=== PATIENT | male | born 1980 | race African-American/Black ===

== ENCOUNTER 2019-10-08 14:43 | Emergency (ER) | payer OTHER, SELFPAY ==
--- NOTE | ~2019-10-08 | XR_ITS ---
EXAMINATION: XR abdomen/kub 1V INDICATION: Right flank pain TECHNIQUE: Supine views of the abdomen were obtained on 2 radiographs. COMPARISON: None FINDINGS: No definite urinary tract calculi are identified. The bowel gas pattern is normal. The visu alized osseous structures are normal. IMPRESSION: 1. No radiographic correlate for the patient's symptoms. Reviewed, dictated and finalized at location A.
[2019-10-08 15:05] VITALS: BP 186/111; PULSE 93; RESP 16; TEMP 37.4; O2SAT 97
--- NOTE | 2019-10-08 15:17 | ED.MALEGU ---
HPI - Male Genitourinary General Chief complaint: Urogenital-Male Stated complaint: right side pain Time Seen by Provider: 10/08/19 15:08 Source: patient and RN notes reviewed Mode of arrival: ambulatory Limitations: no limitations History of Present Illness HPI Narrative: 39-year-old male presents with concern for 2-week history of right flank pain that occasionally radiates to the right abdomen. He reports nausea, without vomiting. Denies diarrhea, reports mild constipation. Reports his last bowel movement was this morning. Reports over the last 2 weeks he has had instances of shortness of breath for which he had a negative coronavirus test that was negative. He denies abdominal pain, fever, body aches, chills, sweats. Reports normal appetite. Reports when he drinks fluid his right flank hurts. MD Complaint: other (Flank pain) Related Data Allergies Allergy/AdvReac Type Severity Reaction Status Date / Time No Known Allergies Allergy Verified 11/02/18 15:03 Review of Systems Review of Systems: Narrative: CONSTITUTIONAL: Denies malaise, chills, sweats, or fever. CARDIOVASCULAR: Denies chest pain, palpitations, or edema. RESPIRATORY: Denies cough. Reports occasional dyspnea. GASTROINTESTINAL: Denies abdominal pain, vomiting, diarrhea, bloody, or mucous stools. Reports nausea GENITOURINARY: Denies dysuria or hematuria. Reports flank pain SKIN: Denies rash or itching. MUSCULOSKELETAL: Denies myalgia. NEUROLOGIC: Denies headache. All systems reviewed & are unremarkable except as noted in HPI and below PMFSH Social History Social History Smoking status: Never smoker Second hand tobacco smoke exposure: No Alcohol intake: current Comments At time of signature, agree with nursing past medical, surgical, social and family history. There is no relevant family history pertinent to the presenting complaint Exam Narrative: Exam Narrative: GENERAL: Well-appearing, well-nourished, and in no acute distress. HEAD: Normocephalic, atraumatic. EYES: PERRLA and EOMI. NECK: Supple. No lymphadenopathy. CHEST: Clear to auscultation. Clear to auscultation, equal breath sounds. No respiratory distress. HEART: Regular rate and rhythm. ABDOMEN: Soft, nontender, nondistended, normal active bowel sounds, no palpable or pulsatile masses. No CVA tenderness MUSCULOSKELETAL: Normal range of motion and strength in all extremities. No midline back tenderness to palpation. No paraspinal tenderness. Transfers from lying to sitting to standing. Right CVA tenderness SKIN: Warm, dry, no rash. NEURO: No focal deficits. Alert and oriented x3. Reflexes intact. Normal gait. PSYCH: Normal mood and affect Course Course Emergency Course: Patient with a diagnostic capability at the [facility] and possible transfer to emergency department for further evaluation. Patient reports he will make an appoint with his primary care doctor and understands reasons to go to the emergency room between now and then. He does not wish to be transferred to the emergency room at this time. Patient is aware of diagnosis, understands and agrees to treatment plan. Anticipatory guidance given. Patient agrees to follow-up as directed and is aware of reasons to seek care at the emergency department. Portions of this record may have been created with voice recognition software Vital Signs Vital signs: Vital Signs Temperature 99.4 F 10/08/19 15:05 Pulse Rate 93 10/08/19 15:05 Respiratory Rate 16 10/08/19 15:05 Blood Pressure 186/111 H 10/08/19 15:05 Pulse Oximetry 97 10/08/19 15:05 Temperature 99.4 F 10/08/19 15:05 Pulse Rate 93 10/08/19 15:05 Respiratory Rate 16 10/08/19 15:05 Blood Pressure 186/111 H 10/08/19 15:05 Pulse Oximetry 97 10/08/19 15:05 Reviewed. Patient has history of hypertension MDM - Male Genitourinary MDM Narrative Medical decision making narrative: No risk factors or findings concerning for epidural abscess,
== END 2019-10-08 16:00 | disposition home or self-care (01) ==
PROVIDERS: Emergency Provider Nurse Practitioner; PCP Family Medicine
DX: M54.5 Low back pain (principal); I10 Essential (primary) hypertension
CPT/HCPCS: 74018; 81003; 99213; G0463

== ENCOUNTER 2019-10-09 10:35 | Outpatient (CLI) | payer OTHER, SELFPAY ==
--- NOTE | ~2019-10-09 | XR_ITS ---
EXAMINATION: XR chest 2V EXAM DATE: 10/09/2019 13:31 INDICATION: Shortness of breath. TECHNIQUE: Frontal and lateral projections of the chest obtained and reviewed. Comparison is made to prior examination from 11/02/2018. FINDINGS: The lungs are clear. There are no pleural effusions. The cardiomediastinal silhouette is within normal limits. There is no pneumothorax suspected. The bones and soft tissues are unremarkab le. IMPRESSION: No acute cardiopulmonary findings. Reviewed, dictated and finalized at location A.
== END 2019-10-09 10:36 ==
PROVIDERS: PCP Family Medicine; Visit Provider Physician Assistant
DX: R06.02 Shortness of breath (principal)
CPT/HCPCS: 71046

== ENCOUNTER 2019-10-14 16:09 | Outpatient (CLI) | payer OTHER, SELFPAY ==
[2019-10-14 16:42] LABS: D Dimer 2.03 ug/mL (<0.48)
[2019-10-14 16:43] LABS: Alanine Aminotransferase 26 U/L (4-50); Albumin Level 4.3 g/dL (3.5-5.1); Alkaline Phosphatase 91 U/L (38-126); Anion Gap 10.9 mmol/L (7-16); Aspartate Amino Transferase 24 U/L (17-59); Bilirubin,Total 0.4 mg/dL (0.2-1.3); Blood Urea Nitrogen 15 mg/dL (9-20); Calcium 8.8 mg/dL (8.4-10.2); Carbon Dioxide 26 mmol/L (22-30); Chloride 106 mmol/L (98-107); Estimated Glomerular Filt Rate > 60; Glucose 136 mg/dL (75-110); Potassium 3.9 mmol/L (3.4-5.0); Sodium 139 mmol/L (137-145)
== END 2019-10-14 16:10 | disposition home or self-care (01) ==
PROVIDERS: PCP Family Medicine; Visit Provider Physician Assistant
DX: R06.02 Shortness of breath (principal); I10 Essential (primary) hypertension
CPT/HCPCS: 36415; 80053; 85380

== ENCOUNTER 2019-10-16 10:28 | Outpatient (CLI) | payer OTHER, SELFPAY ==
--- NOTE | ~2019-10-16 | CT_ITS ---
EXAMINATION: CTA chest PE protocol DATE: 10/16/2019 11:04 INDICATION: Pleurodynia. TECHNIQUE: Computed tomography angiography (CTA) of the chest was performed with 100 mL Omnipaque-350 intravenous contrast timed to evaluate the pulmonary arteries. Coronal maximum intensity projection 3D-reconstructions were created by the technologist. Automated exposure control and iterative reconst ruction technique were employed. The dose-length product was 1205.23 mGy-cm. COMPARISON: Chest CT 11/02/2018 FINDINGS: There is mild dependent atelectasis on the right. There is minimal atelectasis in lingula. There is a small right pleural effusion. The heart size is normal. No pericardial effusion. Main pulm onary artery is enlarged, consistent with pulmonary arterial hypertension. There is a pulmonary embol us in basilar right lower lobe. There is mild thoracic spondylosis. There is mild chronic anterior we dging of multiple lower thoracic vertebral bodies. IMPRESSION: 1. Pulmonary embolus in basilar right lower lobe. 2. Small right pleural effusion. Reviewed, dictated and finalized at location A.
== END 2019-10-16 10:29 | disposition home or self-care (01) ==
PROVIDERS: PCP Family Medicine; Visit Provider Family Medicine
DX: R07.81 Pleurodynia (principal); R79.89 Other specified abnormal findings of blood chemistry; J90 Pleural effusion, not elsewhere classified; I26.99 Other pulmonary embolism without acute cor pulmonale
CPT/HCPCS: 71275; Q9967

== ENCOUNTER 2020-01-23 14:16 | Outpatient (CLI) | payer OTHER, SELFPAY ==
--- NOTE | ~2020-01-23 | CT_ITS ---
EXAMINATION: CTA chest PE protocol EXAM DATE: 01/23/2020 15:00 INDICATION: Fatigue. Pulmonary embolus in follow-up. TECHNIQUE: Spiral CTA of the chest (pulmonary arteries) was performed with 200 cc Omnipaque 350 intr avenous contrast injection. (Patient was injected twice due to poor pulmonary arterial opacification on 1st scan) Images were acquired during the pulmonary arterial phase. Coronal maximum intensity pro jection 3D-reconstructions were created by the technologist on dedicated workstation. Axial, coronal and sagittal reformatted images were reviewed. The dose-length product (DLP) for this examination w as 2166.15 mGy-cm. The exposure was tailored according to patient size (auto mA exposure control), and iterative reconstruction (ASIR) was used as additional dose reduction technique. Comparison is ma de to prior examination from 10/16/2019. FINDINGS: There are no pulmonary emboli in the 1st through 3rd order (central and interlobar) pulmon sharif arteries. Some loss of attenuation in the segmental pulmonary arteries due to respiratory motion , but no intraluminal filling defects suspected. No thoracic aortic dissection. Subsegmental right basilar atelectasis. There are no pleural or pericardial effusions. Tracheobronchial tree is lawler nt. There is no mediastinal, hilar or axillary lymphadenopathy. There is no pneumothorax. Heart normal in size. There is mild coronary arterial calcification, arterial sclerosis. There is hepat ic steatosis. There is thoracic spondylosis without osteoblastic or osteolytic lesions identified. Compared to prior study, can't identify the suspected right lower lobe segmental segment. Previously seen small right pleural effusion has resolved, with improvement in the right basilar dependent atele ctasis. IMPRESSION: 1. Probable resolution of previously seen segmental pulmonary embolism. 2. Right basilar subsegmental atelectasis. Reviewed, dictated and finalized at location B. OPERATOR
[2020-01-23 14:48] LABS: Estimated Glomerular Filt Rate > 60
== END 2020-01-23 14:17 | disposition home or self-care (01) ==
PROVIDERS: PCP Family Medicine; Visit Provider Internal Medicine Hematology & Oncology
DX: R06.02 Shortness of breath (principal); J98.11 Atelectasis
CPT/HCPCS: 71275; Q9967

== ENCOUNTER 2020-05-27 16:08 | Emergency (ER) | payer OTHER, SELFPAY ==
--- NOTE | ~2020-05-27 | XR_ITS ---
XR knee RT 2V 05/27/2020 16:51 Indication: Right lateral knee pain Procedure: 2 views right knee Comparison: No prior studies for comparison. Findings: There is mild osteoarthritis of the right knee. There is a moderate joint effusion. No acut e fracture is identified. No foreign bodies. Impression: 1: No acute fracture. 2: Moderate joint effusion. Reviewed, dictated and finalized at location A. OLE BUILDER Impression: 1: No acute fracture. 2: Moderate joint effusion.
[2020-05-27 16:25] VITALS: BP 150/100; PULSE 76; RESP 20; TEMP 36.3; O2SAT 99
--- NOTE | 2020-05-27 16:53 | ED.LOWEXIN ---
HPI - Extremity Injury (Lower) General Chief Complaint: Extremity Injury, Lower Stated Complaint: right knee pain Source: patient Mode of arrival: ambulatory Limitations: no limitations History of Present Illness HPI Narrative: Patient is a 39-year-old male who presents complaining of right knee pain. Patient reports he walks significantly for work at over 20,000 steps daily. He reports history of PE in 10/06. He reports stopped taking Eliquis in December. He denies injury to right knee. Reports tenderness with palpation and mild swelling. Patient has a history of psoriasis and psoriasis noted over right knee. MD complaint: knee injury Related Data Home Medications Medication Instructions Recorded Confirmed aspirin 81 mg PO DAILY 02/05/20 05/27/20 Allergies Allergy/AdvReac Type Severity Reaction Status Date / Time No Known Allergies Allergy Verified 05/27/20 16:36 Review of Systems Review of Systems: Narrative: CONSTITUTIONAL: Denies fever, chills, or sweats. EYES: Denies visual changes, redness, or discharge. ENT: Denies rhinorrhea, congestion, sore throat, or otalgia. CARDIOVASCULAR: Denies chest pain, palpitations, or edema. RESPIRATORY: Denies cough or dyspnea. GASTROINTESTINAL: Denies abdominal pain, nausea, vomiting, or diarrhea. GENITOURINARY: Denies dysuria or hematuria. SKIN: Denies rash or itching. MUSCULOSKELETAL: Right knee pain NEUROLOGIC: Denies headache, numbness, dizziness, or weakness. PSYCHIATRIC: Denies anxiety or depression. [facility] Past Medical History Medical History (Updated 05/27/20 @ 17:07 by DOMINGA Hogan) Hypertension Psoriasis Pulmonary embolus Social History Social History Smoking packs per day: 1 Smoking cigarettes per day: 20.0 Years smoked: 20 Smoking pack-years: 20.00 Smoking status: Current every day smoker (1 pdd currently) Tobacco type: cigarettes Second hand tobacco smoke exposure: No Alcohol intake: current Gender identity (if verbalized by the patient): Male Spiritual care concerns: No Comments At the time of signature, I have reviewed and agree with nursing past medical, surgical, social, and family history unless otherwise noted. Please see nursing chart for further information. There is no relevant family history pertinent to the presenting complaint. Exam Narrative: Exam Narrative: GENERAL: Well-appearing, well-nourished, and in no acute distress. HEAD: Normocephalic, atraumatic. EYES: EOMI. No redness or drainage. Conjunctiva are normal. ENT: Mucous membranes pink and moist. CHEST: No respiratory distress. HEART: Regular rate and rhythm. GI: Soft, nontender without rebound, or guarding. EXTREMITIES: Normal range of motion. Mild edema and tenderness with palpation to right lateral knee SKIN: Warm, dry, no rash. NEURO: No focal deficits. Alert and oriented x3. Gait steady. PSYCH: Normal affect. No signs of depression or anxiety. Course Vital Signs Vital signs: Vital Signs Temperature 36.3 C L 05/27/20 16:25 Pulse Rate 76 05/27/20 16:25 Respiratory Rate 20 05/27/20 16:25 Blood Pressure 150/100 H 05/27/20 16:25 Pulse Oximetry 99 05/27/20 16:25 Temperature 36.3 C L 05/27/20 16:25 Pulse Rate 76 05/27/20 16:25 Respiratory Rate 20 05/27/20 16:25 Blood Pressure 150/100 H 05/27/20 16:25 Pulse Oximetry 99 05/27/20 16:25 Reviewed. Patient has been instructed to follow-up with his PCP regarding his blood pressure. MDM - Extremity Injury (Lower) MDM Narrative Medical decision making narrative: Patient's x-ray shows no fracture or abnormality. X-ray shows mild osteoarthritis and small knee effusion. Norm wrap applied. And patient to follow-up with PCP in 3 to 5 days. Patient is stable for discharge to home with outpatient follow-up as needed. Differential Diagnosis Differential diagnosis: Likely other (Consideration of the following c
== END 2020-05-27 17:14 | disposition home or self-care (01) ==
PROVIDERS: Emergency Provider Nurse Practitioner; PCP Family Medicine
DX: S86.911A Strain of unspecified muscle(s) and tendon(s) at lower leg level, right leg, initial encounter (principal); X58.XXXA Exposure to other specified factors, initial encounter; I10 Essential (primary) hypertension; Z79.82 Long term (current) use of aspirin; Z86.711 Personal history of pulmonary embolism
CPT/HCPCS: 73560; 99213; G0463

== ENCOUNTER 2020-10-30 09:02 | Outpatient (CLI) | payer OTHER, SELFPAY ==
--- NOTE | ~2020-10-30 | CT_ITS ---
EXAMINATION: CTA chest PE protocol DATE: 10/30/2020 09:37 INDICATION: Shortness of breath, history of pulmonary embolism TECHNIQUE: Computed tomography angiography (CTA) of the chest was performed with 200 mL Omnipaque-350 intravenous contrast timed to evaluate the pulmonary arteries. Coronal maximum intensity projection 3D-reconstructions were created by the technologist. The dose-length product (DLP) was 2313.34 mGy-cm . Automated exposure control and iterative reconstruction technique were employed. COMPARISON: 01/23/2020 FINDINGS: The pulmonary arteries are moderately well-opacified. No pulmonary embolism is identified. Respiratory motion artifact slightly limits the examination. The lungs are free of acute opacities. T here is no pleural effusion or pneumothorax. No pathologically enlarged thoracic lymph nodes are iden tified. The heart size is normal. Again is chronic anterior wedging of multiple lower thoracic verteb ral bodies. IMPRESSION: 1. No pulmonary embolism or acute cardiopulmonary abnormality. Reviewed, dictated and finalized at location B.
== END 2020-10-30 09:03 | disposition home or self-care (01) ==
PROVIDERS: PCP Family Medicine; Visit Provider Family Medicine
DX: I26.99 Other pulmonary embolism without acute cor pulmonale (principal)
CPT/HCPCS: 71275; Q9967

== ENCOUNTER 2020-11-13 10:13 | Outpatient (CLI) | payer OTHER, SELFPAY ==
--- NOTE | ~2020-11-13 | US_ITS ---
EXAMINATION: US venous doppler [facility] DATE: 11/13/2020 10:53 INDICATION: Lower limb swelling TECHNIQUE: Grayscale ultrasound images without and with compression and Doppler ultrasound images of the bilateral lower extremity veins were obtained. COMPARISON: None. FINDINGS: The visualized portions of right common femoral vein, profunda (deep) femoral vein, femoral vein, pop liteal vein, posterior tibial veins, peroneal veins, gastrocnemius vein and greater saphenous vein ou tflow are patent. The visualized portions of left common femoral vein, profunda femoral vein, femoral vein, popliteal v ein, posterior tibial veins, peroneal veins, gastrocnemius vein and greater saphenous vein outflow ar e patent. IMPRESSION: 1. No deep venous thrombosis in either lower limb. Reviewed, dictated and finalized at location B.
== END 2020-11-13 10:14 | disposition home or self-care (01) ==
LOC: ANHIMG 10:17
PROVIDERS: PCP Family Medicine; Visit Provider Family Medicine
DX: R60.0 Localized edema (principal); Z86.718 Personal history of other venous thrombosis and embolism
CPT/HCPCS: 93970

== ENCOUNTER 2020-12-12 09:28 | Emergency (ER) | payer OTHER, SELFPAY ==
--- NOTE | ~2020-12-12 | XR_ITS ---
EXAMINATION: XR ankle RT min 3V EXAM DATE: 12/12/2020 11:01 INDICATION: Right lateral ankle pain states he walks a lot. TECHNIQUE: Right ankle frontal, lateral and oblique projections obtained and reviewed. There is no p rior study for comparison. FINDINGS: The right ankle mortise appears intact. No evidence of talar osteochondral defect. Small inferior calcaneal spur. There are no acute fractures or dislocations identified. There is no subcu taneous gas. The soft tissue is unremarkable. There are no radiopaque foreign bodies. IMPRESSION: Small right calcaneal spur. Reviewed, dictated and finalized at location A. IMPRESSION: Small right calcaneal spur.
[2020-12-12 09:50] VITALS: BP 148/91; PULSE 71; RESP 16; TEMP 36.7; O2SAT 98
--- NOTE | 2020-12-12 10:11 | ED.GENADULT ---
HPI - General Adult General Chief complaint: Extremity Injury, Lower Stated complaint: right ankle pain Time Seen by Provider: 12/12/20 10:11 Source: patient Mode of arrival: ambulatory Limitations: no limitations History of Present Illness HPI narrative: 40-year-old male patient presents to the [facility] with complaints of right ankle pain that started 2 days ago. Patient states he walks often at work. Patient states he has been having swelling and most of the pain is to the lateral side of the ankle. Patient denies any specific injury to the ankle that he is aware of. Related Data Home Medications Medication Instructions Recorded Confirmed aspirin 81 mg PO DAILY 02/05/20 12/12/20 Allergies Allergy/AdvReac Type Severity Reaction Status Date / Time No Known Allergies Allergy Verified 12/12/20 10:03 Review of Systems Review of Systems: CONSTITUTIONAL: Denies fever, chills, or sweats. EYES: Denies visual changes, redness, or discharge. ENT: Denies rhinorrhea, congestion, sore throat, or otalgia. CARDIOVASCULAR: Denies chest pain, palpitations, or edema. RESPIRATORY: Denies cough or dyspnea. GASTROINTESTINAL: Denies abdominal pain, nausea, vomiting, or diarrhea. GENITOURINARY: Denies dysuria or hematuria. SKIN: Denies rash or itching. MUSCULOSKELETAL: Denies back pain, joint pain, or myalgia. Positive right ankle pain NEUROLOGIC: Denies headache, numbness, or weakness. PSYCHIATRIC: Denies anxiety or depression. PMFSH Past Medical History Medical History Hypertension Obesity, morbid, BMI 40.0-49.9 Psoriasis Pulmonary embolus Tobacco abuse Urinary symptom or sign Social History Social History Smoking packs per day: 1 Smoking cigarettes per day: 20.0 Years smoked: 20 Smoking pack-years: 20.00 Smoking status: Current every day smoker Tobacco type: cigarettes Second hand tobacco smoke exposure: No Alcohol intake: current Gender identity (if verbalized by the patient): Male Spiritual care concerns: No Comments At the time of my signature I agree with nursing past medical history, surgical, social, and family history. There is no relevant family history pertinent to the presenting complaint. Exam Narrative: GENERAL: Well-appearing, well-nourished, and in no acute distress. HEAD: Normocephalic, atraumatic. EYES: PERRLA and EOMI. ENT: Nares clear, no rhinorrhea or epistaxis. Mucous membranes moist. NECK: Supple. No lymphadenopathy CHEST: Clear to auscultation. No respiratory distress. HEART: Regular rate and rhythm. No murmur heard. Normal peripheral pulses. ABDOMEN: Soft, nontender, nondistended, normal active bowel sounds. EXTREMITIES: Patient is able to bear weight and ambulate without pain. The R ankle is without obvious asymmetry or deformity when compared to the L ankle. Patient can flex/extend but complains of pain with both of these motions, no pain with invert/[place]. No obvious surface trauma, ecchymosis, soft tissue swelling noted to bilateral ankles.. No bony tenderness to palpation over the medial or lateral malleolus. Patient complaining of pain to the lateral side of the ankle. Anterior talofibular ligament, posterior talofibular ligament, calcaneofibular ligament nontender and without swelling. No tenderness or deformity of the midfoot or over the proximal fifth metatarsal. Good DP and posterior tibial pulses and sensation to light touch normal. Talar tilt test is negative for ligament laxity to valgus or vargus stress. Negative anterior draw. Peroneal nerve is intact with strong eversion and plantar flexion. SKIN: Warm, dry, no rash. NEURO: No focal deficits. Alert and oriented x3. Course Reevaluation(s) Reevaluation #1: Reevaluated patient notified him that his x-ray is negative and only shows a little bit of a calcaneal spur which most likely is not causing his lateral p
== END 2020-12-12 11:27 | disposition home or self-care (01) ==
PROVIDERS: Emergency Provider Nurse Practitioner Family; PCP Family Medicine
DX: S93.401A Sprain of unspecified ligament of right ankle, initial encounter (principal); I10 Essential (primary) hypertension; F17.210 Nicotine dependence, cigarettes, uncomplicated; X58.XXXA Exposure to other specified factors, initial encounter
CPT/HCPCS: 73610; 99213; G0463

== ENCOUNTER 2020-12-27 12:59 | Emergency (ER) | payer OTHER, SELFPAY ==
[2020-12-27] VITALS (9 sets, daily range): BP systolic 133–157; BP diastolic 86–98; PULSE 90–104; RESP 20–30; TEMP 37.2; O2SAT 92–95
--- NOTE | ~2020-12-27 | CT_ITS ---
EXAMINATION: CTA chest PE protocol DATE: 12/27/2020 14:39 INDICATION: Shortness of breath. Prior pulmonary embolus and. TECHNIQUE: Computed tomography (CT) pulmonary angiogram of the chest was performed with 200 mL Omnipa que-350 intravenous contrast. Additional 3D reconstructions utilizing coronal maximum intensity proje ction (MIP) were performed. Automated exposure control and iterative reconstruction technique were em ployed. The dose-length product was 1909.70 mGy-cm. COMPARISON: 10/30/2020 FINDINGS: Suboptimal contrast opacification of the pulmonary arteries on both initial and repeat imaging. There is mild streak artifact from dense contrast in the superior vena cava and right atrium. Moderate to severe scattered respiratory motion artifact most prominent in the lower lung zones renders assessmen t in the subsegmental pulmonary arteries is essentially nondiagnostic. Mild decreased sensitivity in the segmental pulmonary arteries, moderately decreased sensitivity in the smaller subsegmental pulmon sharif arteries in the mid and upper lung zones. No pulmonary embolism. Small right pleural effusion. Th ere is consolidation in the right lower lobe with significant corresponding volume loss and favor ate lectasis over pneumonia. Additional smaller regions of consolidation similarly more likely atelectasi s than pneumonia in the left lower lobe, lingula and mild discoid atelectasis in the right middle lob e along the minor fissure. Heart size is normal. No pericardial effusion. Thoracic aorta is normal in caliber with no dissection. No pathologically enlarged thoracic lymphadenopathy. Diffuse hepatic navi atosis. Mild anterior wedging of a few lower thoracic vertebral bodies. Mild thoracic spondylosis. IMPRESSION: 1. No evident pulmonary embolism. Evaluation is however significantly limited by suboptimal contrast opacification of the pulmonary arteries and prominent motion artifact. 2. Regions of consolidation in the bilateral lower lungs most prominent in the right lower lobar ther e is corresponding volume loss and favor atelectasis over pneumonia. 3. Small right pleural effusion. 4. Diffuse hepatic steatosis. Reviewed, dictated and finalized at location A. IMPRESSION: 1. No evident pulmonary embolism. Evaluation is however significantly limited b y suboptimal contrast opacification of the pulmonary arteries and prominent mot ion artifact. 2. Regions of consolidation in the bilateral lower lungs most prominent in the right lower lobar there is corresponding volume loss and favor atelectasis over pneumonia. 3. Small right pleural effusion. 4. Diffuse hepatic steatosis.
[2020-12-27 14:03] LABS: Basophils Percent Auto 0.3 % (0.2-1.2); Eosinophils Absolute Auto 0.2 K/mm3 (0-0.3); Hematocrit 50.7 % (42.0-52.0); Hemoglobin 17.8 g/dL (14.0-18.0); Immature Granulocyte Absolute 0.05 K/mm3 (0.00-0.031); Immature Granulocyte Percent A 0.3 % (0-0.5); Lymphocytes Percent Auto 11.2 % (18.3-44.2); Mean Corpuscular HGB Conc 35.1 g/dl (32-36); Mean Corpuscular Hemoglobin 32.5 pg (26-34); Mean Corpuscular Volume 92.5 fl (80-100); Mean Platelet Volume 8.6 fl (7.4-10.4); Monocytes Absolute Auto 1.5 K/mm3 (0.1-0.6); Monocytes Percent Auto 10.5 % (2.6-8.5); Neutrophils Percent Auto 76.7 % (45.5-73.1); Platelet Count Result 253 k/mm3 (150-375); Red Blood Count 5.48 M/mm3 (4.6-6.20); Red Cell Distribution Width 13.2 % (11.5-14.5); White Blood Count 14.3 K/mm3 (4.5-10.0)
[2020-12-27] MEDS: KETOROLAC 30 MG/ML VIAL (*BKC) IV PUSH (14:09)
[2020-12-27] MEDS: SODIUM CHLORIDE 0.9% IV 1,000 ML 999 ML IV CONT (14:09)
[2020-12-27 14:12] LABS: Alanine Aminotransferase 24 U/L (4-50); Albumin Level 4.8 g/dL (3.5-5.1); Alkaline Phosphatase 90 U/L (38-126); Anion Gap 10 mmol/L (8-16); Aspartate Amino Transferase 24 U/L (17-59); Bilirubin,Total 0.9 mg/dL (0.2-1.3); Blood Urea Nitrogen 13 mg/dL (9-20); Carbon Dioxide 25 mmol/L (22-30); Chloride 103 mmol/L (98-107); Estimated CRCL calculation 191 ml/min; Estimated Glomerular Filt Rate > 60; Glucose 115 mg/dL (65-110); Magnesium 1.8 mg/dL (1.6-2.3); Sodium 138 mmol/L (137-145)
[2020-12-27 14:13] LABS: INR 1.5; Prothrombin Time 17.9 Seconds (11.1-14.7)
[2020-12-27 14:14] LABS: Partial Thromboplastin Time 36.4 SECONDS (22.3-36.8)
[2020-12-27 14:24] LABS: Troponin I < 0.012 ng/mL (0.000-0.034)
--- NOTE | 2020-12-27 14:27 | ECG_ITS ---
Measurements Intervals [place] Rate: 100 P: 50 WI: 176 QRS: 19 QRSD: 105 T: 13 QT: 342 QTc: 441 Interpretive Statements SINUS TACHYCARDIA LEFT ATRIAL ENLARGEMENT DELAYED PRECORDIAL R/S TRANSITION BORDERLINE T WAVE ABNORMALITY- INFERIOR LEADS BASELINE ARTIFACT- II, III, AVL BORDERLINE ECG Electronically Signed On 12-28-2020 8:00:32 CDT by Jassi Young D.O.
--- NOTE | 2020-12-27 17:48 | ED.SOB ---
HPI - SOB/Dyspnea General Chief Complaint: Shortness of Breath/Dyspnea Stated Complaint: i think i have pneumonia Time Seen by Provider: 12/27/20 13:10 Source: patient Mode of arrival: ambulatory Limitations: no limitations History of Present Illness HPI Narrative: 40-year-old male history of obesity, hypertension and PE in the past complaining of cough, subjective fever and right lower chest pain for 2 days. Patient is taken Tylenol without relief. Cough worse at night and worse with exertion. And worse with laying flat. Immunizations up-to-date including Covid. No known sick contacts. No recent hospitalizations. Speaking full sentences with difficulty. Pain worse with inspiration described as sharp, nonradiating also worse with cough. MD elicited complaint: shortness of breath, cough and pain with inspiration Pertinent past history: PE and DVT Onset (ago): day(s) (2) Context: occurred during exertion Timing: progressively worsening Severity: moderate Exacerbating factors: exertion and coughing Relieving factors: nothing and rest Known history of: PE Associated symptoms: pain with inspiration, fever, diaphoresis and chest congestion Treatment prior to arrival: other (Tylenol, OTC cough medicine.) Related Data Home oxygen amount: none Home Medications Medication Instructions Recorded Confirmed aspirin 81 mg PO DAILY 02/05/20 12/12/20 amlodipine 12/27/20 labetalol 12/27/20 lisinopril 12/27/20 triamterene-hydrochlorothiazid tablet 12/27/20 Allergies Allergy/AdvReac Type Severity Reaction Status Date / Time No Known Allergies Allergy Verified 12/12/20 10:03 Review of Systems Review of Systems: CONSTITUTIONAL: fever at home, no weight loss, no confusion EYES: no vision changes, no eye pain ENT: no rhinorrhea, no sore throat, no difficulty swallowing CARDIOVASCULAR: positive for pleuritic chest pain, no leg edema, no palpitations RESPIRATORY: positive for cough, positive for shortness of breath, no hemoptysis GASTROINTESTINAL: no abdominal pain, no nausea, no vomiting, no diarrhea GENITOURINARY: no flank pain, no dysuria, no hematuria SKIN: no rash, no jaundice MUSCULOSKELETAL: no back pain, no trauma. NEUROLOGIC: No headache, no dizziness, no focal weakness PSYCHIATRIC: No hallucinations, no suicidal ideation PMFSH Past Medical History Medical History Hypertension Obesity, morbid, BMI 40.0-49.9 Psoriasis Pulmonary embolus Tobacco abuse Urinary symptom or sign Social History Social History Smoking packs per day: 1 Smoking cigarettes per day: 20.0 Years smoked: 20 Smoking pack-years: 20.00 Smoking status: Current every day smoker Tobacco type: cigarettes Second hand tobacco smoke exposure: No Alcohol intake: current Gender identity (if verbalized by the patient): Male Spiritual care concerns: No Exam Narrative: General: alert, afebrile, answering all questions appropriately Head: normocephalic, atraumatic Eyes: EOMI bilaterally, anicteric, no injection ENT: moist mucous membranes, oropharynx patent, no rhinorrhea Neck: supple, trachea midline, no JVD Chest: equal chest rise bilaterally, no chest wall trauma noted Lungs: decreased BS R base, respirations unlabored CV: regular rate, 1-2+ MITZY B, calf size equal bilaterally Abd: soft, non-distended, non-tender, no rebound, no gaurding, negative Bronson's EXT: no deformity noted, moving all extremities equally Skin: warm, dry, no pallor Neuro: alert, oriented x 3; CN 2-12 grossly intact, no dysarthria Psych: affect appropriate, though content normal Course Course Emergency Course: Pleuritic chest pain improved after Toradol IV. Pulse improved with pulse in the 90s, pulse ox 94 to 96% on room air. IV antibiotics given for community-acquired pneumonia. Patient does not wish to stay in the ambulating without difficulty
== END 2020-12-27 18:15 | disposition home or self-care (01) ==
PROVIDERS: Emergency Provider Emergency Medicine; PCP Family Medicine
DX: J18.9 Pneumonia, unspecified organism (principal); R07.81 Pleurodynia; I10 Essential (primary) hypertension; Z86.711 Personal history of pulmonary embolism; E66.9 Obesity, unspecified; Z68.42 Body mass index [BMI] 45.0-49.9, adult; F17.210 Nicotine dependence, cigarettes, uncomplicated; K76.0 Fatty (change of) liver, not elsewhere classified; R00.0 Tachycardia, unspecified; R94.31 Abnormal electrocardiogram [ECG] [EKG]
CPT/HCPCS: 36415; 71275; 80053; 83735; 84484; 85025; 85610; 85730; 87040; 93005; 96361; 96365; 96367; 96375; 99284; J0456; J0696; J1885; J7030; Q9967

== ENCOUNTER 2021-12-30 12:57 | Emergency (ER) | payer OTHER, SELFPAY ==
--- NOTE | 2021-12-30 13:22 | ED.URI ---
HPI - URI/Sore Throat General Chief Complaint: Upper Respiratory Infection Stated Complaint: uri Time Seen by Provider: 12/30/21 14:46 Source: patient and RN notes reviewed Mode of arrival: ambulatory Limitations: no limitations History of Present Illness HPI Narrative: 41-year-old male presents with concern for 1 week history of sinus congestion, pressure, drainage, sore throat, cough, general malaise. Reports nighttime cough is worse. He reports several members of his family have similar illness. MD elicited complaint: cough, sore throat and nasal congestion Related Data Home Medications Medication Instructions Recorded Confirmed aspirin 81 mg tablet 81 mg PO DAILY 02/05/20 12/30/21 Allergies Allergy/AdvReac Type Severity Reaction Status Date / Time No Known Allergies Allergy Verified 12/30/21 14:13 Review of Systems Review of Systems: CONSTITUTIONAL: Reports malaise EYES: Denies visual changes, redness, or discharge. ENT: Reports rhinorrhea, congestion, and sore throat. Denies sinus pain, otalgia CARDIOVASCULAR: Denies chest pain, palpitations, or edema. RESPIRATORY: Reports cough. Denies dyspnea. GASTROINTESTINAL: Denies abdominal pain, nausea, vomiting, diarrhea SKIN: Denies rash or itching. MUSCULOSKELETAL: Denies myalgia. NEUROLOGIC: Denies headache. All systems reviewed & are unremarkable except as noted in HPI and below PMFSH Past Medical History Medical History Hypertension Obesity, morbid, BMI 40.0-49.9 Psoriasis Pulmonary embolus Tobacco abuse Urinary symptom or sign Social History Social History Smoking packs per day: 1 Smoking cigarettes per day: 20.0 Years smoked: 20 Smoking pack-years: 20.00 Smoking status: Smoker, status unknown Tobacco type: cigarettes Second hand tobacco smoke exposure: No Alcohol intake: current Gender identity (if verbalized by the patient): Male Spiritual care concerns: No Comments At time of signature, agree with nursing past medical, surgical, social and family history. There is no relevant family history pertinent to the presenting complaint Exam Narrative: GENERAL: Nontoxic appearing and in no acute distress. HEAD: Normocephalic EYES: PERRLA, conjunctivae clear ENT: Nares clear, turbinates edematous and erythematous, clear discharge. Mucous membranes moist. TM pearly zambrano with dull light reflex bilaterally; no tragal tenderness. Oropharynx not erythematous without lesions. Tonsils not enlarged and without exudate, no drooling, no hoarseness, no trismus, uvula midline. NECK: Supple. No lymphadenopathy CHEST: Clear to auscultation, breath sounds equal. No wheezing, rhonchi, rales, or stridor. No respiratory distress, speaks in full sentences. HEART: Regular rate and rhythm. No murmur heard. SKIN: Warm, dry, no rash. NEURO: Alert and oriented x3. PSYCH: Normal mood and affect Course Course Emergency Course: Patient is aware of diagnosis, understands and agrees to treatment plan. Anticipatory guidance given. Patient agrees to follow-up as directed and is aware of reasons to seek care at the emergency department. Portions of this record may have been created with voice recognition software Level of Care: Express Care Visit Vital Signs Vital signs: Vital Signs Temperature 98.7 F 12/30/21 14:28 Pulse Rate 87 12/30/21 14:28 Respiratory Rate 16 12/30/21 14:28 Blood Pressure 145/81 H 12/30/21 14:28 Pulse Oximetry 98 12/30/21 14:28 Oxygen Delivery Room Air 12/30/21 14:28 Temperature 98.7 F 12/30/21 14:28 Pulse Rate 87 12/30/21 14:28 Respiratory Rate 16 12/30/21 14:28 Blood Pressure 145/81 H 12/30/21 14:28 Pulse Oximetry 98 12/30/21 14:28 Oxygen Delivery Room Air 12/30/21 14:28 Reviewed. MDM - URI/Sore Throat MDM Narrative Medical decision making narrative: Differential diagnosi
[2021-12-30 14:28] VITALS: BP 145/81; PULSE 87; RESP 16; TEMP 37.1; O2SAT 98
== END 2021-12-30 15:02 | disposition home or self-care (01) ==
PROVIDERS: Emergency Provider Nurse Practitioner; PCP Family Medicine
DX: J32.9 Chronic sinusitis, unspecified (principal); J40 Bronchitis, not specified as acute or chronic; F17.210 Nicotine dependence, cigarettes, uncomplicated; I10 Essential (primary) hypertension; Z86.711 Personal history of pulmonary embolism; E66.01 Morbid (severe) obesity due to excess calories; Z68.42 Body mass index [BMI] 45.0-49.9, adult
CPT/HCPCS: 87081; 87880; 99213; G0463

== ENCOUNTER 2024-12-03 15:52 | Emergency (ER) | payer OTHER, SELFPAY ==
[2024-12-03] VITALS (8 sets, daily range): BP systolic 135–144; BP diastolic 80–106; PULSE 69–100; RESP 17–25; TEMP 36.5–37.3; O2SAT 91–96
--- NOTE | ~2024-12-03 | XR_ITS ---
EXAMINATION: XR chest 2V, 12/03/2024 16:39 CDT HISTORY: SOB COMPARISON: No comparisons available. Technique: 2 views obtained. Findings: The lungs are clear, no effusion. No pneumothorax. Heart is normal size. Mediastinal and hilar contours are within normal limits. Bony thorax no acute abnormality. Impression: No acute cardiopulmonary abnormality. Reviewed, dictated and finalized at location A. Impression: No acute cardiopulmonary abnormality.
--- NOTE | ~2024-12-03 | CT_ITS ---
CTA CHEST CLINICAL HISTORY: chest pain h/o PE . COMPARISON: Chest x-ray today TECHNIQUE: Helical CTA performed from thoracic inlet to upper abdomen IV contrast information not listed in PACS Coronal, sagittal reformats. Multiplanar MIPS CT images acquired with automatic exposure control for dose reduction DLP: 2385 mGy-cm FINDINGS: Respiratory motion artifact. Pulmonary arteries: Insufficient opacification. Thoracic Aorta: No dissection or aneurysm. Heart/pericardium: Enlarged. RV/LV ratio: Normal. Lungs/Pleura: A few peripheral areas of groundglass opacity right lung. Small right pleural effusion. Tracheobronchial tree: Patent. Nodes: No enlarged nodes. Bones: No acute bony abnormality. Soft tissues: Unremarkable. Visualized upper abdomen: Cirrhosis, hepatomegaly, steatosis. IMPRESSION: 1. Markedly suboptimal opacification of pulmonary arteries exacerbated by motion artifact makes examination for PE essentially nondiagnostic. 2. Nonetheless, worrisome for PE as some pulmonary arteries appear to contain PE in addition to several pulmonary foci that may represent pulmonary infarcts. 3. Strongly consider repeat scan for verification. Reviewed, dictated and finalized at location R. IMPRESSION: 1. Markedly suboptimal opacification of pulmonary arteries exacerbated by sania on artifact makes examination for PE essentially nondiagnostic. 2. Nonetheless, worrisome for PE as some pulmonary arteries appear to contain PE in addition to several pulmonary foci that may represent pulmonary infarcts. 3. Strongly consider repeat scan for verification.
--- NOTE | 2024-12-03 16:20 | ECG_ITS ---
Test Date: 2024-12-03 16:35:25 Measurements Intervals [place] Rate: 84 P: 68 VT: 168 QRS: 71 QRSD: 104 T: 15 QT: 382 QTc: 452 Interpretive Statements SINUS RHYTHM POSSIBLE LEFT ATRIAL ENLARGEMENT [-0.1mV P-WAVE IN V1/V2] PROBABLE LATERAL MYOCARDIAL INFARCTION , OF INDETERMINATE AGE [35 ms Q WAVE IN I/aVL/V5/V6] ABNORMAL ECG No previous ECG available for comparison Electronically Signed On 12-03-2024 17:19:58 CDT by Marco Antonio Garcia M.D.
[2024-12-03 16:44] LABS: Hematocrit 51.2 % (42.0-52.0); Hemoglobin 18.0 g/dL (14.0-18.0); Immature Granulocyte Percent A 0.3 % (0-0.5); Lymphocytes Absolute Auto 2.59 K/mm3 (0.9-3.2); Mean Corpuscular HGB Conc 35.2 g/dl (32-36); Mean Corpuscular Hemoglobin 33.6 pg (26-34); Mean Corpuscular Volume 95.5 fl (80-100); Nucleated Red Blood Cells Absolute Auto 0.000 K/mm3 (0.0-0.012); Nucleated Red Blood Cells Perc 0.0 % (0.0-0.2); Platelet Count Result 205 k/mm3 (150-375); Red Blood Count 5.36 M/mm3 (4.6-6.20); White Blood Count 13.7 K/mm3 (4.5-10.0)
[2024-12-03 16:46] LABS: Alanine Aminotransferase 28 U/L (6-50); Albumin Level 4.1 g/dL (3.5-5.1); Alkaline Phosphatase 95 U/L (38-126); Anion Gap 7 mmol/L (4-12); Aspartate Amino Transferase 29 U/L (17-59); Bilirubin,Total 0.7 mg/dL (0.2-1.3); Blood Urea Nitrogen 12 mg/dL (9-20); Calcium 8.4 mg/dL (8.4-10.2); Carbon Dioxide 25 mmol/L (22-30); Chloride 106 mmol/L (98-107); Estimated CRCL calculation 189 ml/min; Estimated Glomerular Filt Rate > 60; Glucose 109 mg/dL (65-110); Potassium 3.7 mmol/L (3.4-5.0); Sodium 138 mmol/L (137-145); Total Protein 8.0 g/dL (6.3-8.2)
--- OUTSIDE RECORDS SUMMARY | 2024-12-03 16:47 | XMS_ITS | Clinical Summary ---
Author Organization [facility] Sameer Burrell Address [address] [place] [address] Care Team Providers Care Material Spreader Name Role Phone Janet Davis MD Primary Care Provider [phone] Allergies No known active allergies Medications amLODIPine (NORVASC) 2.5 mg tablet 11/08/2019 Active lisinopriL (PRINIVIL) 40 mg tablet 12/10/2019 Active Xarelto 20 mg Tablet 10/22/2019 Active triamterene-hyd roCHLOROthiazid e (DYAZIDE) 37.5-25 mg capsule Take 1 Capsule by mouth daily in the morning. Active labetaloL (NORMODYNE) 100 mg tablet 12/25/2019 Active Active Problems Problem Noted Date Diagnosed Date Erythrocytosis 12/25/2019 Leukocytosis (leucocytosis) 12/25/2019 Acute pulmonary embolism without acute cor pulmo nale 12/25/2019 Family History Medical History Relation Name Comments Healthy Daughter Healthy Sister Healthy Son 1 Healthy Son 2 Relation Name Status Comments Daughter Alive Mother Sister Alive Son 1 Alive Son 2 Alive Social History Tobacco Use Types Packs/Day Years Used Date Smoking Tobacco: Every Day Cigarettes 1 15 Smokeless Tobacco: Never Alcohol Use Standard Drinks/Week Comments Yes 0 (1 standard drink = 0.6 oz pur e alcohol) occasionlly Sex and Gender Information Value Date Recorded Sex Assigned at Not on file Legal Sex Male 11:12 AM CDT Gender Identity Not on file Sexual Orientation Not on file Last Filed Vital Signs Vital Sign Reading Time Taken Comments Blood Pressure 178/103 01/28/2020 2:25 PM PARENT AIDE first bp 193/108 Pulse 87 01/28/2020 2:25 PM PARENT AIDE Temperature 37.3 C (99.2 F) 01/28/2020 2:25 PM PARENT AIDE Respiratory Rate - - Oxygen Saturation 98% 01/28/2020 2:2 5 PM PARENT AIDE Inhaled Oxygen Concentration - - Weight 186.5 kg (411 lb 3.2 oz) 01/28/2020 2:25 PM PARENT AIDE Height 195.6 cm (6' 5) 01/28/2020 2:25 PM PARENT AIDE Body Mass Index 48.76 01/28/2020 2:25 PM PARENT AIDE Plan of Treatment Health Maintenance Due Date Last Done Comments DTAP/TDAP/TD VACCINES (1 - Tdap) 2001 HEPATITIS B VACCINES (1 of 3 - 19+ 3-dose series) 08/2001 HPV VACCINES (1 - 3-dose SCDM series) 2009 INFLUENZA VACCINE (#1) 2024 Care Teams Material Spreader Relationship Specialty Start Date End Date Janet Davis MD [address] [place] [address] PCP - General Family Practice 12/19/19
--- NOTE | 2024-12-03 19:23 | ED.SOB ---
HPI - SOB/Dyspnea General Chief Complaint: Shortness of Breath/Dyspnea Stated Complaint: DYSPNEA Time Seen by Provider: 12/03/24 16:50 Source: patient Mode of arrival: ambulatory Limitations: no limitations History of Present Illness HPI Narrative: 44-year-old with a history of PE presents to the ER with a complains of pain in the right the lower intercostal area since last night. Patient states that he had a similar pain a few years ago when he was diagnosed with PE. He is presently not on any anticoagulant. Be denies any shortness of breath or cough fever or chills. MD elicited complaint: chest pain Pertinent past history: PE Onset (ago): day(s) (1) Timing: constant Severity: moderate Exacerbating factors: nothing Relieving factors: nothing Known history of: PE Associated symptoms: chest pain Treatment prior to arrival: none Related Data Home oxygen amount: none Home Medications ?Medication ?Instructions ?Recorded ?Confirmed ?Last Taken ?Type risankizumab-rzaa 150 mg/mL 150 mg subcut ONCE 06/06/22 07/01/24 Unknown History subcutaneous syringe (Skyrizi) Allergies Allergy/AdvReac Type Severity Reaction Status Date / Time No Known Allergies Allergy Verified 12/03/24 15:54 Review of Systems Review of Systems: All systems reviewed & are unremarkable except as noted in HPI and below Constitutional: Constitutional: Reports no additional constitutional complaints Eyes: Eyes: Reports no additional eye complaints ENT: Reports system reviewed and no additional complaints, except as documented Cardiovascular: Cardiovascular: Reports as per HPI Respiratory: Respiratory: Reports as per HPI Gastrointestinal: Gastrointestinal: Reports no additional gastrointestinal complaints Musculoskeletal: Musculoskeletal: Reports no additional musculoskeletal complaints [facility] Past Medical History Medical History (Updated 12/03/24 @ 19:25 by Jay Millan MD) Prediabetes Tobacco abuse Obesity, morbid, BMI 40.0-49.9 Urinary symptom or sign Pulmonary embolus Psoriasis Hypertension Social History Social History Smoking packs per day: 1 Smoking cigarettes per day: 20.0 Years smoked: 20 Smoking pack-years: 20.00 Smoking status: Current every day smoker Tobacco type: cigarettes (1 pack per day) Second hand tobacco smoke exposure: No Alcohol intake: current Drinks per week: 7 Substance use: never Substance use type: does not use Lack of Transportation: No Lack of Food: Never True Current Housing: I Have Housing Concerned About Future Housing: No Difficulty Paying Gas/Electric Bills: No Difficulty Paying for Meds: No Currently Unemployed: No Education: High School Diploma/GED Difficulty w/ Childcare or Family Care: No Gender identity (if verbalized by the patient): Male Spiritual care concerns: No Exam Narrative: GENERAL: WELL-APPEARING, WELL-NOURISHED, AND IN NO ACUTE DISTRESS. HEAD: NORMOCEPHALIC, ATRAUMATIC. EYES: PERRLA AND EOMI. ENT: NARES CLEAR, NO RHINORRHEA OR EPISTAXIS. MUCOUS MEMBRANES MOIST. NECK: SUPPLE. CHEST: CLEAR TO AUSCULTATION. NO RESPIRATORY DISTRESS. HEART: REGULAR RATE AND RHYTHM. NO MURMUR HEARD. NORMAL PERIPHERAL PULSES. ABDOMEN: SOFT, NONTENDER, NONDISTENDED, NORMAL ACTIVE BOWEL SOUNDS. EXTREMITIES: NORMAL RANGE OF MOTION. NO EDEMA. SKIN: WARM, DRY, NO RASH. NEURO: NO FOCAL DEFICITS. ALERT AND ORIENTED X3. PSYCH: NORMAL MOOD AND AFFECT. Course Course Emergency Course: NOTIFIED PATIENT ABOUT HIS LAB WORK, CT FINDINGS. ADVISED HIM TO TAKE XARELTO PRESCRIBED. FOLLOW UP WITH HIS PRIMARY DOCTOR. RETURN TO THE ER IF HE HAS INCREASED PAIN OR SHORTNESS OF BREATH. Vital Signs Vital signs: Vital Signs Temperature 36.5 C 12/03/24 15:59 Pulse Rate 91 12/03/24 15:59 Respiratory Rate 17 12/03/24 15:59 Blood Pressure 143/88 H 12/03/24 15:59 Pulse Oximetry 95 12/03/24 15:59 Temperature 37.3 C 12/03/24 18:47 Pulse Rate 95 12/03/24 18:47 Respiratory Rate 18 12/03/24 18:47 Blood Pressure 144/102 H 12/03/24 18:47 Pulse Oximetry 96 12/03/24 18:49 Oxygen Delivery Nasal Cannula 12/03/24 18:49 Oxygen Flow Rate 2 12/03/24 18:49 MDM - SOB/Dyspnea Differential Diagnosis Differential diagnosis: Likely acute exacerbation of chronic obstructive airways disease, community acquired pneumonia and pulmonary embolism Medical Records Attestation: I reviewed the patient's medical records. Lab Data Attestation: I reviewed the patient's lab results. 12/03/24 16:26 12/03/24 16:26 Labs: Lab Results 12/03/24 Range/Units 16:26 WBC 13.7 H (4.5-10.0) K/mm3 RBC 5.36 (4.6-6.20) M/mm3 Hgb 18.0 (14.0-18.0) g/dL Hct 51.2 (42.0-52.0) % MCV 95.5 (80-100) fl MCH 33.6 (26-34) pg MCHC 35.2 (32-36) g/dl RDW 14.2 (11.5-14.5) % Plt Count 205 (150-375) k/mm3 MPV 8.5 (7.4-10.4) fl Immature Gran % (Auto) 0.3 (0-0.5) % Neut % (Auto) 71.1 (45.5-73.1) % Lymph % (Auto) 18.9 (18.3-44.2) % Mcminn % (Auto) 6.9 (2.6-8.5) % Eos % (Auto) 2.3 (0-4.4) % Baso % (Auto) 0.5 (0.2-1.2) % Lymph # (Auto) 2.59 (0.9-3.2) K/mm3 Mcminn # (Auto) 1.0 H (0.1-0.6) K/mm3 Eos # (Auto) 0.3 (0-0.3) K/mm3 Baso # (Auto) 0.1 (0.0-0.1) K/mm3 Abs Immat Gran (auto) 0.04 H (0.00-0.031) K/mm3 Absolute Neuts (auto) 9.8 H (1.3-6.7) K/mm3 Absolute Nucleated RBC 0.000 (0.0-0.012) K/mm3 Nucleated RBC % 0.0 (0.0-0.2) % Sodium 138 (137-145) mmol/L Potassium 3.7 (3.4-5.0) mmol/L Chloride 106 (98-107) mmol/L Carbon Dioxide 25 (22-30) mmol/L Anion Gap 7 (4-12) mmol/L BUN 12 (9-20) mg/dL Creatinine 0.80 (0.7-1.3) mg/dL Estim Creat Clear Calc 189 ml/min Estimated GFR > 60 (59 - ) Glucose 109 (65-110) mg/dL Calcium 8.4 (8.4-10.2) mg/dL Total Bilirubin 0.7 (0.2-1.3) mg/dL AST 29 (17-59) U/L ALT 28 (6-50) U/L Alkaline Phosphatase 95 (38-126) U/L Total Protein 8.0 (6.3-8.2) g/dL Albumin 4.1 (3.5-5.1) g/dL Imaging Data Radiologist's impression: ITS Impressions Chest X-Ray 12/03/24 17:27 Impression: No acute cardiopulmonary abnormality. Chest CTA 12/03/24 18:08 IMPRESSION: 1. Markedly suboptimal opacification of pulmonary arteries exacerbated by motion artifact makes examination for PE essentially nondiagnostic. 2. Nonetheless, worrisome for PE as some pulmonary arteries appear to contain PE in addition to several pulmonary foci that may represent pulmonary infarcts. 3. Strongly consider repeat scan for verification. ECG Data EKG #1: ECG completion date: 12/03/24 ECG completion time: 16:35 EKG Interpretation: normal rate (84), no ectopy, no ST changes, normal QRS and NL axis Discharge Plan Discharge Clinical Impression: Pulmonary embolism Qualifiers: Pulmonary embolism type: unspecified Chronicity: unspecified Acute cor pulmonale presence: without acute cor pulmonale Qualified Code(s): I26.99 - Other pulmonary embolism without acute cor pulmonale Patient Disposition: Home Condition: Stable Instructions: Pulmonary Embolism (ED) Additional Instructions: Take meds as prescribed , follow with your doctor return to ER if your increase in CP or SOB Patient Language: Ukrainian Prescriptions: New Xarelto DVT-PE Treat 30d Start 15 mg (42)- 20 mg (9) tablets,dose pack See Rx Instructions .ROUTE .COMPLEX Qty: 51 0RF Rx Instructions: take one-15 mg tablet twice daily for 21 days, then one-20 mg tablet once daily; must take with meal/food No Action sildenafil [Viagra] 25 mg tablet 25 mg PO DAILY PRN (Reason: sexual activity) Qty: 1 0RF Rx Instructions: administer 30 minutes to 4 hours before activity Skyrizi 150 mg/mL syringe 150 mg subcut ONCE amlodipine 10 mg tablet See Rx Instructions .ROUTE .COMPLEX Qty: 90 3RF Dose Instruction: TAKE ONE TABLET BY MOUTH EVERY DAY Rx Instructions: TAKE ONE TABLET BY MOUTH EVERY DAY lisinopril 40 mg tablet 40 mg PO DAILY Qty: 90 2RF triamterene-hydrochlorothiazid 37.5-25 mg tablet 1 tablet PO DAILY Qty: 90 1RF labetalol 100 mg tablet 100 mg PO BID Qty: 180 3RF Follow-up/Referrals: Janet Davis MD [Primary Care Provider, Family Practice] Time of Disposition: 19:44
[2024-12-03] MEDS: RIVAROXABAN 15 MG TABLET PO (20:03)
== END 2024-12-03 20:09 | disposition home or self-care (01) ==
PROVIDERS: Physician Assistant; Emergency Provider Family Medicine; PCP Family Medicine
DX: I26.99 Other pulmonary embolism without acute cor pulmonale (principal); I10 Essential (primary) hypertension; R73.03 Prediabetes; E66.01 Morbid (severe) obesity due to excess calories; Z68.42 Body mass index [BMI] 45.0-49.9, adult; L40.9 Psoriasis, unspecified; F17.210 Nicotine dependence, cigarettes, uncomplicated; Z86.711 Personal history of pulmonary embolism; R94.31 Abnormal electrocardiogram [ECG] [EKG]
CPT/HCPCS: 36415; 71046; 71275; 80053; 85025; 93005; 99284; A9270; Q9967

== ENCOUNTER 2024-12-04 17:48 | Inpatient (IN) | payer OTHER, SELFPAY ==
--- NOTE | ~2024-12-04 | XR_ITS ---
EXAMINATION: XR chest 1V portable DATE: 12/06/2024 05:23 INDICATION: Pneumonia. Pulmonary embolism. TECHNIQUE: frontal view of the chest was obtained. COMPARISON: Chest radiograph and CT dated 12/04/2024 FINDINGS: Increasing opacities at the bilateral mid to lower lung zones with blunting at the costophrenic angle suggesting this includes small bilateral pleural effusions. No pneumothorax. Heart size is normal. IMPRESSION: 1. Increasing opacities in bilateral mid and lower lung zones consistent with atelectasis, pneumonia and/or pulmonary infarcts likely superimposed over small bilateral pleural effusions. Reviewed, dictated and finalized at location A. IMPRESSION: 1. Increasing opacities in bilateral mid and lower lung zones consistent with a telectasis, pneumonia and/or pulmonary infarcts likely superimposed over small bilateral pleural effusions.
--- NOTE | ~2024-12-04 | CT_ITS ---
CT ABDOMEN AND PELVIS WITHOUT CONTRAST Clinical History: bilateral flank pain ? renal stone Comparison: Renal ultrasound one day prior Technique: Unenhanced axial images lung bases to symphysis pubis Coronal, sagittal reformats CT images acquired with automatic exposure control for dose reduction DLP: 1727 mGy-cm Findings: Without intravenous contrast, sensitivity for detecting visceral parenchymal abnormalities decreased. Lung bases: Bibasilar airspace disease, right lung worse. Visualized heart and pericardium: Cardiomegaly. Liver: Cirrhosis. Enlarged. Steatosis. Gallbladder: Unremarkable. Spleen: Unremarkable. Pancreas: Unremarkable. Adrenal glands: Unremarkable. Kidneys: Right kidney- No hydronephrosis. No renal stones. Left kidney- No hydronephrosis. No renal stones. Distal esophagus/stomach: Unremarkable. Small bowel loops: Normal caliber and wall thickness. Colon: Normal caliber and wall thickness. Normal RLQ appendix. Nodes: No enlarged nodes. Peritoneum: No ascites. No free intraperitoneal air. Urinary bladder: Unremarkable. Prostate: Unremarkable. Bones: No acute bony abnormality. Soft tissues: Unremarkable. Unopacified abdominal aorta: No aneurysmal dilatation. IMPRESSION: 1. Bibasilar pulmonary infarcts and/or pneumonia. 2. No renal stones or hydronephrosis. 3. No other acute abnormality within abdomen or pelvis. Reviewed, dictated and finalized at location R.
--- NOTE | ~2024-12-04 | XR_ITS ---
EXAMINATION: XR chest 1V portable DATE: 12/04/2024 18:33 INDICATION: Shortness of breath TECHNIQUE: frontal view of the chest was obtained. COMPARISON: Chest radiograph and CT dated 12/03/2024 FINDINGS: Interval increase consistent interstitial and airspace opacities at the bilateral lower lung zones which could represent pulmonary edema or pneumonia. No pneumothorax or definitive pleural effusion. The cardiomediastinal silhouette is within normal limits for AP technique. IMPRESSION: 1. Increasing opacities in the bilateral lower lung zones consistent with pulmonary edema or pneumonia. Reviewed, dictated and finalized at location A. IMPRESSION: 1. Increasing opacities in the bilateral lower lung zones consistent with pulmo nary edema or pneumonia.
--- NOTE | ~2024-12-04 | XR_ITS ---
EXAMINATION: XR chest 1V portable DATE: 12/09/2024 09:00 INDICATION: Pulmonary embolism TECHNIQUE: frontal view of the chest was obtained. COMPARISON: Chest radiograph dated 12/06/[address] dated 12/04/2024 FINDINGS: Improved aeration at the bilateral lung bases with some persistent patchy and bandlike opacities in the lower lung zones which could represent pulmonary infarct, atelectasis, pneumonia or some combination thereof. No pleural effusion or pneumothorax. Heart size is normal. IMPRESSION: 1. Decreasing opacities in bilateral lower lung zones which could relate to pulmonary infarcts, atelectasis, pneumonia or some combination thereof. Reviewed, dictated and finalized at location A. IMPRESSION: 1. Decreasing opacities in bilateral lower lung zones which could relate to pul monary infarcts, atelectasis, pneumonia or some combination thereof.
--- NOTE | ~2024-12-04 | US_ITS ---
EXAMINATION: US renal BI DATE: 12/06/2024 16:34 INDICATION: Costovertebral angle tenderness. TECHNIQUE: Multiple ultrasound grayscale images of the kidneys were obtained. COMPARISON: CT 12/04/2024 FINDINGS: The right kidney measures 12.3 x 6.8 x 6.2 cm. The left kidney measures 13.8 x 6.5 x 6.2 cm. The kidneys demonstrate normal parenchymal echogenicity. There is no hydronephrosis. The bladder is normal. IMPRESSION: 1. Normal kidneys. No hydronephrosis. Reviewed, dictated and finalized at location E.
--- NOTE | ~2024-12-04 | US_ITS ---
EXAMINATION: US venous doppler [facility], 12/05/2024 7:45 CDT HISTORY: pe and edema to legs COMPARISON: None Technique: Hartley-scale and color Doppler images were attempted of the lower saphenofemoral junction, common femoral vein,superficial femoral vein, proximal deep femoral vein, proximal deep femoral vein, popliteal vein and posterior tibial veins. Findings: Deep Venous System:There is a thrombus with diminished flow in the left popliteal and posterior tibial veins, the remaining visualized deep venous system is unremarkable Superficial Venous SystemNo superficial thrombophlebitis. Soft tissues: Soft tissues are unremarkable. Impression: Left-sided DVT. Reviewed, dictated and finalized at location A. Impression: Left-sided DVT.
--- NOTE | ~2024-12-04 | CT_ITS ---
EXAMINATION: CTA chest PE abdomen pel DATE: 12/04/2024 19:16 INDICATION: Shortness of breath TECHNIQUE: Computed tomography (CT) pulmonary angiogram of the chest was performed with 100 mL Omnipaque-350 intravenous contrast. Additional 3D reconstructions utilizing coronal maximum intensity projection (MIP) were performed. CT of the abdomen and pelvis was performed with intravenous contrast utilizing the same contrast bolus following a short delay. Automated exposure control and iterative reconstruction technique were employed. The dose-length product was 2813.45 mGy-cm. COMPARISON: None FINDINGS: Chest: Again seen is suboptimal contrast opacification of the pulmonary arteries which limits evaluation some of the smaller subsegmental pulmonary arteries. There is nonetheless sufficient contrast to definitively identified pulmonary emboli in the several of the basilar segmental and subsegmental pulmonary arteries in the bilateral lower lobes. Decreased attenuation in the right upper lobar and posterior segmental pulmonary arteries is also suspicious for pulmonary embolism however there is some streak artifact from adjacent dense contrast in the superior vena cava which decreases specificity. Patchy consolidation and some surrounding groundglass opacities in the right lower lobe which along with a small peripheral small region of peripheral consolidation in the posterior segment right upper lobe with central groundglass opacity are suspicious for secondary pulmonary infarcts with differential including pneumonia. Consolidation at the basilar aspect of the lingula and bandlike opacity extension across the basilar left lower lobe with similar differential also including atelectasis. Tiny right pleural effusion. Heart size is normal. No leftward bowing of the ventricular septum to suggest right heart strain. No pericardial effusion. Thoracic aorta is normal in caliber with no dissection. No pathologically enlarged thoracic lymphadenopathy. Mild bilateral gynecomastia. Moderate lower thoracic spondylosis. Chronic appearing minimal to mild anterior wedging at T6-T12. Abdomen/pelvis: Diffuse hepatic steatosis with focal sparing along the gallbladder fossa. New small amount of likely vicariously excreted contrast related to CT study from one day prior which layers dependently in the otherwise normal gallbladder. Spleen, pancreas, bilateral adrenal glands and kidneys are normal. Bladder is normal. Bowels including the appendix are normal. No free intraperitoneal gas or fluid. No pathologically enlarged abdominal or pelvic lymphadenopathy. Moderate lumbosacral spondylosis with mild spondylosis more cephalad lumbar spine. IMPRESSION: 1. Pulmonary emboli involving multiple basilar segmental and subsegmental pulmonary arteries in the bilateral lower lobes and possibly also in the right upper lobar and posterior segmental pulmonary arteries. No findings of right heart strain. 2. Increasing airspace disease in the bilateral lower lobes, right greater than left and in the posterior right upper lobe suspicious for pulmonary infarcts with differential including pneumonia, atelectasis or some combination thereof. 3. No acute intra-abdominal/pelvic process. 4. Diffuse hepatic steatosis. Reviewed, dictated and finalized at location A. IMPRESSION: 1. Pulmonary emboli involving multiple basilar segmental and subsegmental pulmo nary arteries in the bilateral lower lobes and possibly also in the right upper lobar and posterior segmental pulmonary arteries. No findings of right heart s train. 2. Increasing airspace disease in the bilateral lower lobes, right greater than left and in the posterior right upper lobe suspicious for pulmonary infarcts w ith differential including pneumonia, atelectasis or some combination thereof. 3. No acute intra-abdominal/pelvic process. 4. Diffuse hepatic steatosis.
[2024-12-04 17:49] VITALS: BP 160/98; PULSE 102; RESP 22; TEMP 37.1; O2SAT 91
--- NOTE | 2024-12-04 17:57 | ECG_ITS ---
Test Date: 2024-12-04 18:07:34 Measurements Intervals [place] Rate: 102 P: 56 MT: 174 QRS: 20 QRSD: 104 T: 45 QT: 350 QTc: 456 Interpretive Statements SINUS TACHYCARDIA LEFT ATRIAL ENLARGEMENT [-0.15mV P WAVE IN V1/V2] INCOMPLETE RIGHT BUNDLE BRANCH BLOCK [90+ ms QRS DURATION, TERMINAL R IN V1/V2, 40+ ms S IN I/aVL/V4/V5/V6] ABNORMAL ECG Compared to ECG 12/03/2024 16:35:25 Incomplete right bundle-branch block now present Sinus rhythm no longer present Myocardial infarct finding no longer present Electronically Signed On 12-05-2024 07:57:13 CDT by Marco Antonio Garcia M.D.
[2024-12-04 18:05] VITALS: PULSE 107; RESP 20; O2SAT 83
--- NOTE | 2024-12-04 18:12 | PC.NURSE ---
Pt found to be 80% on RA, Pt placed on 6L NC and brought O2 up to 95%. ED respiratory made aware as well as EDP, Dr. Stevens.
--- NOTE | 2024-12-04 18:15 | ED.SOB ---
HPI - SOB/Dyspnea General Chief Complaint: Shortness of Breath/Dyspnea Stated Complaint: SOB Time Seen by Provider: 12/04/24 18:14 Source: patient Mode of arrival: ambulatory Limitations: no limitations History of Present Illness HPI Narrative: 44 years old white male came to the ED by private car complaining of worsening shortness of breath after being diagnosed with a PE yesterday. Patient was started on Xarelto. Patient is a 191 kg, history of sleep apnea, on BiPAP, hypertension, tobacco dependent, drink alcohol daily, denies any drug use. Came back complaining of chest pain, back pain, abdominal pain with chills worse today compared to yesterday. The above symptom has been steady, worsening with any activities. Related Data Home Medications ?Medication ?Instructions ?Recorded ?Confirmed ?Last Taken ?Type risankizumab-rzaa 150 mg/mL 150 mg subcut ONCE 06/06/22 07/01/24 Unknown History subcutaneous syringe (Skyrizi) Allergies Allergy/AdvReac Type Severity Reaction Status Date / Time No Known Allergies Allergy Verified 12/03/24 15:54 Review of Systems Review of Systems: All systems reviewed & are unremarkable except as noted in HPI and below PMFSH Past Medical History Medical History Prediabetes Tobacco abuse Obesity, morbid, BMI 40.0-49.9 Urinary symptom or sign Pulmonary embolus Psoriasis Hypertension Social History Social History Smoking packs per day: 1 Smoking cigarettes per day: 20.0 Years smoked: 20 Smoking pack-years: 20.00 Smoking status: Current every day smoker Tobacco type: cigarettes (1 pack per day) Second hand tobacco smoke exposure: No Alcohol intake: current Drinks per week: 7 Substance use: never Substance use type: does not use Lack of Transportation: No Lack of Food: Never True Current Housing: I Have Housing Concerned About Future Housing: No Difficulty Paying Gas/Electric Bills: No Difficulty Paying for Meds: No Currently Unemployed: No Education: High School Diploma/GED Difficulty w/ Childcare or Family Care: No Gender identity (if verbalized by the patient): Male Spiritual care concerns: No Exam Narrative: General appearance: Well-developed, well-nourished Skin: Normal color Head: Normocephalic, nontraumatic Eyes: Clear conjunctiva ENT: Oropharynx normal, ears normal, nose normal Neck: Supple, nontender Chest and respiratory: Airway patent, no respiratory distress, no accessory muscle use Heart: Regular rate/rhythm Abdomen: Soft, diffuse abdominal tenderness mainly on the right side, no organomegaly, quiet bowel sounds Vascular: Normal peripheral pulses, normal capillary refill. Musculoskeletal: Normal range of motion, nontender back Neurologic: Alert and oriented ?3, EXTRUSION PROCESS OPERATOR is normal as tested, no gross motor deficit Course Vital Signs Vital signs: Vital Signs Temperature 37.1 C 12/04/24 17:49 Pulse Rate 102 H 12/04/24 17:49 Respiratory Rate 22 H 12/04/24 17:49 Blood Pressure 160/98 H 12/04/24 17:49 Pulse Oximetry 91 12/04/24 17:49 Oxygen Delivery Room Air 12/04/24 17:49 Temperature 37.1 C 12/04/24 17:49 Pulse Rate 107 H 12/04/24 18:05 Respiratory Rate 20 12/04/24 18:05 Blood Pressure 160/98 H 12/04/24 17:49 Pulse Oximetry 83 L 12/04/24 18:05 Oxygen Delivery Room Air 12/04/24 18:05 MDM - SOB/Dyspnea MDM Narrative Medical decision making narrative: Patient came with worsening shortness of breath, been diagnosis of pulmonary embolism yesterday in addition diffuse abdominal pain mainly right upper quadrant Vital signs showing blood pressure 160/98, heart rate 102, saturation on room air 83% Physical examination showing morbidly obese patient, nasal cannula on, 5 L of oxygen, saturation 96%, diffuse abdominal tenderness, difficult to evaluate breath sounds because of the patient body habitus. Differential diagnosis: New extra pulmonary embolism, pneumonia, congestive heart failure, pleural effusion, cholecystitis, pancreatitis, appendicitis, diverticulitis, constipation Blood workup today include CBC, CMP, lipase, troponin, proBNP showed WBC 17.9 hemoglobin 18.6 PT 17.8, INR 1.5 otherwise within normal limit Patient tested negative for COVID flu and RSV EKG on arrival showed sinus tachycardia at 102 beats per minute abnormal finding yesterday are not available today Chest x-ray showed lower lung zones bilaterally showing opacity consistent with pulmonary edema or pneumonia CTA pulmonary showed pulmonary embolism, pneumonia no findings of right heart strain. CT abdomen and pelvis with IV contrast showed no acute abnormality Diagnosis acute hypoxic respiratory failure, hypoxia today more likely secondary to pneumonia on top of pulmonary embolism. I believe the pulmonary embolism is stable condition at this time, CT scan showed no finding of right heart strain. My recommendation to continue Xarelto and to start Rocephin, azithromycin for community-acquired pneumonia. Admit to hospitalist Differential Diagnosis Differential diagnosis: Likely other (As above) Medical Records Attestation: I reviewed the patient's medical records. Lab Data Attestation: I reviewed the patient's lab results. 12/04/24 18:12 12/04/24 18:12 Labs: Lab Results 12/04/24 12/04/24 12/04/24 Range/Units 18:12 18:35 20:12 WBC 17.9 H (4.5-10.0) K/mm3 RBC 5.55 (4.6-6.20) M/mm3 Hgb 18.6 H (14.0-18.0) g/dL Hct 52.6 H (42.0-52.0) % MCV 94.8 (80-100) fl MCH 33.5 (26-34) pg MCHC 35.4 (32-36) g/dl RDW 14.3 (11.5-14.5) % Plt Count 208 (150-375) k/mm3 MPV 8.5 (7.4-10.4) fl Immature Gran % (Auto) 0.3 (0-0.5) % Neut % (Auto) 75.2 H (45.5-73.1) % Lymph % (Auto) 13.8 L (18.3-44.2) % [place] % (Auto) 9.3 H (2.6-8.5) % Eos % (Auto) 1.1 (0-4.4) % Baso % (Auto) 0.3 (0.2-1.2) % Lymph # (Auto) 2.47 (0.9-3.2) K/mm3 [place] # (Auto) 1.7 H (0.1-0.6) K/mm3 Eos # (Auto) 0.2 (0-0.3) K/mm3 Baso # (Auto) 0.1 (0.0-0.1) K/mm3 Abs Immat Gran (auto) 0.06 H (0.00-0.031) K/mm3 Absolute Neuts (auto) 13.4 H (1.3-6.7) K/mm3 Absolute Nucleated RBC 0.000 (0.0-0.012) K/mm3 Nucleated RBC % 0.0 (0.0-0.2) % PT 17.8 H (11.1-14.7) Seconds INR 1.5 APTT 35.9 (22.3-36.8) Seconds Sodium 136 L (137-145) mmol/L Potassium 4.0 (3.4-5.0) mmol/L Chloride 104 (98-107) mmol/L Carbon Dioxide 24 (22-30) mmol/L Anion Gap 8 (4-12) mmol/L BUN 10 (9-20) mg/dL Creatinine 0.90 (0.7-1.3) mg/dL Estim Creat Clear Calc 173 ml/min Estimated GFR > 60 (59 - ) Glucose 126 H (65-110) mg/dL Calcium 8.8 (8.4-10.2) mg/dL Total Bilirubin 1.4 H (0.2-1.3) mg/dL AST 42 (17-59) U/L ALT 37 (6-50) U/L Alkaline Phosphatase 98 (38-126) U/L Troponin I < 0.012 (0.000-0.034) ng/mL NT-Pro-B Natriuret Pep 25 (19.9-100) pg/mL Total Protein 9.1 H (6.3-8.2) g/dL Albumin 4.6 (3.5-5.1) g/dL Lipase 78 (23-300) U/L Urine Color Yellow (Yellow) Urine Appearance Clear (Clear) Urine pH 5.5 (5.0-9.0) Ur Specific [place] 1.017 (1.001-1.035) Urine Protein 1+ H (Negative) mg/dL Urine Glucose (UA) Negative (Negative) mg/dL Urine Ketones Negative (Negative) mg/dL Ur Blood (Man) Trace (Negative) Urine Nitrate Negative (Negative) Urine Bilirubin Negative (Negative) Urine Urobilinogen 1.0 (<2.0) mg/dL Leukocyte Esterase Rfl Negative (Negative) CHANDRIKA/UL Urine RBC 0-2 (0-2) /hpf Urine WBC 0-5 (0-3) /hpf Ur Squamous Epith Cells None seen (Few) /hpf Urine Bacteria None seen /hpf Urine Casts 0-2 Influenza A (RT-PCR) Negative (Negative) Influenza B (RT-PCR) Negative (Negative) RSV (RT-PCR) Negative (Negative) SARS-CoV-2 RNA (RT-PCR) Negative (Negative) ABG Data ABG results: 12/04/24 18:17 Puncture Site Right radial ABG pH 7.462 H ABG pCO2 33.2 L ABG pO2 80.5 ABG PO2/FiO2 Ratio 2.01 ABG HCO3 23.2 ABG O2 Saturation 96.5 ABG O2 Content 26.0 H ABG Base Excess 0.4 A-a Gradient 166.5 Oxyhemoglobin 93.6 Total Hemoglobin 19.8 H O2 Delivery Device Nasal cannula O2 Liters/Min 5.0 FiO2 40 Imaging Data Radiologist's impression: Impressions Chest X-Ray 12/04/24 18:57 IMPRESSION: 1. Increasing opacities in the bilateral lower lung zones consistent with pulmonary edema or pneumonia. Chest/Abdomen/Pelvis CTA 12/04/24 19:35 IMPRESSION: 1. Pulmonary emboli involving multiple basilar segmental and subsegmental pulmonary arteries in the bilateral lower lobes and possibly also in the right upper lobar and posterior segmental pulmonary arteries. No findings of right heart strain. 2. Increasing airspace disease in the bilateral lower lobes, right greater than left and in the posterior right upper lobe suspicious for pulmonary infarcts with differential including pneumonia, atelectasis or some combination thereof. 3. No acute intra-abdominal/pelvic process. 4. Diffuse hepatic steatosis. ECG Data EKG #1: Attestation: I personally reviewed and interpreted this ECG as follows: ECG completion date: 12/04/24 Interpretation: Sinus tachycardia 102 beats per minute, left atrial enlargement, incomplete right bundle-branch block, compared to EKG yesterday incomplete right bundle-branch block now present, sinus rhythm no longer present myocardial infarction finding present Critical Care Time Critical Care Time Critical Care Time: Yes Total Critical Care Time: 30 Discharge Plan Discharge Clinical Impression: Acute and chronic respiratory failure with hypoxia, Pneumonia, Pulmonary air embolism, Morbidly obese, History of sleep apnea Patient Disposition: Still a Patient Condition: Guarded Prognosis Additional Instructions: Admit to hospitalist Patient Language: Danish Prescriptions: No Action sildenafil [Viagra] 25 mg tablet 25 mg PO DAILY PRN (Reason: sexual activity) Qty: 1 0RF Rx Instructions: administer 30 minutes to 4 hours before activity Skyrizi 150 mg/mL syringe 150 mg subcut ONCE Xarelto DVT-PE Treat 30d Start 15 mg (42)- 20 mg (9) tablets,dose pack See Rx Instructions .ROUTE .COMPLEX Qty: 51 0RF Rx Instructions: take one-15 mg tablet twice daily for 21 days, then one-20 mg tablet once daily; must take with meal/food amlodipine 10 mg tablet See Rx Instructions .ROUTE .COMPLEX Qty: 90 3RF Dose Instruction: TAKE ONE TABLET BY MOUTH EVERY DAY Rx Instructions: TAKE ONE TABLET BY MOUTH EVERY DAY lisinopril 40 mg tablet 40 mg PO DAILY Qty: 90 2RF triamterene-hydrochlorothiazid 37.5-25 mg tablet 1 tablet PO DAILY Qty: 90 1RF labetalol 100 mg tablet 100 mg PO BID Qty: 180 3RF
[2024-12-04 18:19] LABS: Hematocrit 52.6 % (42.0-52.0); Hemoglobin 18.6 g/dL (14.0-18.0); Immature Granulocyte Percent A 0.3 % (0-0.5); Lymphocytes Absolute Auto 2.47 K/mm3 (0.9-3.2); Mean Corpuscular HGB Conc 35.4 g/dl (32-36); Mean Corpuscular Hemoglobin 33.5 pg (26-34); Mean Corpuscular Volume 94.8 fl (80-100); Nucleated Red Blood Cells Absolute Auto 0.000 K/mm3 (0.0-0.012); Nucleated Red Blood Cells Perc 0.0 % (0.0-0.2); Platelet Count Result 208 k/mm3 (150-375); Red Blood Count 5.55 M/mm3 (4.6-6.20); White Blood Count 17.9 K/mm3 (4.5-10.0)
[2024-12-04 18:30] LABS: Alanine Aminotransferase 37 U/L (6-50); Albumin Level 4.6 g/dL (3.5-5.1); Alkaline Phosphatase 98 U/L (38-126); Anion Gap 8 mmol/L (4-12); Aspartate Amino Transferase 42 U/L (17-59); Bilirubin,Total 1.4 mg/dL (0.2-1.3); Blood Urea Nitrogen 10 mg/dL (9-20); Calcium 8.8 mg/dL (8.4-10.2); Carbon Dioxide 24 mmol/L (22-30); Chloride 104 mmol/L (98-107); Estimated CRCL calculation 173 ml/min; Estimated Glomerular Filt Rate > 60; Glucose 126 mg/dL (65-110); INR 1.5; Potassium 4.0 mmol/L (3.4-5.0); Prothrombin Time 17.8 Seconds (11.1-14.7); Sodium 136 mmol/L (137-145); Total Protein 9.1 g/dL (6.3-8.2)
[2024-12-04 18:31] LABS: Partial Thromboplastin Time 35.9 Seconds (22.3-36.8)
[2024-12-04 18:31] LABS: Alveolar/Arterial O2 Gradient 166.5 mmHg; Fractional Inspired Oxygen 40 %; HCO3 ABG 23.2 mEq/l (22.0-26.0); Oxygen Content ABG 26.0 %vol (16.0-22.0); Oxygen Saturation ABG 96.5 % (95.0-100.0); PCO2 ABG 33.2 mmHg (35.0-45.0); PO2 ABG 80.5 mmHg (80.0-100.0); PO2 FiO2 Ratio Arterial Blood 2.01 %
--- OUTSIDE RECORDS SUMMARY | 2024-12-04 18:31 | XMS_ITS | Clinical Summary ---
Author Organization [facility] Sameer Burrell Address [address] [place] [address] Care Team Providers Care Fire Alarm Dispatcher Name Role Phone Janet Davis MD Primary Care Provider [phone] Allergies No known active allergies Medications amLODIPine [...] Comments Blood Pressure 178/103 01/28/2020 2:25 PM ORANGE PEEL OPERATOR first bp 193/108 Pulse 87 01/28/2020 2:25 PM ORANGE PEEL OPERATOR Temperature 37.3 C (99.2 F) 01/28/2020 2:25 PM ORANGE PEEL OPERATOR Respiratory Rate - - Oxygen Saturation 98% 01/28/2020 2:2 5 PM ORANGE PEEL OPERATOR Inhaled Oxygen Concentration - - Weight 186.5 kg (411 lb 3.2 oz) 01/28/2020 2:25 PM ORANGE PEEL OPERATOR Height 195.6 cm (6' 5) 01/28/2020 2:25 PM ORANGE PEEL OPERATOR Body Mass Index 48.76 01/28/2020 2:25 PM ORANGE PEEL OPERATOR Plan of Treatment Health Maintenance Due Date Last Done Comments DTAP/TDAP/TD VACCINES (1 - Tdap) 2001 HEPATITIS B VACCINES (1 of 3 - 19+ 3-dose series) 08/2001 HPV VACCINES (1 - 3-dose SCDM series) 2009 INFLUENZA VACCINE (#1) 2024 Care Teams Fire Alarm Dispatcher Relationship Specialty Start Date End Date Janet Davis MD [address] [place] [address] PCP - General Family Practice 12/19/19
[2024-12-04 18:33] LABS: Liters per Minute 5.0 LPM; Modified Allen's Test Pass; Site Drawn RIGHT RADIAL
[2024-12-04 18:42] LABS: NT Pro B Type Natriuretic Pept 25 pg/mL (19.9-100); Troponin I < 0.012 ng/mL (0.000-0.034)
[2024-12-04 18:51] LABS: Lipase 78 U/L (23-300)
[2024-12-04 19:16] LABS: Influenza A QL RT-PCR Negative (Negative); Influenza B QL RT-PCR Negative (Negative); RSV RNA, RT-PCR Negative (Negative); SARS-CoV-2 RNA PCR Negative (Negative)
[2024-12-04] MEDS: HYDROmorphone HCL INJ (*CRX) 1 MG/ML SYR 0.5 MG IV PUSH ×2 (19:17→20:53)
[2024-12-04] MEDS: ONDANSETRON INJ 4 MG/2 ML VIAL IV PUSH (19:18)
[2024-12-04 20:24] LABS: Add Urine Microscopic? YES; Appearance Urine Clear (Clear); Glucose Urine UA Negative (Negative); Leukocyte Esterase Ur Negative LEU/UL (Negative); Nitrate Urine Negative (Negative); Non Pathogenic Casts 0-2; Specific Grav Ur 1.017 (1.001-1.035)
[2024-12-04] MEDS: ALBUTEROL SULFATE NEB 2.5 MG/3 ML INH INHALATION (20:43)
[2024-12-04 20:49] VITALS: PULSE 104; RESP 20
--- NOTE | 2024-12-04 22:05 | ADMGEN ---
This patient, Huy Myers Sr., was admitted to Medical Room 240-01. Patient/family oriented to hospital policies and general routines including ID bracelet, bed and alarms, visiting hours, pain management, procedures, bathroom and other care routines, personal items, smoking policy, room service/diet, and visiting hours. Information on how to activate the Rapid Response Team has been discussed. Patient/Family are encouraged to report perceived risks to care and to ask questions if they do not understand what they are told or what they should do.
[2024-12-04] MEDS: cefTRIAXone 1 GM in SODIUM CHLORIDE 0.9% IV 50 ML 100 ML IVPB (22:15)
--- NOTE | 2024-12-04 22:30 | PM.IMHP ---
H&P: HPI History of Present Illness Date/Time: 12/04/24 22:30 Chief Complaint: Shortness of breath Narrative: This is a 44-year-old male patient who was seen in the emergency yesterday for shortness of breath and was found to have pulmonary emboli. The patient did start on Xarelto yesterday however he has been more short of breath today and therefore returned to the emergency room today. His pain also increased and he now has chills that were worse than yesterday. today's repeat chest /abdomen/ pelvis CTA was read as the following 1. Pulmonary emboli involving multiple basilar segmental and subsegmental pulmonary arteries in the bilateral lower lobes and possibly also in the right upper lobar and posterior segmental pulmonary arteries. No findings of right heart strain. 2. Increasing airspace disease in the bilateral lower lobes, right greater than left and in the posterior right upper lobe suspicious for pulmonary infarcts with differential including pneumonia, atelectasis or some combination thereof. 3. No acute intra-abdominal/pelvic process. 4. Diffuse hepatic steatosis. His white count jumped up to 17.9 from 13.7 yesterday. Abnormal ABGs pH was 7.462 with a CO2 of 33.2. Patient was placed on oxygen at 2 L per nasal cannula. Viral serology was negative. The patient was given Zofran, Dilaudid, ceftriaxone, azithromycin, and albuterol nebulizer treatment in the emergency room. He is being admitted to inpatient status on the date of service of 12/04/2024. Review of Systems Constitutional: Constitutional: Reports as per HPI and Reports no additional constitutional complaints Eyes: Eyes: Reports as per HPI and Reports no additional eye complaints ENT: Reports system reviewed and no additional complaints, except as documented and Reports Normal hearing present Cardiovascular: Cardiovascular: Reports no additional cardiovascular complaints Respiratory: Respiratory: Reports as per HPI and Reports no additional respiratory complaints Gastrointestinal: Gastrointestinal: Reports as per HPI and Reports no additional gastrointestinal complaints Musculoskeletal: Musculoskeletal: Reports no additional musculoskeletal complaints Integumentary/Breasts: Skin/Breast: Reports system reviewed and no additional complaints, except as docu Neurologic: Reports system reviewed and no additional complaints, except as documented and Reports Normal hearing present Psychiatric: Psychiatric: Reports no additional psychiatric complaints and Reports as per HPI Hematologic/Lymphatic: Hematologic/Lymphatic: Reports no additional hematologic/lymphatic complaints Allergic/Immunologic: Allergic/Immunologic: Reports no additional allergic/immunologic complaints FORMERLY [facility], [facility] Past Medical History Medical History (Updated 12/04/24 @ 23:00 by Lila Enrique APRN) Pneumonia Obstructive sleep apnea syndrome Prediabetes Tobacco abuse Obesity, morbid, BMI 40.0-49.9 Urinary symptom or sign Pulmonary embolus Psoriasis Hypertension Surgical History Surgical History (Updated 12/04/24 @ 22:56 by Lila Enrique APRN) History of tonsillectomy and adenoidectomy Family History Family History Mother Pulmonary embolism Social History Social History (Updated 12/04/24 @ 22:57 by Lila Enrique APRN) Social History: The patient lives with his . He smokes a pack a cigarettes a day. He drinks approximately 10 mixed drinks a week. He works in the [employer] department for [employer]. Code status: Full code Smoking packs per day: 1 Smoking cigarettes per day: 20.0 Years smoked: 20 Smoking pack-years: 20.00 Smoking status: Current every day smoker Tobacco type: cigarettes Second hand tobacco smoke exposure: No Alcohol intake: current Drinks per week: 10 Substance use: never Substance use type: does not use Lack of Transportation: No Lack of Food: Never True Current Housing: I Have Housing Concerned About Future Housing: No Difficulty Paying Gas/Electric Bills: No Difficulty Paying for Meds: No Currently Unemployed: No Education: High School Diploma/GED Difficulty w/ Childcare or Family Care: No Gender identity (if verbalized by the patient): Male Spiritual care concerns: No Meds Home Medications and Allergies Home Medications ?Medication ?Instructions ?Recorded ?Confirmed ?Type risankizumab-rzaa 150 mg/mL 150 mg subcut [id number] 06/06/22 12/04/24 History subcutaneous syringe (Skyrizi) lisinopril 40 mg tablet 40 mg PO DAILY #90 tabs 08/30/24 12/04/24 Rx triamterene 37.5 1 tablet PO DAILY #90 tabs 08/30/24 12/04/24 Rx mg-hydrochlorothiazide 25 mg tablet labetalol 100 mg tablet 100 mg PO BID #180 tabs 11/24/24 12/04/24 Rx rivaroxaban 15 mg (42)-20 mg (9) See Rx Instructions PO .COMPLEX 12/03/24 12/04/24 Rx tablets in a starter pack (Xarelto #51 ea DVT-PE Treatment 30-Day Starter) amlodipine 10 mg tablet 10 mg PO HS 12/04/24 12/04/24 History Allergies Allergy/AdvReac Type Severity Reaction Status Date / Time No Known Allergies Allergy Verified 12/03/24 15:54 Vital Signs Vital Signs - 24 hr 12/04/24 17:49 12/04/24 18:05 12/04/24 20:49 Temperature 98.8 F Pulse Rate 102 H 107 H 104 H Respiratory Rate 22 H 20 20 Blood Pressure 160/98 H Pulse Oximetry 91 83 L Oxygen Delivery Room Air Room Air Exam Const: General: cooperative, healthy appearing, no acute distress, well developed and awake Nutritional Appearance: well nourished Orientation/consciousness: oriented to person, oriented to place, oriented to time and patient oriented x3 Limitations: no limitations HENMT: Head: normal to inspection, No palpable skull fracture present, normocephalic, atraumatic and abrasion Ears: hearing grossly normal bilaterally Eyes: General: appearance normal, both eyes and all related structures Alignment and Position: alignment normal Periorbital: periorbital findings normal Eyelids: eyelids normal EOM: EOMs intact bilaterally Neck: Neck: normal visual inspection, full ROM and no lymphadenopathy Chest: Chest palpation & inspection: normal inspection of the chest Resp: Effort & Inspection: normal respiratory effort Auscultation: clear to auscultation bilaterally Cardio: Palpation: normal PMI Rate: regular rate Rhythm: regular rhythm Heart sounds: S1 normal heart sound present and S2 normal heart sound present Peripheral pulses: Peripheral pulses 2+ throughout GI: Inspection: normal to inspection Auscultation: normal bowel sounds Rectal Exam: deferred Back/Spine/Pelvis: Cervical Spine: cervical ROM normal Skin: General skin exam: normal color Lesions: no lesions Rashes: no rashes Trauma: no lacerations or abrasions Wounds: no wounds Hair: normal Nails: normal Neuro: General: oriented to person, oriented to place, oriented to time and patient oriented x3 Cranial nerves: Yes Equal, round and reactive pupils present and Yes Normal hearing present Cognition (Neuro): normal cognition Speech: normal speech Motor exam (neuro): 5/5 motor strength present throughout Sensory Exam: normal sensation Extrem: General: normal to inspection, no calf tenderness, edema bilateral and pedal edema bilaterally pitting and 2+ Right upper extremity: normal to inspection and shoulder/upper arm Left upper extremity: normal to inspection and shoulder/upper arm Other: Pretibial edema 2+ pitting edema Psych: Appearance: grossly normal Mental Status: mental status grossly normal Speech and movement: Normal speech and movement present Affect: normal affect Attitude: cooperative Thought process: Normal thought process present Thought content: Yes Normal thought content present Insight: Good insight present (Psych) Judgement: Good judgement present (Psych) H&P: Results Labs Labs: Short CBC 12/04/24 Range/Units 18:12 WBC 17.9 H (4.5-10.0) K/mm3 Hgb 18.6 H (14.0-18.0) g/dL Hct 52.6 H (42.0-52.0) % Plt Count 208 (150-375) k/mm3 BMP 12/04/24 18:12 Sodium 136 L Potassium 4.0 Chloride 104 Carbon Dioxide 24 BUN 10 Creatinine 0.90 Glucose 126 H Calcium 8.8 Cardiac Enzymes 12/04/24 Range/Units 18:12 Troponin I < 0.012 (0.000-0.034) ng/mL Liver Function 12/04/24 Range/Units 18:12 Total Bilirubin 1.4 H (0.2-1.3) mg/dL AST 42 (17-59) U/L ALT 37 (6-50) U/L Alkaline Phosphatase 98 (38-126) U/L Albumin 4.6 (3.5-5.1) g/dL Urine 12/04/24 Range/Units 20:12 Urine Color Yellow (Yellow) Urine Appearance Clear (Clear) Urine pH 5.5 (5.0-9.0) Ur Specific [place] 1.017 (1.001-1.035) Urine Protein 1+ H (Negative) mg/dL Urine Glucose (UA) Negative (Negative) mg/dL ECG Interpretation: SINUS TACHYCARDIA LEFT ATRIAL ENLARGEMENT [-0.15mV P WAVE IN V1/V2] INCOMPLETE RIGHT BUNDLE BRANCH BLOCK [90+ ms QRS DURATION, TERMINAL R IN V1/V2, 40+ ms S IN I/aVL/V4/V5/V6] Compared to ECG 12/03/2024 16:35:25 Incomplete right bundle-branch block now present Sinus rhythm no longer present Myocardial infarct finding no longer present Imaging CT scan - chest: Radiologist's impression: Impressions Chest X-Ray 12/04/24 18:57 IMPRESSION: 1. Increasing opacities in the bilateral lower lung zones consistent with pulmonary edema or pneumonia. Chest/Abdomen/Pelvis CTA 12/04/24 19:35 IMPRESSION: 1. Pulmonary emboli involving multiple basilar segmental and subsegmental pulmonary arteries in the bilateral lower lobes and possibly also in the right upper lobar and posterior segmental pulmonary arteries. No findings of right heart strain. 2. Increasing airspace disease in the bilateral lower lobes, right greater than left and in the posterior right upper lobe suspicious for pulmonary infarcts with differential including pneumonia, atelectasis or some combination thereof. 3. No acute intra-abdominal/pelvic process. 4. Diffuse hepatic steatosis. Assessment and Plan Assessment and plan (1) Pneumonia: Code(s): J18.9 - Pneumonia, unspecified organism Status: Acute Assessment and Plan: -the patient was started on a Zithromax and Rocephin, please monitor his QTC as it is 456 on his last EKG. May consider changing Zithromax to doxycycline if there is further concerns for prolonged QTC -continue with DuoNebs. -sputum and blood cultures are pending. -the patient was placed on O2 at 2 L per nasal cannula due to hypoxia, his oxygen level had gotten down to 83%. He does not wear home O2. -he will need to repeat a chest x-ray in approximately 1 month to see if his pneumonia is cleared. (2) Pulmonary embolus: Code(s): I26.99 - Other pulmonary embolism without acute cor pulmonale Status: Acute Assessment and Plan: -the patient was started on Xarelto yesterday continue with his 15 mg p.o. b.i.d. dosing until 12/25/2024 then he will start on the 20 mg daily. -he has a history of having a PE in the past. He has seen Hematology-Oncology for this in the past. He has had a today genetic testing for clotting in the past as he has a family history. However I did not see a factor v laden and therefore this was ordered. -the patient has an autoimmune disease which puts him more at risk for arrhythmias and PEs -the patient has also lived a more sedentary lifestyle in the last 3 months as he had an ankle fracture and has been on work restrictions. -he also uses tobacco which puts him at risk for blood clots. -his EKG shows a right bundle branch block. An echo has been ordered -CTA shows 1. Pulmonary emboli involving multiple basilar segmental and subsegmental pulmonary arteries in the bilateral lower lobes and possibly also in the right upper lobar and posterior segmental pulmonary arteries. No findings of right heart strain. 2. Increasing airspace disease in the bilateral lower lobes, right greater than left and in the posterior right upper lobe suspicious for pulmonary infarcts with differential including pneumonia, atelectasis or some combination thereof. 3. No acute intra-abdominal/pelvic process. 4. Diffuse hepatic steatosis. -continue with his CPAP machine -venous Dopplers have been ordered as well he has 2+ pitting edema to lower extremities. Negative Homans sign. No calf tenderness noted. -continue with pain management. -wells score for PE is 10.5 PE likely (3) Obstructive sleep apnea syndrome: Code(s): G47.33 - Obstructive sleep apnea (adult) (pediatric) Status: Acute Assessment and Plan: -the patient is compliant with his CPAP machine at home -auto titrate CPAP. (4) Hypertension: Qualifiers: Hypertension type: essential hypertension Qualified Code(s): I10 - Essential (primary) hypertension Code(s): I10 - Essential (primary) hypertension Status: Acute Assessment and Plan: -his blood pressure is elevated today at 160/98. -continue with his Maxzide as the Norvasc may cause some edema. -I am going to give him a 1 time dose of Lasix due to his edema which should help with the blood pressure as well. -continue with labetalol -continue lisinopril -continue with Norvasc (5) Tobacco abuse: Code(s): Z72.0 - Tobacco use Status: Acute Assessment and Plan: -we discussed the importance of smoking cessation. The patient is in agreement Plan The patient also has psoriasis and uses Skyrizi every 3 months. He stated that this clears up his psoriasis. Quality VTE Prophylaxis VTE prophylaxis: pharmacologic ordered
[2024-12-04] MEDS: HYDROmorphone HCL INJ (*CRX) 1 MG/ML SYR IV PUSH (23:00)
[2024-12-04] MEDS: AZITHROMYCIN IV 500 MG in SODIUM CHLORIDE 0.9% IV 250 ML IVPB (23:04)
[2024-12-04 23:06] VITALS: PULSE 106
[2024-12-04] MEDS: RIVAROXABAN 15 MG TABLET PO (23:06)
[2024-12-04] MEDS: LABETALOL HCL 100 MG TABLET PO (23:06)
[2024-12-04 23:25] VITALS: O2SAT 94
[2024-12-04 23:38] VITALS: BP 162/93; PULSE 106; RESP 18; TEMP 37.3; O2SAT 94
[2024-12-05] VITALS (29 sets, daily range): BP systolic 126–153; BP diastolic 65–82; PULSE 80–112; RESP 14–24; TEMP 36.3–38.1; O2SAT 90–96
--- NOTE | 2024-12-05 | ECHO_ITS ---
Patient Info Name: Huy Myers Age: 44 years : 1980 Gender: Male Ht: 77 in Wt: 421 lbs BSA: 3.31 m2 HR: 91 bpm BP: 153 / 82 mmHg Technical Quality: Poor Exam Date: 12/05/2024 10:04 AM Patient Status: I Admit Date: 12/04/2024 Exam Type: CA echo dop color flow w con Complete two-dimensional, color flow and Doppler transthoracic echocardiogram is performed with contrast to opacify the left ventricle and to improve the deliniation of the left ventricle endocardial borders. Staff Referring Physician: Lila Enrique NP Director Drug Safety: Alejandro Swan III Attending Provider: Harrison Morales MD Contrast/Agitated Saline Contrast/Ag. Saline: Definity Amount: 2.00 ml Administered By: Alejandro Swan III Existing IV Access: Yes IV Access Condition: patent with no signs of infiltration Summary 1. Definity contrast administered improved wall motion interpretation. 2. Left ventricular chamber dimension is normal. 3. Left ventricular systolic function is hyperdynamic, estimated at 65-70. 4. There is mild concentric increased left ventricular wall thickness. 5. The left ventricular diastolic function is normal. Left Ventricle Definity contrast administered improved wall motion interpretation. Left ventricular chamber dimension is normal. Left ventricular systolic function is hyperdynamic, estimated at 65-70. There is mild concentric increased left ventricular wall thickness. The left ventricular diastolic function is normal. Tissue doppler was not performed. Right Ventricle Right ventricular chamber dimension is normal. Right ventricular systolic function is normal. Left Atria Left atrial chamber dimension is normal. Right Atria Right atrial chamber dimension is normal. Aortic Valve The aortic valve is trileaflet. There is no aortic valve stenosis. There is no aortic valve regurgitation. Pulmonic Valve There is no pulmonic regurgitation. Mitral Valve There is no mitral valve stenosis. There is no mitral valve regurgitation. Tricuspid Valve There is no tricuspid valve regurgitation. Pericardium/Pleural There is no pericardial effusion. Inferior Vena Cava Normal inferior vena cava with >50% collapse upon inspiration consistent with normal right atrial pressure, 5 mmHg. Aorta The aortic root size at the sinus of Valsalva is normal. Left Ventricular Outflow Tract Name Value Normal LVOT 2D LVOT Diameter 2.6 cm LVOT Doppler LVOT Peak Velocity 138 cm/s LVOT Peak Gradient 8 mmHg LVOT Mean Gradient 4 mmHg LVOT VTI 22 cm LVOT VTI/AV VTI Ratio 1.0 LVOT Stroke Volume 119 ml LVOT CO 31.4 l/min LVOT CI 9.5 l/min/m2 Pulmonic Valve Name Value Normal PV Doppler PV Peak Velocity 108 cm/s PV Peak Gradient 5 mmHg PV Mean Gradient 3 mmHg Mitral Valve Name Value Normal MV Doppler MV Peak Gradient 3 mmHg MV Mean Gradient 2 mmHg MV Area (Cont Eq VTI) 6.6 cm2 Tricuspid Valve Name Value Normal Estimated PAP/RSVP RA Pressure 5 mmHg <=5 Aortic Valve Name Value Normal AV Doppler AV Peak Velocity 150 cm/s AV Peak Gradient 9 mmHg AV Mean Gradient 5 mmHg AV VTI 22 cm AV Area (Cont Eq VTI) 5.4 cm2 >=3.0 AV Area (Cont Eq Jamar) 5.1 cm2 AV DI (Jamar) 0.92 AV Regurgitation 2D LVOT Area 5.5 cm2 Ventricles Name Value Normal LV Dimensions 2D/MM IVS Diastolic Thickness (2D) 1.4 cm 0.6-1.0 LVID Diastole (2D) 4.8 cm 4.2-5.8 LVIW Diastolic Thickness (2D) 1.4 cm 0.6-1.0 LVID Systole (2D) 3.3 cm 2.5-4.0 LVOT Diameter 2.6 cm LV Mass (2D Cubed) 285.87 g 88.00-224.00 LV Mass Index (2D Cubed) 86 g/m2 49-115 Relative Wall Thickness (2D) 0.60 <=0.42 LV Fractional Shortening/Ejection Fraction 2D/MM LV Fractional Shortening (2D) 33 % 25-43 LV EF (2D Teichholz) 61 % Report Signatures
[2024-12-05] MEDS: FUROSEMIDE INJ 40 MG/4 ML VIAL 20 MG IV PUSH (00:13)
[2024-12-05] MEDS: traMADol HCL (*CRX) 25 MG TABLET PO ×3 (01:05→12:06)
[2024-12-05] MEDS: IPRATROPIUM 0.5 MG/ALBUTEROL SULFATE 2.5 MG AMPUL.NEB 3 ML INHALATION ×4 (02:06→20:45)
[2024-12-05] MEDS: HYDROmorphone HCL INJ (*CRX) 1 MG/ML SYR IV PUSH ×6 (03:30→20:20)
[2024-12-05 05:13] LABS: Hematocrit 51.2 % (42.0-52.0); Hemoglobin 17.8 g/dL (14.0-18.0); Immature Granulocyte Percent A 0.5 % (0-0.5); Lymphocytes Absolute Auto 1.89 K/mm3 (0.9-3.2); Mean Corpuscular HGB Conc 34.8 g/dl (32-36); Mean Corpuscular Hemoglobin 34.0 pg (26-34); Mean Corpuscular Volume 97.9 fl (80-100); Nucleated Red Blood Cells Absolute Auto 0.000 K/mm3 (0.0-0.012); Nucleated Red Blood Cells Perc 0.0 % (0.0-0.2); Platelet Count Result 198 k/mm3 (150-375); Red Blood Count 5.23 M/mm3 (4.6-6.20); White Blood Count 18.8 K/mm3 (4.5-10.0)
[2024-12-05 05:41] LABS: Anion Gap 9 mmol/L (4-12); Blood Urea Nitrogen 12 mg/dL (9-20); Calcium 8.4 mg/dL (8.4-10.2); Carbon Dioxide 26 mmol/L (22-30); Chloride 100 mmol/L (98-107); Estimated CRCL calculation 132 ml/min; Estimated Glomerular Filt Rate > 60; Glucose 127 mg/dL (65-110); Potassium 4.2 mmol/L (3.4-5.0); Sodium 135 mmol/L (137-145)
[2024-12-05] MEDS: DOXYCYCLINE IV 100 MG in SODIUM CHLORIDE 0.9% IV 100 ML IVPB ×2 (05:49→17:33)
[2024-12-05] MEDS: LABETALOL HCL 100 MG TABLET PO ×2 (08:26→17:27)
[2024-12-05] MEDS: TRIAMTERENE 37.5 MG/HCTZ 25 MG (MAXZIDE) TABLET 1 TAB PO (08:26)
[2024-12-05] MEDS: RIVAROXABAN 15 MG TABLET PO (08:27)
[2024-12-05] MEDS: PERFLUTREN LIPID MICROSPHERES 1.5 ML VIAL DILUTED TO 10 ML TOTAL VOLUME IV PUSH (10:36)
--- NOTE | 2024-12-05 10:36 | IVDEFINITY ---
Prior to administration of IV Definity the patient was educated on the risks and benefits of the imaging enhancing agent including potential adverse side effects. The patient verbalized understanding. Allergies were verified. No exclusion criteria were identified and at least one of the following inclusion criteria were met: 1) physician request, 2) patient technically difficult to image (per the [place] [employer] guidelines of two or more segments not discernable within the apical view), or 3) questionable left ventricular function. ?
[2024-12-05 11:38] LABS: Alveolar/Arterial O2 Gradient 207.8 mmHg; Fractional Inspired Oxygen 44 %; HCO3 ABG 25.8 mEq/l (22.0-26.0); Oxygen Content ABG 22.8 %vol (16.0-22.0); Oxygen Saturation ABG 89.7 % (95.0-100.0); PCO2 ABG 42.7 mmHg (35.0-45.0); PO2 ABG 57.2 mmHg (80.0-100.0); PO2 FiO2 Ratio Arterial Blood 1.30 %
[2024-12-05 11:41] LABS: Liters per Minute 6.0 LPM; Modified Allen's Test Pass; Site Drawn RIGHT RADIAL
[2024-12-05 11:49] LABS: Troponin I < 0.012 ng/mL (0.000-0.034)
--- NOTE | 2024-12-05 13:44 | PM.CNPUL ---
Assessment and Plan Assessment and plan (1) Pulmonary embolus: Code(s): I26.99 - Other pulmonary embolism without acute cor pulmonale Status: Acute Assessment and Plan: Patient with a history of unprovoked PE in 10/16/2019 treated with Xarelto for [address] angiogram was negative. Hypercoagulable workup by Hematology was negative. Patient presents now with acute bilateral PE and left popliteal and posterior tibial DVT. Patient is a tobacco user, he has psoriasis on Skyrizi, he is a tobacco user and has elevated hemoglobin at 51.2, he had a left ankle fracture on 08/29/2024 and continued meniscus knee pain limiting his mobility although he does tell me he walks 3000 steps a day. He has had no long plane rides. The patient tells me that his mother from a PE in her 30s and his mother's sisters daughter of a PE in her 50s. On 12/05/2024 patient had worsening oxygenation up to 10 L nasal cannula with saturations 89-92 and was changed to Airvo 40 L 91% FiO2 with saturations 96%. The patient tells me today his pain is better wears it was 10/10 and now it is 9/10. He says he is breathing 15% back to his normal with no phlegm or hemoptysis. I decreased him to Airvo 40 L 82% and his saturations were 93%. Lower extremity Dopplers demonstrated left popliteal and posterior tibial thrombus. Echocardiogram demonstrated LVEF 65-70, normal diastolic function, normal right ventricular size and function, normal right atrial size, there was no tricuspid regurg and no RVSP was calculated. Repeat troponin was negative. Patient had an ABG on 5 L nasal cannula with pH of 7.46/33/81. His role to was discontinued he was placed on IV heparin. Plan: patient tells me he is feeling better today. Patient is hemodynamically stable, troponin is negative x2, BNP is 25, no evidence of RV strain on a CT angiogram or his echocardiogram. Agree with IV heparin at this time given his worsening oxygenation he may require procedures in the future and will make sure he can tolerate anticoagulation at this time. Patient may have a genetic component to his PE-DVT and I will complete hypercoagulable workup with anticardiolipin IgG and IgM, beta 2 glycoprotein IgG, factor 9 activity, factor 8 activity, factor 10 activity, MTHFR mutation. Patient has worsening hypoxia which may be related to his PE and or pneumonia. Currently he is requiring Airvo 40 L 82% with saturations 93%. Will follow with you. (2) Pneumonia: Code(s): J18.9 - Pneumonia, unspecified organism Status: Acute Assessment and Plan: Patient presents with 3 day history of fatigue, worsening shortness of breath, 1 day worsening chills with sweats and pleuritic pain. His white blood cell count was 17.9, and a CT angiogram of the chest showed increased bibasilar infiltrates compared to 12/03/2024. Patient tells me that the DuoNebs to help him take deeper breaths. Plan: Patient may have a pneumonia and agree with ceftriaxone and doxycycline at this time. His COVID, influenza, RSV RT PCR assay was negative. I will send a respiratory pathogen panel, urine for Legionella antigen, urine for pneumococcal antigen and serum mycoplasma IgM. Sputum culture has been ordered. Blood cultures are pending. I have ordered procalcitonin, CRP. Patient has no history of asthma or COPD but states that the DuoNebs help him take deeper breaths and will continue these Q 6 hours. (3) Hypoxic respiratory failure: Code(s): J96.91 - Respiratory failure, unspecified with hypoxia Status: Acute Assessment and Plan: 12/04 18:15 Room air, sats 91% then 83% required 5 L. 12/04 23:15 5 L NC, sats 94% 12/05 11:45 10 L NC, sats 92% 12/05 15:00 Airvo 40 L, 82%, sats 93% 12/05/24: Patient has worsening hypoxia which may be related to his PE and or pneumonia. Currently he is requiring Airvo 40 L 82% with saturations 93%. (4) Obstructive sleep apnea syndrome: Code(s): G47.33 - Obstructive sleep apnea (adult) (pediatric) Status: Acute Assessment and Plan: Regarding his obstructive sleep apnea patient tells me he had a home sleep study 4-5 years ago and was told he had severe obstructive sleep apnea was prescribed auto PAP 4-20 by his PCP. He ended up buying the machine from [employer] and now buys his supplies off of [employer]. He uses a nasal mask with and uses the machine every night with good clinical benefit. I have a download from 11/05/2024 through 12/04/2024 from [employer]. He is on AutoSet 4-20. Usage days greater than or equal to 4 hours is 97%. Average usage on days used is 7 hours and 3 minutes. AHI 0.3. Apnea index 0.2, hypopnea index 0.1, central apnea index 0.0. Median pressure is 11.4. Ninety-fifth percentile pressure is 14.0. Maximum pressure is 15.6. Median leak is 4.2. Ninety-fifth percentile leak is 27.2. Maximum leak is 46.5. I interpret this download as excellent compliance, adequate pressures and high leak. 12/05/24: Patient was ordered hospital auto PAP but this machine can only handle 6 L nasal cannula oxygen. I brought a V 60 machine to his room and placed him on CPAP 10 with 80% FiO2 and he said that this was too strong and I decreased him to CPAP 6 and he said that this felt comparable to his home machine. I then trialed the patient on AVAPS with a rate of 14, tidal volume 450, EPAP 4, minimal inspiratory pressure 5, maximal inspiratory pressure 25 and adjusted the flow rates to comfort with a rise of 5 and inspiratory time of 1.2 and he could not tolerate this mode. Plan: Tonight patient should wear V 60 with CPAP 6 and 70% FiO2. If he cannot tolerate this he can be returned to the Airvo. (5) Tobacco abuse: Code(s): Z72.0 - Tobacco use Status: Acute Assessment and Plan: Patient smokes 1 pack per day from age 18 for total of 26 pack years. Patient does not check his saturations at home but does have erythrocytosis. Previous workup showed a negative JAK2 mutation. Current hemoglobin is 17.8 and hematocrit is 51.2. plan: Will follow hematocrit. At this time do not feel he needs a phlebotomy. Smoking cessation counseling was provided. History of Present Illness History of Present Illness Consult date: 12/05/24 Chief complaint: Acute hypoxic respiratory failure, Pneumonia, Pulm Narrative: 10/04/2024: This is a new pulmonary consult for pulmonary embolism and hypoxic respiratory failure 44-year-old man with a history of hypertension, psoriasis, PE on 10/16/2019, severe obstructive sleep apnea on home auto PAP 4-20. regarding patient's prior PE on 10/16/2019 this was an unprovoked PE in the right basilar lower lobe by CT angiogram. He was treated with Xarelto for 3 months. He was seen by Hematology who did a hypercoagulable workup all off of anticoagulation for 1 week which was negative. He has been off anticoagulation since 01/2020. Regarding his obstructive sleep apnea patient tells me he had a home sleep study 4-5 years ago and was told he had severe obstructive sleep apnea was prescribed auto PAP 4-20 by his PCP. He ended up buying the machine from [employer] and now buys his supplies off of [employer]. He uses a nasal mask with and uses the machine every night with good clinical benefit. I have a download from 11/05/2024 through 12/04/2024 from [employer]. He is on AutoSet 4-20. Usage days greater than or equal to 4 hours is 97%. Average usage on days used is 7 hours and 3 minutes. AHI 0.3. Apnea index 0.2, hypopnea index 0.1, central apnea index 0.0. Median pressure is 11.4. Ninety-fifth percentile pressure is 14.0. Maximum pressure is 15.6. Median leak is 4.2. Ninety-fifth percentile leak is 27.2. Maximum leak is 46.5. I interpret this download as excellent compliance, adequate pressures and high leak. On 08/29/2024 the patient fell and fractured his left ankle and tore his left meniscus. He was placed in a boot and the ankle healed but he still has continued knee pain. prior to this injury he would walk 40,000 steps. After this injury he was placed on light duty and is currently walking 3000 steps. On 11/27/2024 the patient noticed that his left leg was more swollen than usual. On 12/01/2024 the patient was watching football in his usual state of health. On 12/02/2024 the patient underwent physical therapy for his leg and said that he felt tired and had some dyspnea on exertion. He denied fever, chills, rigors, phlegm or hemoptysis. On 12/03 the patient had worsening shortness of breath and dyspnea on exertion, developed right-sided pleuritic chest pain and started producing a minimal amount of phlegm. he presented to the emergency room and denied shortness of breath. His blood pressure is 143/88, heart rate 91, respirations 17, saturations on 2 L were 96. White blood cell count was 13.7 creatinine was 0.8. He had a CT angiogram of the chest that had poor contrast timing and was indeterminate for PE. Patient was treated for PE and sent home on Xarelto 15 mg p.o. b.i.d. for 21 days then 20 q.day following. He was told to come back if his symptoms worsened. On 12/04/2024 the patient had sweats, chills, worse right-sided and now left-sided pain And presented to the emergency department. His blood pressure is 160/98, his heart rate 102, respirations 22, room air saturations were 91%. His white blood cell count was 17.9, his creatinine was 0.9, his BNP was 25, his troponin was negative, his COVID influenza RSV RT PCR assay were negative. CT angiogram of the chest abdomen and pelvis demonstrated multiple basilar segmental and subsegmental pulmonary arteries in the bilateral lower lobes and possibly also in the right upper lobar and posterior segmental pulmonary arteries. No findings of right heart strain. Increasing airspace disease in the bilateral lower lobes, right greater than left and in the posterior right upper lobe suspicious for pulmonary infarcts with differential including pneumonia, atelectasis or some combination thereof. patient was started on Xarelto 15 mg p.o. b.i.d., ceftriaxone, azithromycin and given 1 dose of Lasix. Patient was increased to 5 L nasal cannula at 11:15 p.m.. On 12/05/2024 patient had worsening oxygenation up to 10 L nasal cannula with saturations 89-92 and was changed to Airvo 40 L 91% FiO2 with saturations 96%. The patient tells me today his pain is better wears it was 10/10 and now it is 9/10. He says he is breathing 15% back to his normal with no phlegm or hemoptysis. I decreased him to Airvo 40 L 82% and his saturations were 93%. Lower extremity Dopplers demonstrated left popliteal and posterior tibial thrombus. Echocardiogram demonstrated LVEF 65-70, normal diastolic function, normal right ventricular size and function, normal right atrial size, there was no tricuspid regurg and no RVSP was calculated. Repeat troponin was negative. Patient had an ABG on 5 L nasal cannula with pH of 7.46/33/81. His role to was discontinued he was placed on IV heparin. DATA: 12/05/24: Summary 1. Definity contrast administered improved wall motion interpretation. 2. Left ventricular chamber dimension is normal. 3. Left ventricular systolic function is hyperdynamic, estimated at 65-70. 4. There is mild concentric increased left ventricular wall thickness. 5. The left ventricular diastolic function is normal. Right Ventricle Right ventricular chamber dimension is normal. Right ventricular systolic function is normal. Right Atria Right atrial chamber dimension is normal. No TR, no RVSP obtained 12/05/24: EXAMINATION: US venous doppler [facility], 12/05/2024 7:45 CDT HISTORY: pe and edema to legs COMPARISON: None Technique: Hartley-scale and color Doppler images were attempted of the lower saphenofemoral junction, common femoral vein,superficial femoral vein, proximal deep femoral vein, proximal deep femoral vein, popliteal vein and posterior tibial veins. Findings: Deep Venous System:There is a thrombus with diminished flow in the left popliteal and posterior tibial veins, the remaining visualized deep venous system is unremarkable Superficial Venous SystemNo superficial thrombophlebitis. Soft tissues: Soft tissues are unremarkable. Impression: Left-sided DVT. 12/04/24: EXAMINATION: CTA chest PE abdomen pel INDICATION: Shortness of breath COMPARISON: None FINDINGS: Chest: Again seen is suboptimal contrast opacification of the pulmonary arteries which limits evaluation some of the smaller subsegmental pulmonary arteries. There is nonetheless sufficient contrast to definitively identified pulmonary emboli in the several of the basilar segmental and subsegmental pulmonary arteries in the bilateral lower lobes. Decreased attenuation in the right upper lobar and posterior segmental pulmonary arteries is also suspicious for pulmonary embolism however there is some streak artifact from adjacent dense contrast in the superior vena cava which decreases specificity. Patchy consolidation and some surrounding groundglass opacities in the right lower lobe which along with a small peripheral small region of peripheral consolidation in the posterior segment right upper lobe with central groundglass opacity are suspicious for secondary pulmonary infarcts with differential including pneumonia. Consolidation at the basilar aspect of the lingula and bandlike opacity extension across the basilar left lower lobe with similar differential also including atelectasis. Tiny right pleural effusion. Heart size is normal. No leftward bowing of the ventricular septum to suggest right heart strain. No pericardial effusion. Thoracic aorta is normal in caliber with no dissection. No pathologically enlarged thoracic lymphadenopathy. Mild bilateral gynecomastia. Moderate lower thoracic spondylosis. Chronic appearing minimal to mild anterior wedging at T6-T12. Abdomen/pelvis: Diffuse hepatic steatosis with focal sparing along the gallbladder fossa. New small amount of likely vicariously excreted contrast related to CT study from one day prior which layers dependently in the otherwise normal gallbladder. Spleen, pancreas, bilateral adrenal glands and kidneys are normal. Bladder is normal. Bowels including the appendix are normal. No free intraperitoneal gas or fluid. No pathologically enlarged abdominal or pelvic lymphadenopathy. Moderate lumbosacral spondylosis with mild spondylosis more cephalad lumbar spine. IMPRESSION: 1. Pulmonary emboli involving multiple basilar segmental and subsegmental pulmonary arteries in the bilateral lower lobes and possibly also in the right upper lobar and posterior segmental pulmonary arteries. No findings of right heart strain. 2. Increasing airspace disease in the bilateral lower lobes, right greater than left and in the posterior right upper lobe suspicious for pulmonary infarcts with differential including pneumonia, atelectasis or some combination thereof. 3. No acute intra-abdominal/pelvic process. 4. Diffuse hepatic steatosis. 12/27/2020: EXAMINATION: CTA chest PE protocol DATE: 12/27/2020 14:39 INDICATION: Shortness of breath. Prior pulmonary embolus and. TECHNIQUE: Computed tomography (CT) pulmonary angiogram of the chest was performed with 200 mL Omnipaque-350 intravenous contrast. Additional 3D reconstructions utilizing coronal maximum intensity projection (MIP) were performed. Automated exposure control and iterative reconstruction technique were employed. The dose-length product was 1909.70 mGy-cm. COMPARISON: 10/30/2020 FINDINGS: Suboptimal contrast opacification of the pulmonary arteries on both initial and repeat imaging. There is mild streak artifact from dense contrast in the superior vena cava and right atrium. Moderate to severe scattered respiratory motion artifact most prominent in the lower lung zones renders assessment in the subsegmental pulmonary arteries is essentially nondiagnostic. Mild decreased sensitivity in the segmental pulmonary arteries, moderately decreased sensitivity in the smaller subsegmental pulmonary arteries in the mid and upper lung zones. No pulmonary embolism. Small right pleural effusion. There is consolidation in the right lower lobe with significant corresponding volume loss and favor atelectasis over pneumonia. Additional smaller regions of consolidation similarly more likely atelectasis than pneumonia in the left lower lobe, lingula and mild discoid atelectasis in the right middle lobe along the minor fissure. Heart size is normal. No pericardial effusion. Thoracic aorta is normal in caliber with no dissection. No pathologically enlarged thoracic lymphadenopathy. Diffuse hepatic steatosis. Mild anterior wedging of a few lower thoracic vertebral bodies. Mild thoracic spondylosis. IMPRESSION: 1. No evident pulmonary embolism. Evaluation is however significantly limited by suboptimal contrast opacification of the pulmonary arteries and prominent motion artifact. 2. Regions of consolidation in the bilateral lower lungs most prominent in the right lower lobar there is corresponding volume loss and favor atelectasis over pneumonia. 3. Small right pleural effusion. 4. Diffuse hepatic steatosis. 01/23/2020 EXAMINATION: CTA chest PE protocol EXAM DATE: 01/23/2020 15:00 INDICATION: Fatigue. Pulmonary embolus in follow-up. TECHNIQUE: Spiral CTA of the chest (pulmonary arteries) was performed with 200 cc Omnipaque 350 intravenous contrast injection. (Patient was injected twice due to poor pulmonary arterial opacification on 1st scan) Images were acquired during the pulmonary arterial phase. Coronal maximum intensity projection 3D-reconstructions were created by the technologist on dedicated workstation. Axial, coronal and sagittal reformatted images were reviewed. The dose-length product (DLP) for this examination was 2166.15 mGy-cm. The exposure was tailored according to patient size (auto mA exposure control), and iterative reconstruction (ASIR) was used as additional dose reduction technique. Comparison is made to prior examination from 10/16/2019. FINDINGS: There are no pulmonary emboli in the 1st through 3rd order (central and interlobar) pulmonary arteries. Some loss of attenuation in the segmental pulmonary arteries due to respiratory motion, but no intraluminal filling defects suspected. No thoracic aortic dissection. Subsegmental right basilar atelectasis. There are no pleural or pericardial effusions. Tracheobronchial tree is patent. There is no mediastinal, hilar or axillary lymphadenopathy. There is no pneumothorax. Heart normal in size. There is mild coronary arterial calcification, arterial sclerosis. There is hepatic steatosis. There is thoracic spondylosis without osteoblastic or osteolytic lesions identified. Compared to prior study, can't identify the suspected right lower lobe segmental segment. Previously seen small right pleural effusion has resolved, with improvement in the right basilar dependent atelectasis. IMPRESSION: 1. Probable resolution of previously seen segmental pulmonary embolism. 2. Right basilar subsegmental atelectasis. 11/02/2018: EXAMINATION: CTA CHEST (PULMONARY ART) DATE: 11/02/2018 16:49 INDICATION: Hemoptysis. COMPARISON: Chest 2 views 11/02/2018 FINDINGS: The lungs demonstrate minimal atelectasis. No pleural effusion. The heart size is normal. There are coronary artery calcifications. No pericardial effusion. The main pulmonary artery is enlarged, consistent with pulmonary arterial hypertension. There is no pulmonary embolus. There is mild thoracic spondylosis. There is mild chronic anterior wedging of multiple lower thoracic vertebral bodies. IMPRESSION: 1. No pulmonary embolus. 2. Enlargement main pulmonary artery, consistent with pulmonary arterial hypertension. Review of Systems Constitutional: Constitutional: Reports no additional constitutional complaints Eyes: Eyes: Reports no additional eye complaints ENT: Reports system reviewed and no additional complaints, except as documented Cardiovascular: Cardiovascular: Reports no additional cardiovascular complaints Respiratory: Respiratory: Reports no additional respiratory complaints Gastrointestinal: Gastrointestinal: Reports no additional gastrointestinal complaints Musculoskeletal: Musculoskeletal: Reports no additional musculoskeletal complaints Neurologic: Reports system reviewed and no additional complaints, except as documented Psychiatric: Psychiatric: Reports no additional psychiatric complaints Endocrine: Endocrine: Reports no additional endocrine complaints Hematologic/Lymphatic: Hematologic/Lymphatic: Reports no additional hematologic/lymphatic complaints Allergic/Immunologic: Allergic/Immunologic: Reports no additional allergic/immunologic complaints [facility] Past Medical History Medical History (Updated 12/05/24 @ 16:32 by Garett Self MD) Pneumonia Obstructive sleep apnea syndrome Prediabetes Tobacco abuse Obesity, morbid, BMI 40.0-49.9 Urinary symptom or sign Pulmonary embolus Psoriasis Hypertension Surgical History Surgical History (Updated 12/04/24 @ 22:56 by Lila Enrique APRN) History of tonsillectomy and adenoidectomy Family History Family History Mother Pulmonary embolism Social History Social History (Updated 12/04/24 @ 22:57 by Lila Enrique APRN) Social History: The patient lives with his . He smokes a pack a cigarettes a day. He drinks approximately 10 mixed drinks a week. He works in the [employer] department for [employer]. Code status: Full code Smoking packs per day: 1 Smoking cigarettes per day: 20.0 Years smoked: 20 Smoking pack-years: 20.00 Smoking status: Current every day smoker Tobacco type: cigarettes Second hand tobacco smoke exposure: No Alcohol intake: current Drinks per week: 10 Substance use: never Substance use type: does not use Lack of Transportation: No Lack of Food: Never True Current Housing: I Have Housing Concerned About Future Housing: No Difficulty Paying Gas/Electric Bills: No Difficulty Paying for Meds: No Currently Unemployed: No Education: High School Diploma/GED Difficulty w/ Childcare or Family Care: No Gender identity (if verbalized by the patient): Male Spiritual care concerns: No Meds Home Medications and Allergies Home Medications ?Medication ?Instructions ?Recorded ?Confirmed ?Type risankizumab-rzaa 150 mg/mL 150 mg subcut [id number] 06/06/22 12/04/24 History subcutaneous syringe (Skyrizi) lisinopril 40 mg tablet 40 mg PO DAILY #90 tabs 08/30/24 12/04/24 Rx triamterene 37.5 1 tablet PO DAILY #90 tabs 08/30/24 12/04/24 Rx mg-hydrochlorothiazide 25 mg tablet labetalol 100 mg tablet 100 mg PO BID #180 tabs 11/24/24 12/04/24 Rx rivaroxaban 15 mg (42)-20 mg (9) See Rx Instructions PO .COMPLEX 12/03/24 12/04/24 Rx tablets in a starter pack (Xarelto #51 ea DVT-PE Treatment 30-Day Starter) amlodipine 10 mg tablet 10 mg PO HS 12/04/24 12/04/24 History Allergies Allergy/AdvReac Type Severity Reaction Status Date / Time No Known Allergies Allergy Verified 12/03/24 15:54 Vital Signs Vital Signs - 24 hr 12/04/24 17:49 12/04/24 18:05 12/04/24 20:49 Temperature 37.1 C Pulse Rate 102 H 107 H 104 H Respiratory Rate 22 H 20 20 Blood Pressure 160/98 H Pulse Oximetry 91 83 L Oxygen Delivery Room Air Room Air Oxygen Flow Rate 12/04/24 23:06 12/04/24 23:25 12/04/24 23:38 Temperature 37.3 C Pulse Rate 106 H 106 H Respiratory Rate 18 Blood Pressure 162/93 H Pulse Oximetry 94 94 Oxygen Delivery Nasal Cannula Oxygen Flow Rate 5 12/05/24 00:00 12/05/24 02:07 12/05/24 02:07 Temperature Pulse Rate 102 H 95 94 Respiratory Rate 14 14 Blood Pressure Pulse Oximetry 90 Oxygen Delivery Nasal Cannula Oxygen Flow Rate 5 12/05/24 02:26 12/05/24 04:00 12/05/24 04:00 Temperature 36.9 C Pulse Rate 95 96 91 Respiratory Rate 14 18 Blood Pressure 152/82 H Pulse Oximetry 91 92 Oxygen Delivery Nasal Cannula Oxygen Flow Rate 6 12/05/24 06:56 12/05/24 07:01 12/05/24 07:06 Temperature 36.9 C Pulse Rate 94 94 92 Respiratory Rate 18 16 18 Blood Pressure 147/77 H Pulse Oximetry 91 Oxygen Delivery Oxygen Flow Rate 12/05/24 08:00 12/05/24 08:00 12/05/24 08:26 Temperature 36.8 C Pulse Rate 102 H 95 80 Respiratory Rate 18 Blood Pressure 136/74 Pulse Oximetry 93 Oxygen Delivery Oxygen Flow Rate 12/05/24 11:56 12/05/24 12:00 12/05/24 13:07 Temperature 36.3 C L 37.0 C Pulse Rate 82 92 97 Respiratory Rate 24 H 16 20 Blood Pressure 153/75 H 148/70 H Pulse Oximetry 92 93 92 Oxygen Delivery High Flow Nasal Cannula Oxygen Flow Rate 10 12/05/24 13:17 Temperature Pulse Rate 90 Respiratory Rate 18 Blood Pressure Pulse Oximetry Oxygen Delivery Oxygen Flow Rate Exam Const: General: cooperative, comfortable and no acute distress Orientation/consciousness: oriented to person, oriented to place and oriented to time Other: obese HENMT: Head: normal to inspection Ears: hearing grossly normal bilaterally Eyes: General: appearance normal, both eyes and all related structures Neck: Neck: normal visual inspection Chest: Chest palpation & inspection: normal inspection of the chest Resp: Effort & Inspection: normal respiratory effort and able to speak in complete sentences Auscultation: no crackles, no rales, no rhonchi, no wheezes and diminished lung sounds Other: obese Cardio: Jugular venous distension: no JVD GI: Inspection: normal to inspection GI Palp: No abdominal tenderness Skin: General skin exam: normal color Neuro: General: oriented to person, oriented to place and oriented to time Extrem: General: normal to inspection Other: Left lower extremity swelling greater than right. Psych: Appearance: grossly normal Results Laboratory Findings 12/05/24 03:55 12/05/24 03:55 ABG, PT/INR, D-dimer: ABG ABG pH 7.399 (7.350-7.450) 12/05/24 11:34 ABG pCO2 42.7 mmHg (35.0-45.0) 12/05/24 11:34 ABG pO2 57.2 mmHg (80.0-100.0) L 12/05/24 11:34 ABG O2 Saturation 89.7 % (95.0-100.0) L 12/05/24 11:34 PT/INR, D-dimer PT 17.8 Seconds (11.1-14.7) H 12/04/24 18:12 INR 1.5 12/04/24 18:12 Abnormal lab findings: Abnormal Labs 12/04/24 12/04/24 12/04/24 18:12 18:17 20:12 WBC 17.9 H Hgb 18.6 H Hct 52.6 H RDW Neut % (Auto) 75.2 H Lymph % (Auto) 13.8 L [place] % (Auto) 9.3 H [place] # (Auto) 1.7 H Abs Immat Gran (auto) 0.06 H Absolute Neuts (auto) 13.4 H PT 17.8 H ABG pH 7.462 H ABG pCO2 33.2 L ABG pO2 ABG O2 Saturation ABG O2 Content 26.0 H Oxyhemoglobin Total Hemoglobin 19.8 H Sodium 136 L Glucose 126 H Total Bilirubin 1.4 H Total Protein 9.1 H Urine Protein 1+ H 12/05/24 12/05/24 03:55 11:34 WBC 18.8 H Hgb Hct RDW 14.6 H Neut % (Auto) 77.3 H Lymph % (Auto) 10.1 L [place] % (Auto) 11.4 H [place] # (Auto) 2.1 H Abs Immat Gran (auto) 0.09 H Absolute Neuts (auto) 14.5 H PT ABG pH ABG pCO2 ABG pO2 57.2 L ABG O2 Saturation 89.7 L ABG O2 Content 22.8 H Oxyhemoglobin 86.9 L* Total Hemoglobin 18.7 H Sodium 135 L Glucose 127 H Total Bilirubin Total Protein Urine Protein Diagnostic Findings Additional studies: ITS Impressions Chest X-Ray 12/04/24 18:57 IMPRESSION: 1. Increasing opacities in the bilateral lower lung zones consistent with pulmonary edema or pneumonia. Chest/Abdomen/Pelvis CTA 12/04/24 19:35 IMPRESSION: 1. Pulmonary emboli involving multiple basilar segmental and subsegmental pulmonary arteries in the bilateral lower lobes and possibly also in the right upper lobar and posterior segmental pulmonary arteries. No findings of right heart strain. 2. Increasing airspace disease in the bilateral lower lobes, right greater than left and in the posterior right upper lobe suspicious for pulmonary infarcts with differential including pneumonia, atelectasis or some combination thereof. 3. No acute intra-abdominal/pelvic process. 4. Diffuse hepatic steatosis. Venous Doppler Study 12/05/24 08:31 Impression: Left-sided DVT.
[2024-12-05] MEDS: HEPARIN SOD/D5W 100 UNITS/ML 25,000 UNITS/250 ML BAG 15 UNITS IV CONT (14:31)
[2024-12-05] MEDS: HYDROcodone/acetaminophen (*CRX) 5-325 MG TABLET 1 TAB PO ×3 (14:44→23:07)
[2024-12-05 17:01] LABS: Hematocrit 48.2 % (42.0-52.0); Hemoglobin 17.1 g/dL (14.0-18.0); Immature Granulocyte Percent A 0.4 % (0-0.5); Lymphocytes Absolute Auto 2.04 K/mm3 (0.9-3.2); Mean Corpuscular HGB Conc 35.5 g/dl (32-36); Mean Corpuscular Hemoglobin 34.3 pg (26-34); Mean Corpuscular Volume 96.8 fl (80-100); Nucleated Red Blood Cells Absolute Auto 0.000 K/mm3 (0.0-0.012); Nucleated Red Blood Cells Perc 0.0 % (0.0-0.2); Platelet Count Result 185 k/mm3 (150-375); Red Blood Count 4.98 M/mm3 (4.6-6.20); White Blood Count 18.2 K/mm3 (4.5-10.0)
[2024-12-05 17:13] LABS: INR 2.1; Prothrombin Time 22.7 Seconds (11.1-14.7)
[2024-12-05 17:14] LABS: Partial Thromboplastin Time 45.8 Seconds (22.3-36.8)
--- NOTE | 2024-12-05 17:39 | P.PNIM_ITS ---
Progress Note: A&P Assessment and Plan (1) Pneumonia: Code(s): J18.9 - Pneumonia, unspecified organism Status: Acute Assessment and Plan: SOB CT chest bilateral opacities -continue with DuoNebs. F/u Blood and sputum cultures Continue Rocephin and Azithromycin (2) Pulmonary embolus: Code(s): I26.99 - Other pulmonary embolism without acute cor pulmonale Status: Acute Assessment and Plan: With left DVT -CTA shows 1. Pulmonary emboli involving multiple basilar segmental and subsegmental pulmonary arteries in the bilateral lower lobes and possibly also in the right upper lobar and posterior segmental pulmonary arteries. No findings of right heart strain. Venous doppler showed LLE DVT Stopped Xarelto, started on Heparin Monitor I discussed with Pulmonology and agree with the above care (3) Obstructive sleep apnea syndrome: Code(s): G47.33 - Obstructive sleep apnea (adult) (pediatric) Status: Acute Assessment and Plan: -the patient is compliant with his CPAP machine at home -auto titrate CPAP. (4) Hypertension: Qualifiers: Hypertension type: essential hypertension Qualified Code(s): I10 - Essential (primary) hypertension Code(s): I10 - Essential (primary) hypertension Status: Acute Assessment and Plan: -his blood pressure is elevated today at 160/98. -continue with his Maxzide as the Norvasc may cause some edema. -I am going to give him a 1 time dose of Lasix due to his edema which should help with the blood pressure as well. -continue with labetalol -continue lisinopril -continue with Norvasc (5) Tobacco abuse: Code(s): Z72.0 - Tobacco use Status: Acute Assessment and Plan: -we discussed the importance of smoking cessation. The patient is in agreement Plan The patient also has psoriasis and uses Skyrizi every 3 months. He stated that this clears up his psoriasis. Acute hypoxemic respiratory failure On 6 liters oxygen No oxygen at baseline COntinue titrating oxygen Pulmonology following DVT prophylaxis on Heparin infusion Subjective Date/time seen: 12/05/24 17:39 Interval history: Patient appeared mildly dyspneic at bedside Patient was transferred to IMU and started on Heparin infusion Review of Systems Constitutional: Constitutional: Reports as per HPI and Reports no additional constitutional complaints Eyes: Eyes: Reports as per HPI and Reports no additional eye complaints ENT: Reports system reviewed and no additional complaints, except as documented and Reports Normal hearing present Cardiovascular: Cardiovascular: Reports no additional cardiovascular complaints Respiratory: Respiratory: Reports as per HPI and Reports no additional resp iratory complaints Gastrointestinal: Gastrointestinal: Reports as per HPI and Reports no additional gastrointestinal complaints Musculoskeletal: Musculoskeletal: Reports no additional musculoskeletal complaints Integumentary/Breasts: Skin/Breast: Reports system reviewed and no additional complaints, except as docu Neurologic: Reports system reviewed and no additional complaints, except as documented and Reports Normal hearing present Psychiatric: Psychiatric: Reports no additional psychiatric complaints and Reports as per HPI Hematologic/Lymphatic: Hematologic/Lymphatic: Reports no additional hematologic/lymphatic complaints Allergic/Immunologic: Allergic/Immunologic: Reports no additional allergic/immunologic complaints Exam Const: General: cooperative, healthy appearing, no acute distress, well developed, awake and well nourished Nutritional Appearance: well nourished Orientation/consciousness: oriented to person, oriented to place, oriented to time and patient oriented x3 Limitations: no limitations HENMT: Head: normal to inspection, No palpable skull fracture present, normocephalic, atraumatic and abrasion Ears: hearing grossly normal bilaterally Eyes: General: appearance normal, both eyes and all related structures Alignment and Position: alignment normal Periorbital: periorbital findings normal Eyelids: eyelids normal Pupils: Equal, round and reactive pupils present EOM: EOMs intact bilaterally Neck: Neck: normal visual inspection, full ROM and no lymphadenopathy Chest: Chest palpation & inspection: normal inspection of the chest Resp: Effort & Inspection: normal respiratory effort Auscultation: clear to auscultation bilaterally Cardio: Palpation: normal PMI Rate: regular rate Rhythm: regular rhythm Heart sounds: S1 normal heart sound present and S2 normal heart sound present Peripheral pulses: Peripheral pulses 2+ throughout GI: Inspection: normal to inspection Auscultation: normal bowel sounds Rectal Exam: deferred Back/Spine/Pelvis: Cervical Spine: cervical ROM normal Skin: General skin exam: normal color Lesions: no lesions Rashes: no rashes Trauma: no lacerations or abrasions Wounds: no wounds Hair: normal Nails: normal Neuro: General: oriented to person, oriented to place, oriented to time and patient oriented x3 Cranial nerves: Yes Equal, round and reactive pupils present and Yes Normal hearing present Cognition (Neuro): normal cognition Speech: normal speech Motor exam (neuro): 5/5 motor strength present throughout Sensory Exam: normal sensation Extrem: General: normal to inspection, no calf tenderness, edema bilateral and pedal edema bilaterally pitting and 2+ Right upper extremity: normal to inspection and shoulder/upper arm Left upper extremity: normal to inspection and shoulder/upper arm Other: Pretibial edema 2+ pitting edema Psych: Appearance: grossly normal Mental Status: mental status grossly normal Speech and movement: Normal speech and movement present Affect: normal affect Attitude: cooperative Thought process: Normal thought process present Insight: Good insight present (Psych) Judgement: Good j udgement present (Psych) Objective Data Vital Signs Vital Signs: Vital Signs - 24 hr 12/04/24 17:49 12/04/24 18:05 12/04/24 20:49 Temperature 98.8 F Pulse Rate 102 H 107 H 104 H Respiratory Rate 22 H 20 20 Blood Pressure 160/98 H Pulse Oximetry 91 83 L Oxygen Delivery Room Air Room Air Oxygen Flow Rate Fraction of Inspired Oxygen 12/04/24 23:06 12/04/24 23:25 12/04/24 23:38 Temperature 99.1 F Pulse Rate 106 H 106 H Respiratory Rate 18 Blood Pressure 162/93 H Pulse Oximetry 94 94 Oxygen Delivery Nasal Cannula Oxygen Flow Rate 5 Fraction of Inspired Oxygen 12/05/24 00:00 12/05/24 02:07 12/05/24 02:07 Temperature Pulse Rate 102 H 95 94 Respiratory Rate 14 14 Blood Pressure Pulse Oximetry 90 Oxygen Delivery Nasal Cannula Oxygen Flow Rate 5 Fraction of Inspired Oxygen 12/05/24 02:26 12/05/24 04:00 12/05/24 04:00 Temperature 98.4 F Pulse Rate 95 96 91 Respiratory Rate 14 18 Blood Pressure 152/82 H Pulse Oximetry 91 92 Oxygen Delivery Nasal Cannula Oxygen Flow Rate 6 Fraction of Inspired Oxygen 12/05/24 06:56 12/05/24 07:01 12/05/24 07:06 Temperature 98.4 F Pulse Rate 94 94 92 Respiratory Rate 18 16 18 Blood Pressure 147/77 H Pulse Oximetry 91 Oxygen Delivery Oxygen Flow Rate Fraction of Inspired Oxygen 12/05/24 08:00 12/05/24 08:00 12/05/24 08:26 Temperature 98.3 F Pulse Rate 102 H 95 80 Respiratory Rate 18 Blood Pressure 136/74 Pulse Oximetry 93 Oxygen Delivery Oxygen Flow Rate Fraction of Inspired Oxygen 12/05/24 11:56 12/05/24 12:00 12/05/24 12:45 Temperature 97.3 F L Pulse Rate 82 92 Respiratory Rate 24 H 16 Blood Pressure 153/75 H Pulse Oximetry 92 93 90 Oxygen Delivery High Flow Nasal Cannula High Flow Nasal Cannula Oxygen Flow Rate 10 8 Fraction of Inspired Oxygen 12/05/24 13:00 12/05/24 13:07 12/05/24 13:17 Temperature 98.6 F Pulse Rate 97 90 Respiratory Rate 20 18 Blood Pressure 148/70 H Pulse Oximetry 91 92 Oxygen Delivery High Flow Nasal Cannula Oxygen Flow Rate 10 Fraction of Inspired Oxygen 12/05/24 14:33 12/05/24 14:58 12/05/24 15:07 Temperature Pulse Rate 103 H Respiratory Rate Blood Pressure Pulse Oximetry 94 94 Oxygen Delivery High Flow Therapy with Na High Flow Therapy with Na Oxygen Flow Rate 40 40 Fraction of Inspired Oxygen 90 90 12/05/24 16:00 12/05/24 17:27 Temperature Pulse Rate 84 103 H Respiratory Rate Blood Pressure Pulse Oximetry Oxygen Delivery Oxygen Flow Rate Fraction of Inspired Oxygen Intake/Output Intake/Output: Intake & Output 12/02/24 12/03/24 12/04/24 12/05/24 23:59 23:59 23:59 23:59 Intake Total 340 Output Total 400 Balance -60 Meds/Results Medications: Active Medications Generic Name Dose Route Start Last Admin Trade Name Freq PRN Reason Stop Dose Admin Acetaminophen 500 mg 12/04/24 22:34 Acetaminophen 500 Mg Tablet PO Q6H PRN Mild Pain (1-3) or Fever Hydrocodone Bitart/Acetaminophen 1 tab 12/05/24 13:34 12/05/24 14:44 Hydrocodone/Acetaminophen (*Crx) 5-325 Mg Tablet PO 1 tab Q4H PRN Administration Pain Rated 4-6 Albuterol/Ipratropium 3 ml 12/05/24 02:00 12/05/24 13:15 Ipratropium 0.5 Mg/Albuterol Sulfate 2.5 Mg Ampul.Neb 3 Ml INHALATION 3 ml Q6HRT BRAULIO Administration Amlodipine Besylate 10 mg 12/04/24 22:40 12/04/24 23:05 Amlodipine Besylate 10 Mg Tablet PO 10 mg HS BRAULIO Administration Heparin Sodium (Porcine) 10,000 units 12/05/24 13:33 Heparin Sodium 5,000 Units/Ml Vial IV PUSH PRN PRN aPTT less than 55 seconds Heparin Sodium (Porcine) 5,000 units 12/05/24 13:33 Heparin Sodium 5,000 Units/Ml Vial IV PUSH PRN PRN aPTT 55 - 70 seconds Hydromorphone HCl 1 mg 12/04/24 22:35 12/05/24 16:44 Hydromorphone Hcl Inj (*Crx) 1 Mg/Ml Syr IV PUSH 1 mg Q3H PRN Administration Pain Rated 7-10 Ceftriaxone Sodium 1 gm/ 50 mls @ 100 mls/hr 12/05/24 22:00 Sodium Chloride IVPB Q24H BRAULIO Doxycycline Hyclate 100 mg/ 100 mls @ 100 mls/hr 12/05/24 06:00 12/05/24 17:33 Sodium Chloride IVPB 12/09/24 18:59 100 mls/hr Q12H BRAULIO Administration Heparin Sodium/Dextrose 25,000 units in 250 mls @ 15 mls/hr 12/05/24 13:35 12/05/24 14:31 Heparin Sodium/D5w 100 Units/Ml IV CONT 1,500 units/hr .[id number] BRAULIO 15 mls/hr Protocol Administration 1,500 UNITS/HR Labetalol HCl 100 mg 12/04/24 22:40 12/05/24 17:27 Labetalol Hcl 100 Mg Tablet PO 100 mg BID BRAULIO Administration Lisinopril 40 mg 12/05/24 09:00 12/05/24 08:27 Lisinopril 20 Mg Tablet PO 40 mg DAILY BRAULIO Administration Rivaroxaban 20 mg 12/25/24 17:00 Rivaroxaban 20 Mg Tablet PO DAILY@1700 BRAULIO Triamterene/Hydrochlorothiazide 1 tab 12/05/24 09:00 12/05/24 08:26 Triamterene 37.5 Mg/Hctz 25 Mg (Maxzide) Tablet PO 1 tab DAILY BRAULIO Administration Radiology Results: ITS Impressions Chest X-Ray 12/04/24 18:57 IMPRESSION: 1. Increasing opacities in the bilateral lower lung zones consistent with pulmonary edema or pneumonia. Chest/Abdomen/Pelvis CTA 12/04/24 19:35 IMPRESSION: 1. Pulmonary emboli involving multiple basilar segmental and subsegmental pulmonary arteries in the bilateral lower lobes and possibly also in the right upper lobar and posterior segmental pulmonary arteries. No findings of right heart strain. 2. Increasing airspace disease in the bilateral lower lobes, right greater than left and in the posterior right upper lobe suspicious for pulmonary infarcts with differential including pneumonia, atelectasis or some combination thereof. 3. No acute intra-abdominal/pelvic process. 4. Diffuse hepatic steatosis. Venous Doppler Study 12/05/24 08:31 Impression: Left-sided DVT. Labs Labs: Laboratory Results - last 24 hr 12/04/24 12/04/24 12/04/24 18:12 18:17 18:35 WBC 17.9 H RBC 5.55 Hgb 18.6 H Hct 52.6 H MCV 94.8 MCH 33.5 MCHC 35.4 RDW 14.3 Plt Count 208 MPV 8.5 Immature Gran % (Auto) 0.3 Neut % (Auto) 75.2 H Lymph % (Auto) 13.8 L [place] % (Auto) 9.3 H Eos % (Auto) 1.1 Baso % (Auto) 0.3 Lymph # (Auto) 2.47 [place] # (Auto) 1.7 H Eos # (Auto) 0.2 Baso # (Auto) 0.1 Abs Immat Gran (auto) 0.06 H Absolute Neuts (auto) 13.4 H Absolute Nucleated RBC 0.000 Nucleated RBC % 0.0 PT 17.8 H INR 1.5 APTT 35.9 Puncture Site Right radial ABG pH 7.462 H ABG pCO2 33.2 L ABG pO2 80.5 ABG PO2/FiO2 Ratio 2.01 ABG HCO3 23.2 ABG O2 Saturation 96.5 ABG O2 Content 26.0 H ABG Base Excess 0.4 A-a Gradient 166.5 Oxyhemoglobin 93.6 Total Hemoglobin 19.8 H O2 Delivery Device Nasal cannula O2 Liters/Min 5.0 FiO2 40 Sodium 136 L Potassium 4.0 Chloride 104 Carbon Dioxide 24 Anion Gap 8 BUN 10 Creatinine 0.90 Estim Creat Clear Calc 173 Estimated GFR > 60 Glucose 126 H Calcium 8.8 Total Bilirubin 1.4 H AST 42 ALT 37 Alkaline Phosphatase 98 Troponin I < 0.012 NT-Pro-B Natriuret Pep 25 Total Protein 9.1 H Albumin 4.6 Lipase 78 Urine Color Urine Appearance Urine pH Ur Specific [place] Urine Protein Urine Glucose (UA) Urine Ketones Ur Blood (Man) Urine Nitrate Urine Bilirubin Urine Urobilinogen Leukocyte Esterase Rfl Urine RBC Urine WBC Ur Squamous Epith Cells Urine Bacteria Urine Casts Influenza A (RT-PCR) Negative Influenza B (RT-PCR) Negative RSV (RT-PCR) Negative SARS-CoV-2 RNA (RT-PCR) Negative 12/04/24 12/05/24 12/05/24 20:12 03:55 11:21 WBC 18.8 H RBC 5.23 Hgb 17.8 Hct 51.2 MCV 97.9 MCH 34.0 MCHC 34.8 RDW 14.6 H Plt Count 198 MPV 8.7 Immature Gran % (Auto) 0.5 Neut % (Auto) 77.3 H Lymph % (Auto) 10.1 L [place] % (Auto) 11.4 H Eos % (Auto) 0.4 Baso % (Auto) 0.3 Lymph # (Auto) 1.89 [place] # (Auto) 2.1 H Eos # (Auto) 0.1 Baso # (Auto) 0.1 Abs Immat Gran (auto) 0.09 H Absolute Neuts (auto) 14.5 H Absolute Nucleated RBC 0.000 Nucleated RBC % 0.0 PT INR APTT Puncture Site ABG pH ABG pCO2 ABG pO2 ABG PO2/FiO2 Ratio ABG HCO3 ABG O2 Saturation ABG O2 Content ABG Base Excess A-a Gradient Oxyhemoglobin Total Hemoglobin O2 Delivery Device O2 Liters/Min FiO2 Sodium 135 L Potassium 4.2 Chloride 100 Carbon Dioxide 26 Anion Gap 9 BUN 12 Creatinine 1.20 Estim Creat Clear Calc 132 Estimated GFR > 60 Glucose 127 H Calcium 8.4 Total Bilirubin AST ALT Alkaline Phosphatase Troponin I < 0.012 NT-Pro-B Natriuret Pep Total Protein Albumin Lipase Urine Color Yellow Urine Appearance Clear Urine pH 5.5 Ur Specific [place] 1.017 Urine Protein 1+ H Urine Glucose (UA) Negative Urine Ketones Negative Ur Blood (Man) Trace Urine Nitrate Negative Urine Bilirubin Negative Urine Urobilinogen 1.0 Leukocyte Esterase Rfl Negative Urine RBC 0-2 Urine WBC 0-5 Ur Squamous Epith Cells None seen Urine Bacteria None seen Urine Casts 0-2 Influenza A (RT-PCR) Influenza B (RT-PCR) RSV (RT-PCR) SARS-CoV-2 RNA (RT-PCR) 12/05/24 12/05/24 11:34 16:52 WBC 18.2 H RBC 4.98 Hgb 17.1 Hct 48.2 MCV 96.8 MCH 34.3 H MCHC 35.5 RDW 14.4 Plt Count 185 MPV 8.5 Immature Gran % (Auto) 0.4 Neut % (Auto) 76.8 H Lymph % (Auto) 11.2 L [place] % (Auto) 10.8 H Eos % (Auto) 0.5 Baso % (Auto) 0.3 Lymph # (Auto) 2.04 [place] # (Auto) 2.0 H Eos # (Auto) 0.1 Baso # (Auto) 0.1 Abs Immat Gran (auto) 0.08 H Absolute Neuts (auto) 13.9 H Absolute Nucleated RBC 0.000 Nucleated RBC % 0.0 PT 22.7 H D INR 2.1 APTT 45.8 H Puncture Site Right radial ABG pH 7.399 ABG pCO2 42.7 ABG pO2 57.2 L ABG PO2/FiO2 Ratio 1.30 ABG HCO3 25.8 ABG O2 Saturation 89.7 L ABG O2 Content 22.8 H ABG Base Excess 0.7 A-a Gradient 207.8 Oxyhemoglobin 86.9 L* Total Hemoglobin 18.7 H O2 Delivery Device Nasal cannula O2 Liters/Min 6.0 FiO2 44 Sodium Potassium Chloride Carbon Dioxide Anion Gap BUN Creatinine Estim Creat Clear Calc Estimated GFR Glucose Calcium Total Bilirubin AST ALT Alkaline Phosphatase Troponin I Cancelled NT-Pro-B Natriuret Pep Total Protein Albumin Lipase Urine Color Urine Appearance Urine pH Ur Specific [place] Urine Protein Urine Glucose (UA) Urine Ketones Ur Blood (Man) Urine Nitrate Urine Bilirubin Urine Urobilinogen Leukocyte Esterase Rfl Urine RBC Urine WBC Ur Squamous Epith Cells Urine Bacteria Urine Casts Influenza A (RT-PCR) Influenza B (RT-PCR) RSV (RT-PCR) SARS-CoV-2 RNA (RT-PCR) Quality VTE Prophylaxis VTE prophylaxis: pharmacologic ordered
[2024-12-05 17:42] LABS: NT Pro B Type Natriuretic Pept < 20 pg/mL (19.9-100)
[2024-12-05 17:44] LABS: Troponin I < 0.012 ng/mL (0.000-0.034)
[2024-12-05 17:46] LABS: CRP 23.0 mg/dL (<1.0)
[2024-12-05 17:48] LABS: Procalcitonin 0.3 ng/mL
[2024-12-05 21:34] LABS: Partial Thromboplastin Time 43.8 Seconds (22.3-36.8)
[2024-12-05] MEDS: cefTRIAXone 1 GM in SODIUM CHLORIDE 0.9% IV 50 ML 100 ML IVPB (21:48)
--- NOTE | 2024-12-05 22:58 | PCRCNOTE ---
Patient attempted cpap with a full face mask and was unable to tolerate it. He stated with everything going on he felt like he could not get a decent breath. RT decreased cpap pressure when patient stated it was too high. After a few short moments, patient asked for mask to be removed. Pt resting comfortably on airvo 40L 80%
[2024-12-05] MEDS: HYDROmorphone HCL INJ (*CRX) 1 MG/ML SYR 2 MG IV PUSH (23:29)
[2024-12-06] VITALS (31 sets, daily range): BP systolic 115–144; BP diastolic 60–79; PULSE 91–119; RESP 20–26; TEMP 36.7–38.3; O2SAT 87–99
[2024-12-06] MEDS: HYDROcodone/acetaminophen (*CRX) 7.5-325 MG TABLET 1 TAB PO ×4 (01:27→17:57)
[2024-12-06] MEDS: IPRATROPIUM 0.5 MG/ALBUTEROL SULFATE 2.5 MG AMPUL.NEB 3 ML INHALATION ×5 (02:18→20:37)
[2024-12-06] MEDS: HYDROmorphone HCL INJ (*CRX) 1 MG/ML SYR 2 MG IV PUSH ×5 (02:45→23:47)
[2024-12-06 04:13] LABS: Hematocrit 47.0 % (42.0-52.0); Hemoglobin 16.4 g/dL (14.0-18.0); Immature Granulocyte Percent A 0.4 % (0-0.5); Lymphocytes Absolute Auto 1.94 K/mm3 (0.9-3.2); Mean Corpuscular HGB Conc 34.9 g/dl (32-36); Mean Corpuscular Hemoglobin 33.7 pg (26-34); Mean Corpuscular Volume 96.5 fl (80-100); Nucleated Red Blood Cells Absolute Auto 0.000 K/mm3 (0.0-0.012); Nucleated Red Blood Cells Perc 0.0 % (0.0-0.2); Platelet Count Result 198 k/mm3 (150-375); Red Blood Count 4.87 M/mm3 (4.6-6.20); White Blood Count 18.6 K/mm3 (4.5-10.0)
[2024-12-06 04:25] LABS: Partial Thromboplastin Time 55.3 Seconds (22.3-36.8)
[2024-12-06 04:31] LABS: Alanine Aminotransferase 36 U/L (6-50); Albumin Level 3.9 g/dL (3.5-5.1); Alkaline Phosphatase 82 U/L (38-126); Anion Gap 10 mmol/L (4-12); Aspartate Amino Transferase 46 U/L (17-59); Bilirubin,Total 1.8 mg/dL (0.2-1.3); Blood Urea Nitrogen 20 mg/dL (9-20); Calcium 8.6 mg/dL (8.4-10.2); Carbon Dioxide 24 mmol/L (22-30); Chloride 100 mmol/L (98-107); Estimated CRCL calculation 115 ml/min; Estimated Glomerular Filt Rate 57; Glucose 133 mg/dL (65-110); Magnesium 2.0 mg/dL (1.6-2.3); Potassium 4.0 mmol/L (3.4-5.0); Sodium 134 mmol/L (137-145); Total Protein 7.8 g/dL (6.3-8.2)
[2024-12-06] MEDS: HEPARIN SOD/D5W 100 UNITS/ML 25,000 UNITS/250 ML BAG 23 UNITS IV CONT (04:56)
[2024-12-06] MEDS: DOXYCYCLINE IV 100 MG in SODIUM CHLORIDE 0.9% IV 100 ML IVPB ×2 (05:00→20:22)
[2024-12-06] MEDS: TRIAMTERENE 37.5 MG/HCTZ 25 MG (MAXZIDE) TABLET 1 TAB PO (08:24)
[2024-12-06] MEDS: LABETALOL HCL 100 MG TABLET PO ×2 (08:24→20:32)
--- NOTE | 2024-12-06 08:39 | P.PNPL_ITS ---
Progress Note: A&P Assessment and Plan (1) Pulmonary embolus: Code(s): I26.99 - Other pulmonary embolism without acute cor pulmonale Status: Acute Assessment and Plan: Patient with a history of unprovoked PE in 10/16/2019 treated with Xarelto for [address] angiogram was negative. Hypercoagulable workup by Hematology was negative. Patient presents now with acute bilateral PE and left popliteal and posterior tibial DVT. Patient is a tobacco user, he has psoriasis on Skyrizi, he is a tobacco user and has elevated hemoglobin at 51.2, he had a left ankle fracture on 08/29/2024 and continued meniscus knee pain limiting his mobility although he does tell me he walks 3000 steps a day. He has had no long plane rides. The patient tells me that his mother from a PE in her 30s and his mother's sisters daughter of a PE in her 50s. On 12/05/2024 patient had worsening oxygenation up to 10 L nasal cannula with saturations 89-92 and was changed to Airvo 40 L 91% FiO2 with saturations 96%. The patient tells me today his pain is better wears it was 10/10 and now it is 9/10. He says he is breathing 15% back to his normal with no phlegm or hemoptysis. I decreased him to Airvo 40 L 82% and his saturations were 93%. Lower extremity Dopplers demonstrated left popliteal and posterior tibial thrombus. Echocardiogram demonstrated LVEF 65-70, normal diastolic function, normal right ventricular size and function, normal right atrial size, there was no tricuspid regurg and no RVSP was calculated. Repeat troponin was negative. Patient had an ABG on 5 L nasal cannula with pH of 7.46/33/81. His role to was discontinued he was placed on IV heparin. Plan: patient tells me he is feeling better today. Patient is hemodynamically stable, troponin is negative x2, BNP is 25, no evidence of RV strain on a CT angiogram or his echocardiogram. Agree with IV heparin at this time given his worsening oxygenation he may require procedures in the future and will make sure he can tolerate anticoagulation at this time. Patient may have a genetic component to his PE-DVT and I will complete hypercoagulable workup with anticardiolipin IgG and IgM, beta 2 glycoprotein IgG, factor 9 activity, factor 8 activity, factor 10 activity, MTHFR mutation. Patient has worsening hypoxia which may be related to his PE and or pneumonia. Currently he is requiring Airvo 40 L 82% with saturations 93%. 12/06/2024: Overall the patient tells me he feels better. He states his breathing is 20% back to his normal. He still has sharp pleuritic chest pain graded as 9/10 worse with deep breathing and movement. He is making more clear phlegm today. He denies hemoptysis. He had a fever to 38.1 last night at 11:30 p.m. when I enter the room he was on high-flow 40 L 80% with saturations 93%. I decreased him to 40 L and 75% and after 11 minutes saturations were 91%. His white blood cell count is 18.6, his creatinine is 1.38, his PTT is 55.3. Yesterday was positive 286 mL. Plan: Slow clinical improvement. Continue with IV heparin. Fever may be related to DVT-PE and or pneumonia. Goal saturation greater than 90%, wean FiO2 as tolerated. Hypercoagulable workup sent. Pulmonary inpatient consultative services will resume on 12/09/2024. Call with questions. Discussed with Dr. Yeung (2) Pneumonia: Code(s): J18.9 - Pneumonia, unspecified organism Status: Acute Assessment and Plan: Patient presents with 3 day history of fatigue, worsening shortness of breath, 1 day worsening chills with sweats and pleuritic pain. His white blood cell count was 17.9, and a CT angiogram of the chest showed increased bibasilar infiltrates compared to 12/03/2024. Patient tells me that the DuoNebs to help him take deeper breaths. 12/05/24: Plan: Patient may have a pneumonia and agree with ceftriaxone and doxycycline at this time. His COVID, influenza, RSV RT PCR assay was negative. I will send a respiratory pathogen panel, urine for Legionella antigen, urine for pneumococcal antigen and serum mycoplasma IgM. Sputum culture has been ordered. Blood cultures are pending. I have ordered procalcitonin, CRP. Patient has no history of asthma or COPD but states that the DuoNebs help him take deeper breaths and will continue these Q 6 hours. 12/06/24: He had a fever to 38.1 last night at 11:30 p.m. when I enter the room he was on high-flow 40 L 80% with saturations 93%. I decreased him to 40 L and 75% and after 11 minutes saturations were 91%. His white blood cell count is 18.6, his creatinine is 1.38, Chest x-ray today with decreased lung volumes and increased bilateral mid and lower lung infiltrates. Plan: Patient is morbidly obese and laying in bed. Decreased lung volumes on chest x-ray today. I will add EzPAP q.i.d.. Patient states the nebulized treatments are helping him but once to administer them during the day and will change to q.4 hours while awake. Has some difficulty expectorating and will add guaifenesin 1200 p.o. b.i.d.. Respiratory pathogen panel, urine for Legionella antigen, urine for pneumococcal antigen and mycoplasma IgM all pending. Blood cultures pending. Sputum culture has been ordered (3) Hypoxic respiratory failure: Code(s): J96.91 - Respiratory failure, unspecified with hypoxia Status: Acute Assessment and Plan: 12/04/2024 ABG on 5 L nasal cannula 7.46/33/81. 12/05/2024 ABG on 6 L nasal cannula pH 7.40/43/57. There is no evidence of acute or chronic hypercarbic respiratory failure. 12/04 18:15 Room air, sats 91% then 83% required 5 L. 12/04 23:15 5 L NC, sats 94% 12/05 11:45 10 L NC, sats 92% 12/05 15:00 Airvo 40 L, 82%, sats 93% 12/05 20:00 Airvo 40 L, 83%, sats 92% 12/06 08:30 Aivo 40 L, 75%, sats 91 12/05/24: Patient has worsening hypoxia which may be related to his PE and or pneumonia. Currently he is requiring Airvo 40 L 82% with saturations 93%. 12/06/24: Minimal improvement in oxygenation over the last 24 hours. Goal saturation greater than 90%, wean FiO2 as tolerated. Will get out of bed to chair today, will start EzPAP treatment today. (4) Obstructive sleep apnea syndrome: Code(s): G47.33 - Obstructive sleep apnea (adult) (pediatric) Status: Acute Assessment and Plan: Regarding his obstructive sleep apnea patient tells me he had a home sleep study 4-5 years ago and was told he had severe obstructive sleep apnea was prescribed auto PAP 4-20 by his PCP. He ended up buying the machine from [employer] and now buys his supplies off of [employer]. He uses a nasal mask with and uses the machine every night with good clinical benefit. I have a download from 11/05/2024 through 12/04/2024 from [employer]. He is on AutoSet 4-20. Usage days greater than or equal to 4 hours is 97%. Average usage on days used is 7 hours and 3 minutes. AHI 0.3. Apnea index 0.2, hypopnea index 0.1, central apnea index 0.0. Median pressure is 11.4. Ninety-fifth percentile pressure is 14.0. Maximum pressure is 15.6. Median leak is 4.2. Ninety-fifth percentile leak is 27.2. Maximum leak is 46.5. I interpret this download as excellent compliance, adequate pressures and high leak. 12/05/24: Patient was ordered hospital auto PAP but this machine can only handle 6 L nasal cannula oxygen. I brought a V 60 machine to his room and placed him on CPAP 10 with 80% FiO2 and he said that this was too strong and I decreased him to CPAP 6 and he said that this felt comparable to his home machine. I then trialed the patient on AVAPS with a rate of 14, tidal volume 450, EPAP 4, minimal inspiratory pressure 5, maximal inspiratory pressure 25 and adjusted the flow rates to comfort with a rise of 5 and inspiratory time of 1.2 and he could not tolerate this mode. Plan: Tonight patient should wear V 60 with CPAP 6 and 70% FiO2. If he cannot tolerate this he can be returned to the Airvo. 12/06/24: Patient attempt to wear the hospital CPAP 6 with a fullface mask last night but could not tolerate this as the pressures were too much. Respiratory therapy decreased his CPAP but the patient still could not tolerate this. Plan: Eventually patient will be placed on his home AutoSet 4-20 once his oxygenation improves. (5) Tobacco abuse: Code(s): Z72.0 - Tobacco use Status: Acute Assessment and Plan: Patient smokes 1 pack per day from age 18 for total of 26 pack years. Patient does not check his saturations at home but does have erythrocytosis. Previous workup showed a negative JAK2 mutation. Current hemoglobin is 17.8 and hematocrit is 51.2. Of note, white blood cell count prior to this admission on 6 different occasions had ranged from 11.6 to 14.3 between 10/23/2018 and 12/27/2020. patient with a history of leukocytosis and his BCR-ABL translocation test was negative per Oncology on 01/13/2020. 12/05/24: plan: Will follow hematocrit. At this time do not feel he needs a phlebotomy. Smoking cessation counseling was provided. 12/06/24: Hemoglobin 16.4, hematocrit 47.0. Will follow. Subjective Date/time seen: 12/06/24 08:39 Interval history: 10/04/2024: This is a new pulmonary consult for pulmonary embolism and hypoxic respiratory failure 44-year-old man with a history of hypertension, psoriasis, PE on 10/16/2019, severe obstructive sleep apnea on home auto PAP 4-20. regarding patient's prior PE on 10/16/2019 this was an unprovoked PE in the right basilar lower lobe by CT angiogram. He was treated with Xarelto for 3 months. He was seen by Hematology who did a hypercoagulable workup all off of anticoagulation for 1 week which was negative. He has been off anticoagulation since 01/2020. Regarding his obstructive sleep apnea patient tells me he had a home sleep study 4-5 years ago and was told he had severe obstructive sleep apnea was prescribed auto PAP 4-20 by his PCP. He ended up buying the machine from [employer] and now buys his supplies off of [employer]. He uses a nasal mask with and uses the machine every night with good clinical benefit. I have a download from 11/05/2024 through 12/04/2024 from [employer]. He is on AutoSet 4-20. Usage days greater than or equal to 4 hours is 97%. Average usage on days used is 7 hours and 3 minutes. AHI 0.3. Apnea index 0.2, hypopnea index 0.1, central apnea index 0.0. Median pressure is 11.4. Ninety-fifth percentile pressure is 14.0. Maximum pressure is 15.6. Median leak is 4.2. Ninety-fifth percentile leak is 27.2. Maximum leak is 46.5. I interpret this download as excellent compliance, adequate pressures and high leak. On 08/29/2024 the patient fell and fractured his left ankle and tore his left meniscus. He was placed in a boot and the ankle healed but he still has continued knee pain. prior to this injury he would walk 40,000 steps. After this injury he was placed on light duty and is currently walking 3000 steps. On 11/27/2024 the patient noticed that his left leg was more swollen than usual. On 12/01/2024 the patient was watching football in his usual state of health. On 12/02/2024 the patient underwent physical therapy for his leg and said that he felt tired and had some dyspnea on exertion. He denied fever, chills, rigors, phlegm or hemoptysis. On 12/03 the patient had worsening shortness of breath and dyspnea on exertion, developed right-sided pleuritic chest pain and started producing a minimal amount of phlegm. he presented to the emergency room and denied shortness of breath. His blood pressure is 143/88, heart rate 91, respirations 17, saturations on 2 L were 96. White blood cell count was 13.7 creatinine was 0.8. He had a CT angiogram of the chest that had poor contrast timing and was indeterminate for PE. Patient was treated for PE and sent home on Xarelto 15 mg p.o. b.i.d. for 21 days then 20 q.day following. He was told to come back if his symptoms worsened. On 12/04/2024 the patient had sweats, chills, worse right-sided and now left- sided pain And presented to the emergency department. His blood pressure is 160/98, his heart rate 102, respirations 22, room air saturations were 91%. His white blood cell count was 17.9, his creatinine was 0.9, his BNP was 25, his troponin was negative, his COVID influenza RSV RT PCR assay were negative. CT angiogram of the chest abdomen and pelvis demonstrated multiple basilar segmental and subsegmental pulmonary arteries in the bilateral lower lobes and possibly also in the right upper lobar and posterior segmental pulmonary arteries. No findings of right heart strain. Increasing airspace disease in the bilateral lower lobes, right greater than left and in the posterior right upper lobe suspicious for pulmonary infarcts with differential including pneumonia, atelectasis or some combination thereof. patient was started on Xarelto 15 mg p.o. b.i.d., ceftriaxone, azithromycin and given 1 dose of Lasix. Patient was increased to 5 L nasal cannula at 11:15 p.m.. On 12/05/2024 patient had worsening oxygenation up to 10 L nasal cannula with saturations 89-92 and was changed to Airvo 40 L 91% FiO2 with saturations 96%. The patient tells me today his pain is better wears it was 10/10 and now it is 9/10. He says he is breathing 15% back to his normal with no phlegm or hemoptysis. I decreased him to Airvo 40 L 82% and his saturations were 93%. Lower extremity Dopplers demonstrated left popliteal and posterior tibial thrombus. Echocardiogram demonstrated LVEF 65-70, normal diastolic function, normal right ventricular size and function, normal right atrial size, there was no tricuspid regurg and no RVSP was calculated. Repeat troponin was negative. Patient had an ABG on 5 L nasal cannula with pH of 7.46/33/81. His role to was discontinued he was placed on IV heparin. 12/06/2024: Overall the patient tells me he feels better. He states his breathing is 20% back to his normal. He still has sharp pleuritic chest pain graded as 9/10 worse with deep breathing and movement. He is making more clear phlegm today. He denies hemoptysis. He had a fever to 38.1 last night at 11:30 p.m. when I enter the room he was on high-flow 40 L 80% with saturations 93%. I decreased him to 40 L and 75% and after 11 minutes saturations were 91%. His white blood cell count is 18.6, his creatinine is 1.38, his PTT is 55.3. Y esterday was positive 286 mL. Chest x-ray today with decreased lung volumes and increased bilateral mid and lower lung infiltrates. DATA: 12/05/24: Echo Summary 1. Definity contrast administered improved wall motion interpretation. 2. Left ventricular chamber dimension is normal. 3. Left ventricular systolic function is hyperdynamic, estimated at 65-70. 4. There is mild concentric increased left ventricular wall thickness. 5. The left ventricular diastolic function is normal. Right Ventricle Right ventricular chamber dimension is normal. Right ventricular systolic function is normal. Right Atria Right atrial chamber dimension is normal. No TR, no RVSP obtained 12/05/24: EXAMINATION: US venous doppler ISAAC MCHUGH, 12/05/2024 7:45 CDT HISTORY: pe and edema to legs COMPARISON: None Technique: Hartley-scale and color Doppler images were attempted of the lower saphenofemoral junction, common femoral vein,superficial femoral vein, proximal deep femoral vein, proximal deep femoral vein, popliteal vein and posterior tibial veins. Findings: Deep Venous System:There is a thrombus with diminished flow in the left popliteal and posterior tibial veins, the remaining visualized deep venous system is unremarkable Superficial Venous SystemNo superficial thrombophlebitis. Soft tissues: Soft tissues are unremarkable. Impression: Left-sided DVT. 12/04/24: EXAMINATION: CTA chest PE abdomen pel INDICATION: Shortness of breath COMPARISON: None FINDINGS: Chest: Again seen is suboptimal contrast opacification of the pulmonary arteries which limits evaluation some of the smaller subsegmental pulmonary arteries. There is nonetheless sufficient contrast to definitively identified pulmonary emboli in the several of the basilar segmental and subsegmental pulmonary arteries in the bilateral lower lobes. Decreased attenuation in the right upper lobar and posterior segmental pulmonary arteries is also suspicious for pulmonary embolism however there is some streak artifact from adjacent dense contrast in the superior vena cava which decreases specificity. Patchy consolidation and some surrounding groundglass opacities in the right lower lobe which along with a small peripheral small region of peripheral consolidation in the posterior segment right upper lobe with central groundglass opacity are suspicious for secondary pulmonary infarcts with differential including pneumonia. Consolidation at the basilar aspect of the lingula and bandlike opacity extens ion across the basilar left lower lobe with similar differential also including atelectasis. Tiny right pleural effusion. Heart size is normal. No leftward bowing of the ventricular septum to suggest right heart strain. No pericardial effusion. Thoracic aorta is normal in caliber with no dissection. No pathologically enlarged thoracic lymphadenopathy. Mild bilateral gynecomastia. Moderate lower thoracic spondylosis. Chronic appearing minimal to mild anterior wedging at T6-T12. Abdomen/pelvis: Diffuse hepatic steatosis with focal sparing along the gallbladder fossa. New small amount of likely vicariously excreted contrast related to CT study from one day prior which layers dependently in the otherwise normal gallbladder. Spleen, pancreas, bilateral adrenal glands and kidneys are normal. Bladder is normal. Bowels including the appendix are normal. No free intraperitoneal gas or fluid. No pathologically enlarged abdominal or pelvic lymphadenopathy. Moderate lumbosacral spondylosis with mild spondylosis more cephalad lumbar spine. IMPRESSION: 1. Pulmonary emboli involving multiple basilar segmental and subsegmental pulmonary arteries in the bilateral lower lobes and possibly also in the right upper lobar and posterior segmental pulmonary arteries. No findings of right heart strain. 2. Increasing airspace disease in the bilateral lower lobes, right greater than left and in the posterior right upper lobe suspicious for pulmonary infarcts with differential including pneumonia, atelectasis or some combination thereof. 3. No acute intra-abdominal/pelvic process. 4. Diffuse hepatic steatosis. 12/27/2020: EXAMINATION: CTA chest PE protocol DATE: 12/27/2020 14:39 INDICATION: Shortness of breath. Prior pulmonary embolus and. TECHNIQUE: Computed tomography (CT) pulmonary angiogram of the chest was performed with 200 mL Omnipaque-350 intravenous contrast. Additional 3D reconstructions utilizing coronal maximum intensity projection (MIP) were performed. Automated exposure control and iterative reconstruction technique were employed. The dose-length product was 1909.70 mGy-cm. COMPARISON: 10/30/2020 FINDINGS: Suboptimal contrast opacification of the pulmonary arteries on both initial and repeat imaging. There is mild streak artifact from dense contrast in the superior vena cava and right atrium. Moderate to severe scattered respiratory motion artifact most prominent in the lower lung zones renders assessment in the subsegmental pulmonary arteries is essentially nondiagnostic. Mild decreased sensitivity in the segmental pulmonary arteries, moderately decreased sensitivity in the smaller subsegmental pulmonary arteries in the mid and upper lung zones. No pulmonary embolism. Small right pleural effusion. There is consolidation in the right lower lobe with significant corresponding volume loss and favor atelectasis over pneumonia. Additional smaller regions of consolidation similarly more likely atelectasis than pneumonia in the left lower lobe, lingula and mild discoid atelectasis in the right middle lobe along the minor fissure. Heart size is normal. No pericardial effusion. Thoracic aorta is normal in caliber with no dissection. No pathologically enlarged thoracic lymphadenopathy. Diffuse hepatic steatosis. Mild anterior wedging of a few lower thoracic vertebral bodies. Mild thoracic spondylosis. IMPRESSION: 1. No evident pulmonary embolism. Evaluation is however significantly limited by suboptimal contrast opacification of the pulmonary arteries and prominent motion artifact. 2. Regions of consolidation in the bilateral lower lungs most prominent in the right lower lobar there is corresponding volume loss and favor atelectasis over pneumonia. 3. Small right pleural effusion. 4. Diffuse hepatic steatosis. 01/23/2020 EXAMINATION: CTA chest PE protocol EXAM DATE: 01/23/2020 15:00 INDICATION: Fatigue. Pulmonary embolus in follow-up. TECHNIQUE: Spiral CTA of the chest (pulmonary arteries) was performed with 200 cc Omnipaque 350 intravenous contrast injection. (Patient was injected twice due to poor pulmonary arterial opacification on 1st scan) Images were acquired during the pulmonary arterial phase. Coronal maximum intensity projection 3D- reconstructions were created by the technologist on dedicated workstation. Axial, coronal and sagittal reformatted images were reviewed. The dose-length product (DLP) for this examination was 2166.15 mGy-cm. The exposure was tailored according to patient size (auto mA exposure control), and iterative reconstruction (ASIR) was used as additional dose reduction technique. Comparison is made to prior examination from 10/16/2019. FINDINGS: There are no pulmonary emboli in the 1st through 3rd order (central and interlobar) pulmonary arteries. Some loss of attenuation in the segmental pulmonary arteries due to respiratory motion, but no intraluminal filling defects suspected. No thoracic aortic dissection. Subsegmental right basilar atelectasis. There are no pleural or pericardial effusions. Tracheobronchial tree is patent. There is no mediastinal, hilar or axillary lymphadenopathy. There is no pneumothorax. Heart normal in size. There is mild coronary arterial calcification, arterial sclerosis. There is hepatic steatosis. There is thoracic spondylosis without osteoblastic or osteolytic lesions identified. Compared to prior study, can't identify the suspected right lower lobe segmental segment. Previously seen small right pleural effusion has resolved, with improvement in the right basilar dependent atelectasis. IMPRESSION: 1. Probable resolution of previously seen segmental pulmonary embolism. 2. Right basilar subsegmental atelectasis. 11/02/2018: EXAMINATION: CTA CHEST (PULMONARY ART) DATE: 11/02/2018 16:49 INDICATION: Hemoptysis. COMPARISON: Chest 2 views 11/02/2018 FINDINGS: The lungs demonstrate minimal atelectasis. No pleural effusion. The heart size is normal. There are coronary artery calcifications. No pericardial effusion. The main pulmonary artery is enlarged, consistent with pulmonary arterial hypertension. There is no pulmonary embolus. There is mild thoracic spo ndylosis. There is mild chronic anterior wedging of multiple lower thoracic vertebral bodies. IMPRESSION: 1. No pulmonary embolus. 2. Enlargement main pulmonary artery, consistent with pulmonary arterial hypertension. Review of Systems Constitutional: Constitutional: Reports no additional constitutional complaints Eyes: Eyes: Reports no additional eye complaints ENT: Reports system reviewed and no additional complaints, except as documented Cardiovascular: Cardiovascular: Reports no additional cardiovascular complaints Respiratory: Respiratory: Reports no additional respiratory complaints Gastrointestinal: Gastrointestinal: Reports no additional gastrointestinal complaints Musculoskeletal: Musculoskeletal: Reports no additional musculoskeletal complaints Neurologic: Reports system reviewed and no additional complaints, except as documented Psychiatric: Psychiatric: Reports no additional psychiatric complaints Endocrine: Endocrine: Reports no additional endocrine complaints Hematologic/Lymphatic: Hematologic/Lymphatic: Reports no additional hematologic/lymphatic complaints Allergic/Immunologic: Allergic/Immunologic: Reports no additional allergic/immunologic complaints Exam Const: General: cooperative, comfortable and no acute distress Orientation/consciousness: oriented to person, oriented to place and oriented to time Other: obese HENMT: Head: normal to inspection Ears: hearing grossly normal bilaterally Eyes: General: appearance normal, both eyes and all related structures Neck: Neck: normal visual inspection Chest: Chest palpation & inspection: normal inspection of the chest Resp: Effort & Inspection: normal respiratory effort and able to speak in complete sentences Auscultation: no crackles, no rales, no rhonchi, no wheezes and diminished lung sounds Other: obese Cardio: Jugular venous distension: no JVD GI: Inspection: normal to inspection Skin: General skin exam: normal color Neuro: General: oriented to person, oriented to place and oriented to time Extrem: General: normal to inspection Other: Left lower extremity swelling greater than right. Psych: Appearance: grossly normal Objective Data Vital Signs Vital Signs: Vital Signs - 24 hr 12/05/24 11:56 12/05/24 12:00 12/05/24 12:45 Temperature 36.3 C L Pulse Rate 82 92 Respiratory Rate 24 H 16 Blood Pressure 153/75 H Pulse Oximetry 92 93 90 Oxygen Delivery High Flow Nasal Cannula High Flow Nasal Cannula Oxygen Flow Rate 10 8 Fraction of Inspired Oxygen 12/05/24 13:00 12/05/24 13:07 12/05/24 13:17 Temperature 37.0 C Pulse Rate 97 90 Respiratory Rate 20 18 Blood Pressure 148/70 H Pulse Oximetry 91 92 Oxygen Delivery High Flow Nasal Cannula Oxygen Flow Rate 10 Fraction of Inspired Oxygen 12/05/24 14:33 12/05/24 14:58 12/05/24 15:07 Temperature Pulse Rate 103 H Respiratory Rate Blood Pressure Pulse Oximetry 94 94 Oxygen Delivery High Flow Therapy with Na High Flow Therapy with Na Oxygen Flow Rate 40 40 Fraction of Inspired Oxygen 90 90 12/05/24 16:00 12/05/24 16:00 12/05/24 17:27 Temperature 37.4 C Pulse Rate 84 97 103 H Respiratory Rate 16 Blood Pressure 135/75 Pulse Oximetry 96 Oxygen Delivery Oxygen Flow Rate Fraction of Inspired Oxygen 12/05/24 18:00 12/05/24 19:58 12/05/24 20:00 Temperature 37.0 C Pulse Rate 99 101 H 99 Respiratory Rate 22 H 22 H Blood Pressure 126/65 Pulse Oximetry 91 92 Oxygen Delivery High Flow Therapy with Na Oxygen Flow Rate 40 Fraction of Inspired Oxygen 80 12/05/24 20:00 12/05/24 20:46 12/05/24 20:56 Temperature Pulse Rate 99 102 H 102 H Respiratory Rate 20 Blood Pressure Pulse Oximetry 92 Oxygen Delivery High Flow Therapy with Na Oxygen Flow Rate 40 Fraction of Inspired Oxygen 83 12/05/24 21:16 12/05/24 22:00 12/05/24 22:55 Temperature Pulse Rate 98 112 H 105 H Respiratory Rate 20 24 H Blood Pressure Pulse Oximetry 95 Oxygen Delivery CPAP Oxygen Flow Rate Fraction of Inspired Oxygen 12/05/24 23:30 12/06/24 00:00 12/06/24 00:00 Temperature 38.1 C H Pulse Rate 101 H 101 H 104 H Respiratory Rate 22 H 22 H Blood Pressure 138/69 Pulse Oximetry 92 93 Oxygen Delivery High Flow Therapy with Na Oxygen Flow Rate 40 Fraction of Inspired Oxygen 80 12/06/24 02:00 12/06/24 02:17 12/06/24 02:18 Temperature Pulse Rate 107 H 104 H 111 H Respiratory Rate 20 Blood Pressure Pulse Oximetry 92 Oxygen Delivery High Flow Therapy with Na Oxygen Flow Rate 40 Fraction of Inspired Oxygen 80 12/06/24 02:24 12/06/24 04:00 12/06/24 04:00 Temperature Pulse Rate 104 H 101 H 101 H Respiratory Rate 20 22 H Blood Pressure Pulse Oximetry 93 Oxygen Delivery High Flow Therapy with Na Oxygen Flow Rate 40 Fraction of Inspired Oxygen 80 12/06/24 04:07 12/06/24 06:00 12/06/24 07:33 Temperature 36.7 C Pulse Rate 91 100 102 H Respiratory Rate 22 H 20 Blood Pressure 126/63 Pulse Oximetry 99 Oxygen Delivery Oxygen Flow Rate Fraction of Inspired Oxygen 12/06/24 07:58 12/06/24 08:24 Temperature 37.4 C Pulse Rate 101 H 107 H Respiratory Rate 20 Blood Pressure 144/66 H Pulse Oximetry 92 Oxygen Delivery Oxygen Flow Rate Fraction of Inspired Oxygen Intake/Output Intake/Output: Intake & Output 12/03/24 12/04/24 12/05/24 12/06/24 23:59 23:59 23:59 23:59 Intake Total 1086.5 1803.5 Output Total 800 1050 Balance 286.5 753.5 Meds/Results Medications: Active Medications Generic Name Dose Route Start Last Admin Trade Name Freq PRN Reason Stop Dose Admin Acetaminophen 500 mg 12/04/24 22:34 Acetaminophen 500 Mg Tablet PO Q6H PRN Mild Pain (1-3) or Fever Hydrocodone Bitart/Acetaminophen 1 tab 12/05/24 23:16 12/06/24 08:32 Hydrocodone/Acetaminophen (*Crx) 7.5-325 Mg Tablet PO 1 tab Q4H PRN Administration Pain Rated 4-6 Albuterol/Ipratropium 3 ml 12/05/24 02:00 12/06/24 07:33 Ipratropium 0.5 Mg/Albuterol Sulfate 2.5 Mg Ampul.Neb 3 Ml INHALATION 3 ml Q6HRT BRAULIO Administration Amlodipine Besylate 10 mg 12/04/24 22:40 12/05/24 20:20 Amlodipine Besylate 10 Mg Tablet PO 10 mg HS BRAULIO Administration Heparin Sodium (Porcine) 10,000 units 12/05/24 13:33 12/05/24 21:47 Heparin Sodium 5,000 Units/Ml Vial IV PUSH 10,000 units PRN PRN Administration aPTT less than 55 seconds Heparin Sodium (Porcine) 5,000 units 12/05/24 13:33 12/06/24 04:56 Heparin Sodium 5,000 Units/Ml Vial IV PUSH 5,000 units PRN PRN Administration aPTT 55 - 70 seconds Hydromorphone HCl 2 mg 12/05/24 23:17 12/06/24 07:02 Hydromorphone Hcl Inj (*Crx) 1 Mg/Ml Syr IV PUSH 2 mg Q3H PRN Administration Pain Rated 7-10 Ceftriaxone Sodium 1 gm/ 50 mls @ 100 mls/hr 12/05/24 22:00 12/05/24 22:20 Sodium Chloride IVPB Infused Q24H BRAULIO Infusion Doxycycline Hyclate 100 mg/ 100 mls @ 100 mls/hr 12/05/24 06:00 12/06/24 06:05 Sodium Chloride IVPB 12/09/24 18:59 Infused Q12H BRAULIO Infusion Heparin Sodium/Dextrose 25,000 units in 250 mls @ 23 mls/hr 12/05/24 13:35 12/06/24 06:20 Heparin Sodium/D5w 100 Units/Ml IV CONT Not Given .[id number] [facility] Protocol 2,300 UNITS/HR Labetalol HCl 100 mg 12/04/24 22:40 12/06/24 08:24 Labetalol Hcl 100 Mg Tablet PO 100 mg BID BRAULIO Administration Lisinopril 40 mg 12/05/24 09:00 12/06/24 08:24 Lisinopril 20 Mg Tablet PO 40 mg DAILY BRAULIO Administration Rivaroxaban 20 mg 12/25/24 17:00 Rivaroxaban 20 Mg Tablet PO DAILY@1700 [facility] Triamterene/Hydrochlorothiazide 1 tab 12/05/24 09:00 12/06/24 08:24 Triamterene 37.5 Mg/Hctz 25 Mg (Maxzide) Tablet PO 1 tab DAILY [facility] Administration Radiology Results: ITS Impressions Chest/Abdomen/Pelvis CTA 12/04/24 19:35 IMPRESSION: 1. Pulmonary emboli involving multiple basilar segmental and subsegmental pulmonary arteries in the bilateral lower lobes and possibly also in the right upper lobar and posterior segmental pulmonary arteries. No findings of right heart strain. 2. Increasing airspace disease in the bilateral lower lobes, right greater than left and in the posterior right upper lobe suspicious for pulmonary infarcts with differential including pneumonia, atelectasis or some combination thereof. 3. No acute intra-abdominal/pelvic process. 4. Diffuse hepatic steatosis. Venous Doppler Study 12/05/24 08:31 Impression: Left-sided DVT. Chest X-Ray 12/06/24 07:44 IMPRESSION: 1. Increasing opacities in bilateral mid and lower lung zones consistent with atelectasis, pneumonia and/or pulmonary infarcts likely superimposed over small bilateral pleural effusions. Labs Labs: Laboratory Results - last 24 hr 12/05/24 12/05/24 12/05/24 11:21 11:34 16:18 WBC RBC Hgb Hct MCV MCH MCHC RDW Plt Count MPV Immature Gran % (Auto) Neut % (Auto) Lymph % (Auto) [place] % (Auto) Eos % (Auto) Baso % (Auto) Lymph # (Auto) [place] # (Auto) Eos # (Auto) Baso # (Auto) Abs Immat Gran (auto) Absolute Neuts (auto) Absolute Nucleated RBC Nucleated RBC % PT INR APTT Puncture Site Right radial ABG pH 7.399 ABG pCO2 42.7 ABG pO2 57.2 L ABG PO2/FiO2 Ratio 1.30 ABG HCO3 25.8 ABG O2 Saturation 89.7 L ABG O2 Content 22.8 H ABG Base Excess 0.7 A-a Gradient 207.8 Oxyhemoglobin 86.9 L* Total Hemoglobin 18.7 H O2 Delivery Device Nasal cannula O2 Liters/Min 6.0 FiO2 44 Sodium Potassium Chloride Carbon Dioxide Anion Gap BUN Creatinine Estim Creat Clear Calc Estimated GFR Glucose Lactic Acid Calcium Magnesium Total Bilirubin AST ALT Alkaline Phosphatase Troponin I < 0.012 C-Reactive Protein NT-Pro-B Natriuret Pep Total Protein Albumin Procalcitonin Urine Pneumococcal Ag Cancelled 12/05/24 12/05/24 12/05/24 16:52 16:52 21:16 WBC 18.2 H RBC 4.98 Hgb 17.1 Hct 48.2 MCV 96.8 MCH 34.3 H MCHC 35.5 RDW 14.4 Plt Count 185 MPV 8.5 Immature Gran % (Auto) 0.4 Neut % (Auto) 76.8 H Lymph % (Auto) 11.2 L [place] % (Auto) 10.8 H Eos % (Auto) 0.5 Baso % (Auto) 0.3 Lymph # (Auto) 2.04 [place] # (Auto) 2.0 H Eos # (Auto) 0.1 Baso # (Auto) 0.1 Abs Immat Gran (auto) 0.08 H Absolute Neuts (auto) 13.9 H Absolute Nucleated RBC 0.000 Nucleated RBC % 0.0 PT 22.7 H D INR 2.1 APTT 45.8 H 43.8 H Puncture Site ABG pH ABG pCO2 ABG pO2 ABG PO2/FiO2 Ratio ABG HCO3 ABG O2 Saturation ABG O2 Content ABG Base Excess A-a Gradient Oxyhemoglobin Total Hemoglobin O2 Delivery Device O2 Liters/Min FiO2 Sodium Potassium Chloride Carbon Dioxide Anion Gap BUN Creatinine Estim Creat Clear Calc Estimated GFR Glucose Lactic Acid Calcium Magnesium Total Bilirubin AST ALT Alkaline Phosphatase Troponin I Cancelled < 0.012 C-Reactive Protein 23.0 H NT-Pro-B Natriuret Pep < 20 Total Protein Albumin Procalcitonin 0.3 Urine Pneumococcal Ag 12/06/24 03:54 WBC 18.6 H RBC 4.87 Hgb 16.4 Hct 47.0 MCV 96.5 MCH 33.7 MCHC 34.9 RDW 14.5 Plt Count 198 MPV 8.5 Immature Gran % (Auto) 0.4 Neut % (Auto) 77.5 H Lymph % (Auto) 10.5 L [place] % (Auto) 10.8 H Eos % (Auto) 0.5 Baso % (Auto) 0.3 Lymph # (Auto) 1.94 [place] # (Auto) 2.0 H Eos # (Auto) 0.1 Baso # (Auto) 0.1 Abs Immat Gran (auto) 0.08 H Absolute Neuts (auto) 14.4 H Absolute Nucleated RBC 0.000 Nucleated RBC % 0.0 PT INR APTT 55.3 H Puncture Site ABG pH ABG pCO2 ABG pO2 ABG PO2/FiO2 Ratio ABG HCO3 ABG O2 Saturation ABG O2 Content ABG Base Excess A-a Gradient Oxyhemoglobin Total Hemoglobin O2 Delivery Device O2 Liters/Min FiO2 Sodium 134 L Potassium 4.0 Chloride 100 Carbon Dioxide 24 Anion Gap 10 BUN 20 Creatinine 1.38 H Estim Creat Clear Calc 115 Estimated GFR 57 L Glucose 133 H Lactic Acid 0.7 Calcium 8.6 Magnesium 2.0 Total Bilirubin 1.8 H AST 46 ALT 36 Alkaline Phosphatase 82 Troponin I C-Reactive Protein NT-Pro-B Natriuret Pep Total Protein 7.8 Albumin 3.9 Procalcitonin Urine Pneumococcal Ag
[2024-12-06 11:23] LABS: Partial Thromboplastin Time 48.1 Seconds (22.3-36.8)
[2024-12-06] MEDS: guaiFENesin 12 HR 600 MG TABCR 1200 MG PO ×2 (11:44→20:31)
--- NOTE | 2024-12-06 15:07 | P.PNIM_ITS ---
Progress Note: A&P Assessment and Plan (1) Pneumonia: Code(s): J18.9 - Pneumonia, unspecified organism Status: Acute Assessment and Plan: SOB CT chest bilateral opacities -continue with DuoNebs. F/u Blood and sputum cultures Continue Rocephin and Azithromycin (2) Pulmonary embolus: Code(s): I26.99 - Other pulmonary embolism without acute cor pulmonale Status: Acute Assessment and Plan: With left DVT -CTA shows 1. Pulmonary emboli involving multiple basilar segmental and subsegmental pulmonary arteries in the bilateral lower lobes and possibly also in the right upper lobar and posterior segmental pulmonary arteries. No findings of right heart strain. Venous Doppler showed LLE DVT Stopped Xarelto, on Heparin Monitor Pulmonology following discussed with him this morning and agrees with care (3) Obstructive sleep apnea syndrome: Code(s): G47.33 - Obstructive sleep apnea (adult) (pediatric) Status: Acute Assessment and Plan: -the patient is compliant with his CPAP machine at home -auto titrate CPAP. (4) Hypertension: Qualifiers: Hypertension type: essential hypertension Qualified Code(s): I10 - Essential (primary) hypertension Code(s): I10 - Essential (primary) hypertension Status: Acute Assessment and Plan: -his blood pressure is elevated today at 160/98. -continue with his Maxzide as the Norvasc may cause some edema. -I am going to give him a 1 time dose of Lasix due to his edema which should help with the blood pressure as well. -continue with labetalol -continue lisinopril -continue with Norvasc (5) Tobacco abuse: Code(s): Z72.0 - Tobacco use Status: Acute Assessment and Plan: -we discussed the importance of smoking cessation. The patient is in agreement Plan The patient also has psoriasis and uses Skyrizi every 3 months. He stated that this clears up his psoriasis. Acute hypoxemic respiratory failure On HFNC 40 L adn 95% No oxygen at baseline Continue titrating oxygen Pulmonology following Right sided CVA tenderness CT AP from 12/04 no acute changes Patient already on Rocephin and Doxycycline Cultures still negative US renal ordered continue Rocephin and Doxycycline monitor DVT prophylaxis on Heparin infusion Subjective Date/time seen: 12/06/24 15:07 Interval history: Patient noted marked improvement from yesterydau Review of Systems Constitutional: Constitutional: Reports as per HPI and Reports no additional constitutional complaints Eyes: Eyes: Reports as per HPI and Reports no additional eye complaints ENT: Reports system reviewed and no additional complaints, except as documented and Reports Normal hearing present Cardiovascular: Cardiovascular: Reports no additional cardiovascular complaints Respiratory: Respiratory: Reports as per HPI and Reports no additional respiratory complaints Gastrointestinal: Gastrointestinal: Reports as per HPI and Reports no additional gastrointestinal complaints Musculoskeletal: Musculoskeletal: Reports no additional musculoskeletal complaints Integumentary/Breasts: Skin/Breast: Reports system reviewed and no additional complaints, except as docu Neurologic: Reports system reviewed and no additional complaints, except as documented and Reports Normal hearing present Psychiatric: Psychiatric: Reports no additional psychiatric complaints and Reports as per HPI Hematologic/Lymphatic: Hematologic/Lymphatic: Reports no additional hematologic/lymphatic complaints Allergic/Immunologic: Allergic/Immunologic: Reports no additional all ergic/immunologic complaints Exam Const: General: cooperative, healthy appearing, no acute distress, well developed, awake and well nourished Nutritional Appearance: well nourished Orientation/consciousness: oriented to person, oriented to place, oriented to time and patient oriented x3 Limitations: no limitations HENMT: Head: normal to inspection, No palpable skull fracture present, normocephalic, atraumatic and abrasion Ears: hearing grossly normal bilaterally Eyes: General: appearance normal, both eyes and all related structures Alignment and Position: alignment normal Periorbital: periorbital findings normal Eyelids: eyelids normal Pupils: Equal, round and reactive pupils present EOM: EOMs intact bilaterally Neck: Neck: normal visual inspection, full ROM and no lymphadenopathy Chest: Chest palpation & inspection: normal inspection of the chest Resp: Effort & Inspection: normal respiratory effort Auscultation: clear to auscultation bilaterally Cardio: Palpation: normal PMI Rate: regular rate Rhythm: regular rhythm Heart sounds: S1 normal heart sound present and S2 normal heart sound present Peripheral pulses: Peripheral pulses 2+ throughout GI: Inspection: normal to inspection Auscultation: normal bowel sounds Rectal Exam: deferred Back/Spine/Pelvis: Cervical Spine: cervical ROM normal Skin: General skin exam: normal color Lesions: no lesions Rashes: no rashes Trauma: no lacerations or abrasions Wounds: no wounds Hair: normal Nails: normal Neuro: General: oriented to person, oriented to place, oriented to time and patient oriented x3 Cranial nerves: Yes Equal, round and reactive pupils present and Yes Normal hearing present Cognition (Neuro): normal cognition Speech: normal speech Motor exam (neuro): 5/5 motor strength present throughout Sensory Exam: normal sensation Extrem: General: normal to inspection, no calf tenderness, edema bilateral and pedal edema bilaterally pitting and 2+ Right upper extremity: normal to in spection and shoulder/upper arm Left upper extremity: normal to inspection and shoulder/upper arm Other: Pretibial edema 2+ pitting edema Psych: Appearance: grossly normal Mental Status: mental status grossly normal Speech and movement: Normal speech and movement present Affect: normal affect Attitude: cooperative Thought process: Normal thought process present Insight: Good insight present (Psych) Judgement: Good judgement present (Psych) Objective Data Vital Signs Vital Signs: Vital Signs - 24 hr 12/05/24 16:00 12/05/24 16:00 12/05/24 17:27 Temperature 99.3 F Pulse Rate 84 97 103 H Respiratory Rate 16 Blood Pressure 135/75 Pulse Oximetry 96 Oxygen Delivery Oxygen Flow Rate Fraction of Inspired Oxygen 12/05/24 18:00 12/05/24 19:58 12/05/24 20:00 Temperature 98.6 F Pulse Rate 99 101 H 99 Respiratory Rate 22 H 22 H Blood Pressure 126/65 Pulse Oximetry 91 92 Oxygen Delivery High Flow Therapy with Na Oxygen Flow Rate 40 Fraction of Inspired Oxygen 80 12/05/24 20:00 12/05/24 20:46 12/05/24 20:56 Temperature Pulse Rate 99 102 H 102 H Respiratory Rate 20 Blood Pressure Pulse Oximetry 92 Oxygen Delivery High Flow Therapy with Na Oxygen Flow Rate 40 Fraction of Inspired Oxygen 83 12/05/24 21:16 12/05/24 22:00 12/05/24 22:55 Temperature Pulse Rate 98 112 H 105 H Respiratory Rate 20 24 H Blood Pressure Pulse Oximetry 95 Oxygen Delivery CPAP Oxygen Flow Rate Fraction of Inspired Oxygen 12/05/24 23:30 12/06/24 00:00 12/06/24 00:00 Temperature 100.6 F H Pulse Rate 101 H 101 H 104 H Respiratory Rate 22 H 22 H Blood Pressure 138/69 Pulse Oximetry 92 93 Oxygen Delivery High Flow Therapy with Na Oxygen Flow Rate 40 Fraction of Inspired Oxygen 80 12/06/24 02:00 12/06/24 02:17 12/06/24 02:18 Temperature Pulse Rate 107 H 104 H 111 H Respiratory Rate 20 Blood Pressure Pulse Oximetry 92 Oxygen Delivery High Flow Therapy with Na Oxygen Flow Rate 40 Fraction of Inspired Oxygen 80 12/06/24 02:24 12/06/24 04:00 12/06/24 04:00 Temperature Pulse Rate 104 H 101 H 101 H Respiratory Rate 20 22 H Blood Pressure Pulse Oximetry 93 Oxygen Delivery High Flow Therapy with Na Oxygen Flow Rate 40 Fraction of Inspired Oxygen 80 12/06/24 04:07 12/06/24 06:00 12/06/24 07:33 Temperature 98.0 F Pulse Rate 91 100 102 H Respiratory Rate 22 H 20 Blood Pressure 126/63 Pulse Oximetry 99 Oxygen Delivery Oxygen Flow Rate Fraction of Inspired Oxygen 12/06/24 07:58 12/06/24 08:00 12/06/24 08:00 Temperature 99.4 F Pulse Rate 101 H 99 Respiratory Rate 20 Blood Pressure 144/66 H Pulse Oximetry 92 91 Oxygen Delivery High Flow Therapy with Na Oxygen Flow Rate 40 Fraction of Inspired Oxygen 75 12/06/24 08:24 12/06/24 09:55 12/06/24 11:08 Temperature 98.9 F Pulse Rate 107 H 93 94 Respiratory Rate 22 H Blood Pressure 115/79 Pulse Oximetry 93 Oxygen Delivery Oxygen Flow Rate Fraction of Inspired Oxygen 12/06/24 11:17 12/06/24 11:42 12/06/24 12:00 Temperature Pulse Rate 106 H 98 Respiratory Rate 20 Blood Pressure Pulse Oximetry 93 Oxygen Delivery High Flow Therapy with Na Oxygen Flow Rate 40 Fraction of Inspired Oxygen 95 12/06/24 14:00 Temperature Pulse Rate 106 H Respiratory Rate Blood Pressure Pulse Oximetry Oxygen Delivery Oxygen Flow Rate Fraction of Inspired Oxygen Intake/Output Intake/Output: Intake & Output 12/03/24 12/04/24 12/05/24 12/06/24 23:59 23:59 23:59 23:59 Intake Total 1086.5 2019.9 Output Total 800 1050 Balance 286.5 969.9 Meds/Results Medications: Active Medications Generic Name Dose Route Start Last Admin Trade Name Freq PRN Reason Stop Dose Admin Acetaminophen 500 mg 12/04/24 22:34 Acetaminophen 500 Mg Tablet PO Q6H PRN Mild Pain (1-3) or Fever Hydrocodone Bitart/Acetaminophen 1 tab 12/05/24 23:16 12/06/24 12:01 Hydrocodone/Acetaminophen (*Crx) 7.5-325 Mg Tablet PO 1 tab Q4H PRN Administration Pain Rated 4-6 Albuterol/Ipratropium 3 ml 12/06/24 12:00 12/06/24 11:41 Ipratropium 0.5 Mg/Albuterol Sulfate 2.5 Mg Ampul.Neb 3 Ml INHALATION 3 ml [id number] BRAULIO Administration Amlodipine Besylate 10 mg 12/04/24 22:40 12/05/24 20:20 Amlodipine Besylate 10 Mg Tablet PO 10 mg HS BRAULIO Administration Guaifenesin 1,200 mg 12/06/24 09:00 12/06/24 11:44 Guaifenesin 12 Hr 600 Mg Tabcr PO 1,200 mg Q12HR BRAULIO Administration Heparin Sodium (Porcine) 10,000 units 12/05/24 13:33 12/06/24 11:44 Heparin Sodium 5,000 Units/Ml Vial IV PUSH 10,000 units PRN PRN Administration aPTT less than 55 seconds Heparin Sodium (Porcine) 5,000 units 12/05/24 13:33 12/06/24 04:56 Heparin Sodium 5,000 Units/Ml Vial IV PUSH 5,000 units PRN PRN Administration aPTT 55 - 70 seconds Hydromorphone HCl 2 mg 12/05/24 23:17 12/06/24 07:02 Hydromorphone Hcl Inj (*Crx) 1 Mg/Ml Syr IV PUSH 2 mg Q3H PRN Administration Pain Rated 7-10 Ceftriaxone Sodium 1 gm/ 50 mls @ 100 mls/hr 12/05/24 22:00 12/05/24 22:20 Sodium Chloride IVPB Infused Q24H BRAULIO Infusion Doxycycline Hyclate 100 mg/ 100 mls @ 100 mls/hr 12/05/24 06:00 12/06/24 06:05 Sodium Chloride IVPB 12/09/24 18:59 Infused Q12H BRAULIO Infusion Heparin Sodium/Dextrose 25,000 units in 250 mls @ 28 mls/hr 12/05/24 13:35 12/06/24 11:44 Heparin Sodium/D5w 100 Units/Ml IV CONT 2,800 units/hr .Q8H56M BRAULIO 28 mls/hr Protocol Titration 2,800 UNITS/HR Labetalol HCl 100 mg 12/06/24 21:00 Labetalol Hcl 100 Mg Tablet PO Q12HR [facility] Lisinopril 40 mg 12/05/24 09:00 12/06/24 08:24 Lisinopril 20 Mg Tablet PO 40 mg DAILY [facility] Administration Rivaroxaban 20 mg 12/25/24 17:00 Rivaroxaban 20 Mg Tablet PO DAILY@1700 [facility] Triamterene/Hydrochlorothiazide 1 tab 12/05/24 09:00 12/06/24 08:24 Triamterene 37.5 Mg/Hctz 25 Mg (Maxzide) Tablet PO 1 tab DAILY [facility] Administration Radiology Results: ITS Impressions Chest/Abdomen/Pelvis CTA 12/04/24 19:35 IMPRESSION: 1. Pulmonary emboli involving multiple basilar segmental and subsegmental pulmonary arteries in the bilateral lower lobes and possibly also in the right upper lobar and posterior segmental pulmonary arteries. No findings of right heart strain. 2. Increasing airspace disease in the bilateral lower lobes, right greater than left and in the posterior right upper lobe suspicious for pulmonary infarcts with differential including pneumonia, atelectasis or some combination thereof. 3. No acute intra-abdominal/pelvic process. 4. Diffuse hepatic steatosis. Venous Doppler Study 12/05/24 08:31 Impression: Left-sided DVT. Chest X-Ray 12/06/24 07:44 IMPRESSION: 1. Increasing opacities in bilateral mid and lower lung zones consistent with atelectasis, pneumonia and/or pulmonary infarcts likely superimposed over small bilateral pleural effusions. Labs Labs: Laboratory Results - last 24 hr 12/05/24 12/05/24 12/05/24 16:18 16:52 16:52 WBC 18.2 H RBC 4.98 Hgb 17.1 Hct 48.2 MCV 96.8 MCH 34.3 H MCHC 35.5 RDW 14.4 Plt Count 185 MPV 8.5 Immature Gran % (Auto) 0.4 Neut % (Auto) 76.8 H Lymph % (Auto) 11.2 L [place] % (Auto) 10.8 H Eos % (Auto) 0.5 Baso % (Auto) 0.3 Lymph # (Auto) 2.04 [place] # (Auto) 2.0 H Eos # (Auto) 0.1 Baso # (Auto) 0.1 Abs Immat Gran (auto) 0.08 H Absolute Neuts (auto) 13.9 H Absolute Nucleated RBC 0.000 Nucleated RBC % 0.0 PT 22.7 H D INR 2.1 APTT 45.8 H Sodium Potassium Chloride Carbon Dioxide Anion Gap BUN Creatinine Estim Creat Clear Calc Estimated GFR Glucose Lactic Acid Calcium Magnesium Total Bilirubin AST ALT Alkaline Phosphatase Troponin I Cancelled < 0.012 C-Reactive Protein 23.0 H NT-Pro-B Natriuret Pep < 20 Total Protein Albumin Procalcitonin 0.3 Urine Pneumococcal Ag Cancelled 12/05/24 12/06/24 12/06/24 21:16 03:54 10:49 WBC 18.6 H RBC 4.87 Hgb 16.4 Hct 47.0 MCV 96.5 MCH 33.7 MCHC 34.9 RDW 14.5 Plt Count 198 MPV 8.5 Immature Gran % (Auto) 0.4 Neut % (Auto) 77.5 H Lymph % (Auto) 10.5 L [place] % (Auto) 10.8 H Eos % (Auto) 0.5 Baso % (Auto) 0.3 Lymph # (Auto) 1.94 [place] # (Auto) 2.0 H Eos # (Auto) 0.1 Baso # (Auto) 0.1 Abs Immat Gran (auto) 0.08 H Absolute Neuts (auto) 14.4 H Absolute Nucleated RBC 0.000 Nucleated RBC % 0.0 PT INR APTT 43.8 H 55.3 H 48.1 H Sodium 134 L Potassium 4.0 Chloride 100 Carbon Dioxide 24 Anion Gap 10 BUN 20 Creatinine 1.38 H Estim Creat Clear Calc 115 Estimated GFR 57 L Glucose 133 H Lactic Acid 0.7 Calcium 8.6 Magnesium 2.0 Total Bilirubin 1.8 H AST 46 ALT 36 Alkaline Phosphatase 82 Troponin I C-Reactive Protein NT-Pro-B Natriuret Pep Total Protein 7.8 Albumin 3.9 Procalcitonin Urine Pneumococcal Ag Quality VTE Prophylaxis VTE prophylaxis: pharmacologic ordered
[2024-12-06] MEDS: HEPARIN SOD/D5W 100 UNITS/ML 25,000 UNITS/250 ML BAG 28 UNITS IV CONT (15:13)
[2024-12-06 18:10] LABS: Partial Thromboplastin Time 52.8 Seconds (22.3-36.8)
--- NOTE | 2024-12-06 20:39 | PM.EVENT ---
Event Note Event Note Event Note: The patient is having difficulty becoming therapeutic on the heparin drip. I spoke with the printing machine mechanic Dr. Self concerning the increased need for heparin with a subtherapeutic PTT. I also spoke to the pharmacist concerning dosages. After much consideration, it was felt that the best therapy for this gentleman's condition would be for him to get his 1st dose of Xarelto tonight and to continue with this. Labs were drawn for heparin resistance as well. I appreciate Dr. Self's input in this gentleman's situation. The heparin drip will be discontinued. It was also felt that Lovenox would be subtherapeutic as well due to the patient's BMI. The patient would require higher than normal levels of Lovenox to become therapeutic. The risk and benefits were outweighed in this situation.
[2024-12-06 20:46] LABS: INR 1.3; Prothrombin Time 16.4 Seconds (11.1-14.7)
[2024-12-06 21:02] LABS: Hematocrit 45.6 % (42.0-52.0); Hemoglobin 16.0 g/dL (14.0-18.0); Immature Granulocyte Percent A 0.4 % (0-0.5); Lymphocytes Absolute Auto 1.26 K/mm3 (0.9-3.2); Mean Corpuscular HGB Conc 35.1 g/dl (32-36); Mean Corpuscular Hemoglobin 33.8 pg (26-34); Mean Corpuscular Volume 96.4 fl (80-100); Nucleated Red Blood Cells Absolute Auto 0.000 K/mm3 (0.0-0.012); Nucleated Red Blood Cells Perc 0.0 % (0.0-0.2); Platelet Count Result 177 k/mm3 (150-375); Red Blood Count 4.73 M/mm3 (4.6-6.20); White Blood Count 20.0 K/mm3 (4.5-10.0)
[2024-12-06] MEDS: RIVAROXABAN 15 MG TABLET PO (21:05)
[2024-12-06] MEDS: cefTRIAXone 1 GM in SODIUM CHLORIDE 0.9% IV 50 ML 100 ML IVPB (21:44)
[2024-12-07] VITALS (28 sets, daily range): BP systolic 111–121; BP diastolic 54–66; PULSE 84–116; RESP 16–28; TEMP 36.8–38.8; O2SAT 90–96
[2024-12-07 02:02] LABS: Hematocrit 46.1 % (42.0-52.0); Hemoglobin 16.0 g/dL (14.0-18.0); Immature Granulocyte Percent A 0.4 % (0-0.5); Lymphocytes Absolute Auto 1.62 K/mm3 (0.9-3.2); Mean Corpuscular HGB Conc 34.7 g/dl (32-36); Mean Corpuscular Hemoglobin 34.0 pg (26-34); Mean Corpuscular Volume 97.9 fl (80-100); Nucleated Red Blood Cells Absolute Auto 0.000 K/mm3 (0.0-0.012); Nucleated Red Blood Cells Perc 0.0 % (0.0-0.2); Platelet Count Result 194 k/mm3 (150-375); Red Blood Count 4.71 M/mm3 (4.6-6.20); White Blood Count 19.8 K/mm3 (4.5-10.0)
[2024-12-07 02:15] LABS: Alanine Aminotransferase 48 U/L (6-50); Albumin Level 3.9 g/dL (3.5-5.1); Alkaline Phosphatase 77 U/L (38-126); Anion Gap 7 mmol/L (4-12); Aspartate Amino Transferase 62 U/L (17-59); Bilirubin,Total 1.6 mg/dL (0.2-1.3); Blood Urea Nitrogen 22 mg/dL (9-20); Calcium 8.7 mg/dL (8.4-10.2); Carbon Dioxide 26 mmol/L (22-30); Chloride 100 mmol/L (98-107); Estimated CRCL calculation 132 ml/min; Estimated Glomerular Filt Rate > 60; Glucose 133 mg/dL (65-110); Magnesium 2.1 mg/dL (1.6-2.3); Potassium 4.2 mmol/L (3.4-5.0); Sodium 133 mmol/L (137-145); Total Protein 8.3 g/dL (6.3-8.2)
[2024-12-07 03:03] LABS: Partial Thromboplastin Time 44.1 Seconds (22.3-36.8)
[2024-12-07] MEDS: IPRATROPIUM 0.5 MG/ALBUTEROL SULFATE 2.5 MG AMPUL.NEB 3 ML INHALATION ×4 (07:27→20:50)
[2024-12-07] MEDS: HYDROmorphone HCL INJ (*CRX) 1 MG/ML SYR 2 MG IV PUSH ×3 (07:56→23:11)
[2024-12-07] MEDS: LABETALOL HCL 100 MG TABLET PO ×2 (08:02→20:51)
[2024-12-07] MEDS: RIVAROXABAN 15 MG TABLET PO ×2 (08:02→17:17)
[2024-12-07] MEDS: guaiFENesin 12 HR 600 MG TABCR 1200 MG PO ×2 (08:03→20:51)
[2024-12-07] MEDS: TRIAMTERENE 37.5 MG/HCTZ 25 MG (MAXZIDE) TABLET 1 TAB PO (08:03)
[2024-12-07] MEDS: HYDROcodone/acetaminophen (*CRX) 7.5-325 MG TABLET 1 TAB PO ×3 (09:08→20:51)
[2024-12-07] MEDS: DOXYCYCLINE IV 100 MG in SODIUM CHLORIDE 0.9% IV 100 ML IVPB ×2 (09:09→20:17)
--- NOTE | 2024-12-07 12:39 | PM.IMPN ---
Progress Note: A&P Assessment and Plan (1) Pneumonia: Code(s): J18.9 - Pneumonia, unspecified organism Status: Acute Assessment and Plan: SOB CT chest bilateral opacities -continue with DuoNebs. F/u Blood and sputum cultures Continue Rocephin and Azithromycin (2) Pulmonary embolus: Code(s): I26.99 - Other pulmonary embolism without acute cor pulmonale Status: Acute Assessment and Plan: With left DVT -CTA shows 1. Pulmonary emboli involving multiple basilar segmental and subsegmental pulmonary arteries in the bilateral lower lobes and possibly also in the right upper lobar and posterior segmental pulmonary arteries. No findings of right heart strain. Venous Doppler showed LLE DVT Now back on Xarelto since Heparin is subtherapeutic Monitor PDiscussed with Pulmonology (3) Obstructive sleep apnea syndrome: Code(s): G47.33 - Obstructive sleep apnea (adult) (pediatric) Status: Acute Assessment and Plan: -the patient is compliant with his CPAP machine at home -auto titrate CPAP. (4) Hypertension: Qualifiers: Hypertension type: essential hypertension Qualified Code(s): I10 - Essential (primary) hypertension Code(s): I10 - Essential (primary) hypertension Status: Acute Assessment and Plan: -his blood pressure is elevated today at 160/98. -continue with his Maxzide as the Norvasc may cause some edema. -I am going to give him a 1 time dose of Lasix due to his edema which should help with the blood pressure as well. -continue with labetalol -continue lisinopril -continue with Norvasc (5) Tobacco abuse: Code(s): Z72.0 - Tobacco use Status: Acute Assessment and Plan: -we discussed the importance of smoking cessation. The patient is in agreement Plan The patient also has psoriasis and uses Skyrizi every 3 months. He stated that this clears up his psoriasis. Acute hypoxemic respiratory failure On HFNC 40 L adn 95% No oxygen at baseline Continue titrating oxygen Pulmonology following Bilateral flank pain and CVA tenderness CT AP from 12/04 no acute changes Patient already on Rocephin and Doxycycline Cultures still negative US renal unremarkable repeat CT AP today continue Rocephin and Doxycycline monitor DVT prophylaxis on Xarelto Subjective Date/time seen: 12/07/24 12:39 Interval history: Complains of bilateral flank pain CT AP ordered since us renal unremarkable Review of Systems Constitutional: Constitutional: Reports as per HPI and Reports no additional constitutional complaints Eyes: Eyes: Reports as per HPI and Reports no additional eye complaints ENT: Reports system reviewed and no additional complaints, except as documented and Reports Normal hearing present Cardiovascular: Cardiovascular: Reports no additional cardiovascular complaints Respiratory: Respiratory: Reports as per HPI and Reports no additional respiratory complaints Gastrointestinal: Gastrointestinal: Reports as per HPI and Reports no additional gastrointestinal complaints Musculoskeletal: Musculoskeletal: Reports no additional musculoskeletal complaints Integumentary/Breasts: Skin/Breast: Reports system reviewed and no additional complaints, except as docu Neurologic: Reports system reviewed and no additional complaints, except as documented and Reports Normal hearing present Psychiatric: Psychiatric: Reports no additional psychiatric complaints and Reports as per HPI Hematologic/Lymphatic: Hematologic/Lymphatic: Reports no additional hematologic/lymphatic complaints Allergic/Immunologic: Allergic/Immunologic: Reports no additional allergic/immunologic complaints Exam Const: General: cooperative, healthy appearing, no acute distress, well developed, awake and well nourished Nutritional Appearance: well nourished Orientation/consciousness: oriented to person, oriented to place, oriented to time and patient oriented x3 Limitations: no limitations HENMT: Head: normal to inspection, No palpable skull fracture present, normocephalic, atraumatic and abrasion Ears: hearing grossly normal bilaterally Eyes: General: appearance normal, both eyes and all related structures Alignment and Position: alignment normal Periorbital: periorbital findings normal Eyelids: eyelids normal Pupils: Equal, round and reactive pupils present EOM: EOMs intact bilaterally Neck: Neck: normal visual inspection, full ROM and no lymphadenopathy Chest: Chest palpation & inspection: normal inspection of the chest Resp: Effort & Inspection: normal respiratory effort Auscultation: clear to auscultation bilaterally Cardio: Palpation: normal PMI Rate: regular rate Rhythm: regular rhythm Heart sounds: S1 normal heart sound present and S2 normal heart sound present Peripheral pulses: Peripheral pulses 2+ throughout GI: Inspection: normal to inspection Auscultation: normal bowel sounds Rectal Exam: deferred Back/Spine/Pelvis: Cervical Spine: cervical ROM normal Skin: General skin exam: normal color Lesions: no lesions Rashes: no rashes Trauma: no lacerations or abrasions Wounds: no wounds Hair: normal Nails: normal Neuro: General: oriented to person, oriented to place, oriented to time and patient oriented x3 Cranial nerves: Yes Equal, round and reactive pupils present and Yes Normal hearing present Cognition (Neuro): normal cognition Speech: normal speech Motor exam (neuro): 5/5 motor strength present throughout Sensory Exam: normal sensation Extrem: General: normal to inspection, no calf tenderness, edema bilateral and pedal edema bilaterally pitting and 2+ Right upper extremity: normal to inspection and shoulder/upper arm Left upper extremity: normal to inspection and shoulder/upper arm Other: Pretibial edema 2+ pitting edema Psych: Appearance: grossly normal Mental Status: mental status grossly normal Speech and movement: Normal speech and movement present Affect: normal affect Attitude: cooperative Thought process: Normal thought process present Insight: Good insight present (Psych) Judgement: Good judgement present (Psych) Objective Data Vital Signs Vital Signs: Vital Signs - 24 hr 12/06/24 14:00 12/06/24 15:10 12/06/24 16:00 Temperature 99.0 F Pulse Rate 106 H 101 H Respiratory Rate 20 Blood Pressure 126/72 Pulse Oximetry 93 92 Oxygen Delivery High Flow Therapy with Na Oxygen Flow Rate 40 Fraction of Inspired Oxygen 75 12/06/24 16:00 12/06/24 16:22 12/06/24 16:35 Temperature Pulse Rate 93 100 96 Respiratory Rate 24 H 20 Blood Pressure Pulse Oximetry Oxygen Delivery Oxygen Flow Rate Fraction of Inspired Oxygen 12/06/24 18:00 12/06/24 20:00 12/06/24 20:00 Temperature 99.5 F Pulse Rate 112 H 115 H 111 H Respiratory Rate 26 H Blood Pressure 137/61 Pulse Oximetry 91 Oxygen Delivery Oxygen Flow Rate Fraction of Inspired Oxygen 12/06/24 20:30 12/06/24 20:32 12/06/24 20:41 Temperature Pulse Rate 119 H 111 H 119 H Respiratory Rate 24 H 24 H Blood Pressure Pulse Oximetry 87 L Oxygen Delivery High Flow Therapy with Na Oxygen Flow Rate 40 Fraction of Inspired Oxygen 95 12/06/24 20:41 12/06/24 20:53 12/06/24 22:00 Temperature Pulse Rate 119 H 112 H 96 Respiratory Rate 22 H Blood Pressure Pulse Oximetry 93 Oxygen Delivery High Flow Therapy with Na Oxygen Flow Rate 40 Fraction of Inspired Oxygen 80 12/06/24 23:13 12/06/24 23:40 12/07/24 00:00 Temperature 101 F H 99.2 F Pulse Rate 91 Respiratory Rate 23 H Blood Pressure 127/60 Pulse Oximetry 93 93 Oxygen Delivery High Flow Therapy with Na Oxygen Flow Rate 40 Fraction of Inspired Oxygen 95 12/07/24 00:00 12/07/24 00:07 12/07/24 02:00 Temperature Pulse Rate 96 99 116 H Respiratory Rate 19 Blood Pressure Pulse Oximetry 93 Oxygen Delivery CPAP Oxygen Flow Rate Fraction of Inspired Oxygen 12/07/24 04:00 12/07/24 04:00 12/07/24 04:00 Temperature 102 F H Pulse Rate 102 H 97 Respiratory Rate 18 Blood Pressure 121/60 Pulse Oximetry 94 96 Oxygen Delivery High Flow Therapy with Na Oxygen Flow Rate 40 Fraction of Inspired Oxygen 95 12/07/24 06:00 12/07/24 07:30 12/07/24 07:35 Temperature Pulse Rate 97 100 100 Respiratory Rate 22 H 22 H Blood Pressure Pulse Oximetry Oxygen Delivery Oxygen Flow Rate Fraction of Inspired Oxygen 12/07/24 07:35 12/07/24 07:38 12/07/24 08:00 Temperature 100.4 F H Pulse Rate 102 H Respiratory Rate 16 Blood Pressure 111/66 Pulse Oximetry 95 96 96 Oxygen Delivery High Flow Therapy with Na High Flow Therapy with Na Oxygen Flow Rate 40 40 Fraction of Inspired Oxygen 90 88 12/07/24 08:00 12/07/24 08:02 12/07/24 10:00 Temperature Pulse Rate 104 H 104 H 86 Respiratory Rate Blood Pressure Pulse Oximetry Oxygen Delivery Oxygen Flow Rate Fraction of Inspired Oxygen 12/07/24 11:05 12/07/24 11:10 12/07/24 11:12 Temperature Pulse Rate 84 86 Respiratory Rate 20 18 Blood Pressure Pulse Oximetry 90 Oxygen Delivery High Flow Therapy with Na Oxygen Flow Rate 40 Fraction of Inspired Oxygen 90 12/07/24 12:00 12/07/24 12:00 Temperature Pulse Rate 86 Respiratory Rate Blood Pressure Pulse Oximetry 94 Oxygen Delivery High Flow Therapy with Na Oxygen Flow Rate 40 Fraction of Inspired Oxygen 88 Intake/Output Intake/Output: Intake & Output 12/04/24 12/05/24 12/06/24 12/07/24 23:59 23:59 23:59 23:59 Intake Total 1086.5 2328.8 650 Output Total 800 1050 975 Balance 286.5 1278.8 -325 Meds/Results Medications: Active Medications Generic Name Dose Route Start Last Admin Trade Name Freq PRN Reason Stop Dose Admin Acetaminophen 500 mg 12/04/24 22:34 Acetaminophen 500 Mg Tablet PO Q6H PRN Mild Pain (1-3) or Fever Hydrocodone Bitart/Acetaminophen 1 tab 12/05/24 23:16 12/07/24 09:08 Hydrocodone/Acetaminophen (*Crx) 7.5-325 Mg Tablet PO 1 tab Q4H PRN Administration Pain Rated 4-6 Albuterol/Ipratropium 3 ml 12/06/24 12:00 12/07/24 11:05 Ipratropium 0.5 Mg/Albuterol Sulfate 2.5 Mg Ampul.Neb 3 Ml INHALATION 3 ml [id number] BRAULIO Administration Amlodipine Besylate 10 mg 12/04/24 22:40 12/06/24 20:32 Amlodipine Besylate 10 Mg Tablet PO 10 mg HS BRAULIO Administration Guaifenesin 1,200 mg 12/06/24 09:00 12/07/24 08:03 Guaifenesin 12 Hr 600 Mg Tabcr PO 1,200 mg Q12HR BRAULIO Administration Hydromorphone HCl 2 mg 12/05/24 23:17 12/07/24 07:56 Hydromorphone Hcl Inj (*Crx) 1 Mg/Ml Syr IV PUSH 2 mg Q3H PRN Administration Pain Rated 7-10 Ceftriaxone Sodium 1 gm/ 50 mls @ 100 mls/hr 12/05/24 22:00 12/06/24 21:44 Sodium Chloride IVPB 100 mls/hr Q24H BRAULIO Administration Doxycycline Hyclate 100 mg/ 100 mls @ 100 mls/hr 12/06/24 21:00 12/07/24 10:09 Sodium Chloride IVPB 12/09/24 21:59 Infused Q12H BRAULIO Infusion Labetalol HCl 100 mg 12/06/24 21:00 12/07/24 08:02 Labetalol Hcl 100 Mg Tablet PO 100 mg Q12HR BRAULIO Administration Lisinopril 40 mg 12/05/24 09:00 12/07/24 08:02 Lisinopril 20 Mg Tablet PO 40 mg DAILY BRAULIO Administration Rivaroxaban 15 mg 12/06/24 21:00 12/07/24 08:02 Rivaroxaban 15 Mg Tablet PO 12/27/24 08:01 15 mg BIDWM BRAULIO Administration Rivaroxaban 20 mg 12/28/24 17:00 Rivaroxaban 20 Mg Tablet PO DAILY@1700 [facility] Triamterene/Hydrochlorothiazide 1 tab 12/05/24 09:00 12/07/24 08:03 Triamterene 37.5 Mg/Hctz 25 Mg (Maxzide) Tablet PO 1 tab DAILY [facility] Administration Radiology Results: ITS Impressions Chest/Abdomen/Pelvis CTA 12/04/24 19:35 IMPRESSION: 1. Pulmonary emboli involving multiple basilar segmental and subsegmental pulmonary arteries in the bilateral lower lobes and possibly also in the right upper lobar and posterior segmental pulmonary arteries. No findings of right heart strain. 2. Increasing airspace disease in the bilateral lower lobes, right greater than left and in the posterior right upper lobe suspicious for pulmonary infarcts with differential including pneumonia, atelectasis or some combination thereof. 3. No acute intra-abdominal/pelvic process. 4. Diffuse hepatic steatosis. Venous Doppler Study 12/05/24 08:31 Impression: Left-sided DVT. Chest X-Ray 12/06/24 07:44 IMPRESSION: 1. Increasing opacities in bilateral mid and lower lung zones consistent with atelectasis, pneumonia and/or pulmonary infarcts likely superimposed over small bilateral pleural effusions. Renal Ultrasound 12/07/24 09:32 IMPRESSION: 1. Normal kidneys. No hydronephrosis. Labs Labs: Laboratory Results - last 24 hr 12/05/24 12/06/24 12/06/24 15:28 17:45 20:55 WBC 20.0 H RBC 4.73 Hgb 16.0 Hct 45.6 MCV 96.4 MCH 33.8 MCHC 35.1 RDW 14.3 Plt Count 177 MPV 8.5 Immature Gran % (Auto) 0.4 Neut % (Auto) 83.2 H Lymph % (Auto) 6.3 L Gilliam % (Auto) 9.4 H Eos % (Auto) 0.5 Baso % (Auto) 0.2 Lymph # (Auto) 1.26 Gilliam # (Auto) 1.9 H Eos # (Auto) 0.1 Baso # (Auto) 0.0 Abs Immat Gran (auto) 0.09 H Absolute Neuts (auto) 16.6 H Absolute Nucleated RBC 0.000 Nucleated RBC % 0.0 PT 16.4 H D INR 1.3 APTT 52.8 H Sodium Potassium Chloride Carbon Dioxide Anion Gap BUN Creatinine Estim Creat Clear Calc Estimated GFR Glucose Lactic Acid Calcium Magnesium Total Bilirubin AST ALT Alkaline Phosphatase Total Protein Albumin Chlamy pneumoniae PCR Not detected Adenovirus (PCR) Not detected B. pertussis DNA (PCR) Not detected B.parapertussis DNA PCR Not detected Coronavirus OC43 (PCR) Not detected Coronavirus HKU1 (PCR) Not detected Coronavirus 229E (PCR) Not detected Coronavirus NL63 (PCR) Not detected Human Metapneumovir PCR Not detected Influenza A (H1) PCR Not detected Influ A (H1/09) PCR Not detected Influenza A (H3) PCR Not detected Influenza Type A (PCR) Not detected Influenza Type B (PCR) Not detected M. pneumoniae (PCR) Not detected Parainfluenza 1 (PCR) Not detected Parainfluenza 2 (PCR) Not detected Parainfluenza 3 (PCR) Not detected Parainfluenza 4 (PCR) Not detected RSV (PCR) Not detected Entero/Rhino (PCR) Not detected SARS-CoV-2 (PCR) Not detected 12/07/24 12/07/24 01:48 01:49 WBC 19.8 H RBC 4.71 Hgb 16.0 Hct 46.1 MCV 97.9 MCH 34.0 MCHC 34.7 RDW 14.3 Plt Count 194 MPV 8.6 Immature Gran % (Auto) 0.4 Neut % (Auto) 80.2 H Lymph % (Auto) 8.2 L Gilliam % (Auto) 10.1 H Eos % (Auto) 0.8 Baso % (Auto) 0.3 Lymph # (Auto) 1.62 Gilliam # (Auto) 2.0 H Eos # (Auto) 0.2 Baso # (Auto) 0.1 Abs Immat Gran (auto) 0.07 H Absolute Neuts (auto) 15.9 H Absolute Nucleated RBC 0.000 Nucleated RBC % 0.0 PT INR APTT 44.1 H Sodium 133 L Potassium 4.2 Chloride 100 Carbon Dioxide 26 Anion Gap 7 BUN 22 H Creatinine 1.20 Estim Creat Clear Calc 132 Estimated GFR > 60 Glucose 133 H Lactic Acid 1.0 Calcium 8.7 Magnesium 2.1 Total Bilirubin 1.6 H AST 62 H ALT 48 Alkaline Phosphatase 77 Total Protein 8.3 H Albumin 3.9 Chlamy pneumoniae PCR Adenovirus (PCR) B. pertussis DNA (PCR) B.parapertussis DNA PCR Coronavirus OC43 (PCR) Coronavirus HKU1 (PCR) Coronavirus 229E (PCR) Coronavirus NL63 (PCR) Human Metapneumovir PCR Influenza A (H1) PCR Influ A (H1/09) PCR Influenza A (H3) PCR Influenza Type A (PCR) Influenza Type B (PCR) M. pneumoniae (PCR) Parainfluenza 1 (PCR) Parainfluenza 2 (PCR) Parainfluenza 3 (PCR) Parainfluenza 4 (PCR) RSV (PCR) Entero/Rhino (PCR) SARS-CoV-2 (PCR) Quality VTE Prophylaxis VTE prophylaxis: pharmacologic ordered
[2024-12-07 14:08] LABS: Anticardiolipin Ab,IgG,Qn <9 GPL U/mL (0-14); Anticardiolipin Ab,IgM,Qn <9 MPL U/mL (0-12)
--- NOTE | 2024-12-07 16:27 | PC.NURSE ---
On 12/07/24, the student, Brit Denny, provided care and completed [facility] documentation on this patient. I have reviewed the student's documentation and agree with the findings.
[2024-12-07] MEDS: cefTRIAXone 1 GM in SODIUM CHLORIDE 0.9% IV 50 ML 100 ML IVPB (21:39)
[2024-12-08] VITALS (23 sets, daily range): BP systolic 118–146; BP diastolic 54–69; PULSE 74–97; RESP 20–24; TEMP 36.7–37.4; O2SAT 91–99
[2024-12-08 04:14] LABS: Hematocrit 41.3 % (42.0-52.0); Hemoglobin 14.4 g/dL (14.0-18.0); Immature Granulocyte Percent A 0.4 % (0-0.5); Lymphocytes Absolute Auto 1.65 K/mm3 (0.9-3.2); Mean Corpuscular HGB Conc 34.9 g/dl (32-36); Mean Corpuscular Hemoglobin 33.9 pg (26-34); Mean Corpuscular Volume 97.2 fl (80-100); Nucleated Red Blood Cells Absolute Auto 0.000 K/mm3 (0.0-0.012); Nucleated Red Blood Cells Perc 0.0 % (0.0-0.2); Platelet Count Result 202 k/mm3 (150-375); Red Blood Count 4.25 M/mm3 (4.6-6.20); White Blood Count 17.7 K/mm3 (4.5-10.0)
[2024-12-08 07:18] LABS: Alanine Aminotransferase 49 U/L (6-50); Albumin Level 3.2 g/dL (3.5-5.1); Alkaline Phosphatase 78 U/L (38-126); Anion Gap 8 mmol/L (4-12); Aspartate Amino Transferase 55 U/L (17-59); Bilirubin,Total 1.0 mg/dL (0.2-1.3); Blood Urea Nitrogen 30 mg/dL (9-20); Calcium 8.2 mg/dL (8.4-10.2); Carbon Dioxide 25 mmol/L (22-30); Chloride 102 mmol/L (98-107); Estimated CRCL calculation 136 ml/min; Estimated Glomerular Filt Rate > 60; Glucose 148 mg/dL (65-110); Magnesium 2.3 mg/dL (1.6-2.3); Potassium 4.1 mmol/L (3.4-5.0); Sodium 135 mmol/L (137-145); Total Protein 6.5 g/dL (6.3-8.2)
[2024-12-08] MEDS: IPRATROPIUM 0.5 MG/ALBUTEROL SULFATE 2.5 MG AMPUL.NEB 3 ML INHALATION ×4 (07:26→21:17)
[2024-12-08] MEDS: HYDROcodone/acetaminophen (*CRX) 7.5-325 MG TABLET 1 TAB PO (08:46)
[2024-12-08] MEDS: DOXYCYCLINE IV 100 MG in SODIUM CHLORIDE 0.9% IV 100 ML IVPB ×2 (08:47→21:07)
[2024-12-08] MEDS: guaiFENesin 12 HR 600 MG TABCR 1200 MG PO ×2 (08:47→21:05)
[2024-12-08] MEDS: RIVAROXABAN 15 MG TABLET PO ×2 (08:47→16:57)
[2024-12-08] MEDS: TRIAMTERENE 37.5 MG/HCTZ 25 MG (MAXZIDE) TABLET 1 TAB PO (08:47)
[2024-12-08] MEDS: LABETALOL HCL 100 MG TABLET PO ×2 (08:47→21:05)
[2024-12-08] MEDS: HYDROmorphone HCL INJ (*CRX) 1 MG/ML SYR 2 MG IV PUSH ×2 (10:15→23:03)
[2024-12-08] MEDS: BISACODYL 5 MG TABLET EC PO (14:52)
--- NOTE | 2024-12-08 16:59 | PM.IMPN ---
Progress Note: A&P Assessment and Plan (1) Pneumonia: Code(s): J18.9 - Pneumonia, unspecified organism Status: Acute Assessment and Plan: SOB CT chest bilateral opacities -continue with DuoNebs. F/u Blood and sputum cultures Continue Rocephin and DOxycycline (2) Pulmonary embolus: Code(s): I26.99 - Other pulmonary embolism without acute cor pulmonale Status: Acute Assessment and Plan: With left DVT -CTA shows 1. Pulmonary emboli involving multiple basilar segmental and subsegmental pulmonary arteries in the bilateral lower lobes and possibly also in the right upper lobar and posterior segmental pulmonary arteries. No findings of right heart strain. Venous Doppler showed LLE DVT Contienu Xarelto Monitor Discussed with Pulmonology (3) Obstructive sleep apnea syndrome: Code(s): G47.33 - Obstructive sleep apnea (adult) (pediatric) Status: Acute Assessment and Plan: -the patient is compliant with his CPAP machine at home -auto titrate CPAP. (4) Hypertension: Qualifiers: Hypertension type: essential hypertension Qualified Code(s): I10 - Essential (primary) hypertension Code(s): I10 - Essential (primary) hypertension Status: Acute Assessment and Plan: -his blood pressure is elevated today at 160/98. -continue with his Maxzide as the Norvasc may cause some edema. -I am going to give him a 1 time dose of Lasix due to his edema which should help with the blood pressure as well. -continue with labetalol -continue lisinopril -continue with Norvasc (5) Tobacco abuse: Code(s): Z72.0 - Tobacco use Status: Acute Assessment and Plan: -we discussed the importance of smoking cessation. The patient is in agreement Plan The patient also has psoriasis and uses Skyrizi every 3 months. He stated that this clears up his psoriasis. Acute hypoxemic respiratory failure On HFNC 40 L adn 55% No oxygen at baseline Continue titrating oxygen Pulmonology following Bilateral flank pain CT AP from 12/04 no acute changes Patient already on Rocephin and Doxycycline Cultures still negative US renal unremarkable CT AP no acute changes PRN pain control monitor DVT prophylaxis on Xarelto Subjective Date/time seen: 12/08/24 16:59 Interval history: Complains of bilateral flank pain CT AP unremarkabel, continue PRN pain control Review of Systems Constitutional: Constitutional: Reports as per HPI and Reports no additional constitutional complaints Eyes: Eyes: Reports as per HPI and Reports no additional eye complaints ENT: Reports system reviewed and no additional complaints, except as documented and Reports Normal hearing present Cardiovascular: Cardiovascular: Reports no additional cardiovascular complaints Respiratory: Respiratory: Reports as per HPI and Reports no additional respiratory complaints Gastrointestinal: Gastrointestinal: Reports as per HPI and Reports no additional gastrointestinal complaints Musculoskeletal: Musculoskeletal: Reports no additional musculoskeletal complaints Integumentary/Breasts: Skin/Breast: Reports system reviewed and no additional complaints, except as docu Neurologic: Reports system reviewed and no additional complaints, except as documented and Reports Normal hearing present Psychiatric: Psychiatric: Reports no additional psychiatric complaints and Reports as per HPI Hematologic/Lymphatic: Hematologic/Lymphatic: Reports no additional hematologic/lymphatic complaints Allergic/Immunologic: Allergic/Immunologic: Reports no additional allergic/immunologic complaints Exam Const: General: cooperative, healthy appearing, no acute distress, well developed, awake and well nourished Nutritional Appearance: well nourished Orientation/consciousness: oriented to person, oriented to place, oriented to time and patient oriented x3 Limitations: no limitations HENMT: Head: normal to inspection, No palpable skull fracture present, normocephalic, atraumatic and abrasion Ears: hearing grossly normal bilaterally Eyes: General: appearance normal, both eyes and all related structures Alignment and Position: alignment normal Periorbital: periorbital findings normal Eyelids: eyelids normal Pupils: Equal, round and reactive pupils present EOM: EOMs intact bilaterally Neck: Neck: normal visual inspection, full ROM and no lymphadenopathy Chest: Chest palpation & inspection: normal inspection of the chest Resp: Effort & Inspection: normal respiratory effort Auscultation: clear to auscultation bilaterally Cardio: Palpation: normal PMI Rate: regular rate Rhythm: regular rhythm Heart sounds: S1 normal heart sound present and S2 normal heart sound present Peripheral pulses: Peripheral pulses 2+ throughout GI: Inspection: normal to inspection Auscultation: normal bowel sounds Rectal Exam: deferred Back/Spine/Pelvis: Cervical Spine: cervical ROM normal Skin: General skin exam: normal color Lesions: no lesions Rashes: no rashes Trauma: no lacerations or abrasions Wounds: no wounds Hair: normal Nails: normal Neuro: General: oriented to person, oriented to place, oriented to time and patient oriented x3 Cranial nerves: Yes Equal, round and reactive pupils present and Yes Normal hearing present Cognition (Neuro): normal cognition Speech: normal speech Motor exam (neuro): 5/5 motor strength present throughout Sensory Exam: normal sensation Extrem: General: normal to inspection, no calf tenderness, edema bilateral and pedal edema bilaterally pitting and 2+ Right upper extremity: normal to inspection and shoulder/upper arm Left upper extremity: normal to inspection and shoulder/upper arm Other: Pretibial edema 2+ pitting edema Psych: Appearance: grossly normal Mental Status: mental status grossly normal Speech and movement: Normal speech and movement present Affect: normal affect Attitude: cooperative Thought process: Normal thought process present Insight: Good insight present (Psych) Judgement: Good judgement present (Psych) Objective Data Vital Signs Vital Signs: Vital Signs - 24 hr 12/07/24 18:00 12/07/24 20:00 12/07/24 20:00 Temperature 100.2 F H Pulse Rate 98 95 Respiratory Rate 20 Blood Pressure 121/58 L Pulse Oximetry 96 94 Oxygen Delivery High Flow Therapy with Na Oxygen Flow Rate 40 Fraction of Inspired Oxygen 80 12/07/24 20:00 12/07/24 20:51 12/07/24 20:52 Temperature Pulse Rate 95 84 Respiratory Rate Blood Pressure Pulse Oximetry 95 Oxygen Delivery High Flow Therapy with Na Oxygen Flow Rate 40 Fraction of Inspired Oxygen 80 12/07/24 20:56 12/07/24 21:02 12/07/24 22:00 Temperature Pulse Rate 97 98 91 Respiratory Rate 18 18 Blood Pressure Pulse Oximetry Oxygen Delivery Oxygen Flow Rate Fraction of Inspired Oxygen 12/07/24 23:32 12/08/24 00:00 12/08/24 00:00 Temperature 99.4 F Pulse Rate 81 81 Respiratory Rate 22 H Blood Pressure 123/54 L Pulse Oximetry 93 93 Oxygen Delivery High Flow Therapy with Na Oxygen Flow Rate 40 Fraction of Inspired Oxygen 80 12/08/24 02:00 12/08/24 04:00 12/08/24 04:00 Temperature Pulse Rate 88 97 74 Respiratory Rate 24 H Blood Pressure 122/60 Pulse Oximetry 93 Oxygen Delivery Oxygen Flow Rate Fraction of Inspired Oxygen 12/08/24 06:00 12/08/24 07:27 12/08/24 07:27 Temperature Pulse Rate 86 83 Respiratory Rate 20 Blood Pressure Pulse Oximetry 94 Oxygen Delivery High Flow Therapy with Na Oxygen Flow Rate 40 Fraction of Inspired Oxygen 65 12/08/24 08:00 12/08/24 08:00 12/08/24 08:00 Temperature 98.7 F Pulse Rate 92 94 Respiratory Rate 24 H Blood Pressure 139/64 Pulse Oximetry 95 95 Oxygen Delivery High Flow Therapy with Na Oxygen Flow Rate 40 Fraction of Inspired Oxygen 65 12/08/24 08:40 12/08/24 10:00 12/08/24 12:00 Temperature Pulse Rate 85 87 Respiratory Rate 20 Blood Pressure Pulse Oximetry 95 Oxygen Delivery High Flow Therapy with Na Oxygen Flow Rate 40 Fraction of Inspired Oxygen 55 12/08/24 12:00 12/08/24 12:00 12/08/24 12:19 Temperature 98.2 F Pulse Rate 85 79 88 Respiratory Rate 20 20 Blood Pressure 118/66 Pulse Oximetry 91 94 Oxygen Delivery High Flow Therapy with Na Oxygen Flow Rate 40 Fraction of Inspired Oxygen 55 12/08/24 12:19 12/08/24 12:26 12/08/24 14:00 Temperature Pulse Rate 88 84 76 Respiratory Rate 20 20 Blood Pressure Pulse Oximetry Oxygen Delivery Oxygen Flow Rate Fraction of Inspired Oxygen 12/08/24 16:00 12/08/24 16:00 12/08/24 16:00 Temperature 98.0 F Pulse Rate 88 82 Respiratory Rate 22 H Blood Pressure 146/65 H Pulse Oximetry 95 95 Oxygen Delivery High Flow Therapy with Na Oxygen Flow Rate 40 Fraction of Inspired Oxygen 55 12/08/24 16:16 12/08/24 16:16 12/08/24 16:25 Temperature Pulse Rate 89 89 89 Respiratory Rate 20 20 20 Blood Pressure Pulse Oximetry 95 Oxygen Delivery High Flow Therapy with Na Oxygen Flow Rate 40 Fraction of Inspired Oxygen 55 Intake/Output Intake/Output: Intake & Output 12/05/24 12/06/24 12/07/24 12/08/24 23:59 23:59 23:59 23:59 Intake Total 1086.5 2378.8 1600 850 Output Total 800 1050 1475 1550 Balance 286.5 1328.8 125 -700 Meds/Results Medications: Active Medications Generic Name Dose Route Start Last Admin Trade Name Freq PRN Reason Stop Dose Admin Acetaminophen 500 mg 12/04/24 22:34 Acetaminophen 500 Mg Tablet PO Q6H PRN Mild Pain (1-3) or Fever Hydrocodone Bitart/Acetaminophen 1 tab 12/05/24 23:16 12/08/24 08:46 Hydrocodone/Acetaminophen (*Crx) 7.5-325 Mg Tablet PO 1 tab Q4H PRN Administration Pain Rated 4-6 Albuterol/Ipratropium 3 ml 12/06/24 12:00 12/08/24 16:14 Ipratropium 0.5 Mg/Albuterol Sulfate 2.5 Mg Ampul.Neb 3 Ml INHALATION 3 ml [id number] BRAULIO Administration Amlodipine Besylate 10 mg 12/04/24 22:40 12/07/24 20:51 Amlodipine Besylate 10 Mg Tablet PO 10 mg HS BRAULIO Administration Guaifenesin 1,200 mg 12/06/24 09:00 12/08/24 08:47 Guaifenesin 12 Hr 600 Mg Tabcr PO 1,200 mg Q12HR BRAULIO Administration Hydromorphone HCl 2 mg 12/05/24 23:17 12/08/24 10:15 Hydromorphone Hcl Inj (*Crx) 1 Mg/Ml Syr IV PUSH 2 mg Q3H PRN Administration Pain Rated 7-10 Ceftriaxone Sodium 1 gm/ 50 mls @ 100 mls/hr 12/05/24 22:00 12/07/24 21:39 Sodium Chloride IVPB 100 mls/hr Q24H BRAULIO Administration Doxycycline Hyclate 100 mg/ 100 mls @ 100 mls/hr 12/06/24 21:00 12/08/24 08:47 Sodium Chloride IVPB 12/09/24 21:59 100 mls/hr Q12H BRAULIO Administration Labetalol HCl 100 mg 12/06/24 21:00 12/08/24 08:47 Labetalol Hcl 100 Mg Tablet PO 100 mg Q12HR BRAULIO Administration Lisinopril 40 mg 12/05/24 09:00 12/08/24 08:47 Lisinopril 20 Mg Tablet PO 40 mg DAILY BRAULIO Administration Polyethylene Glycol 17 gm 12/09/24 09:00 Polyethylene Glycol 3350 17 Gm Powd.Pack PO QAM BRAULIO Rivaroxaban 15 mg 12/06/24 21:00 12/08/24 16:57 Rivaroxaban 15 Mg Tablet PO 12/27/24 08:01 15 mg BIDWM BRAULIO Administration Rivaroxaban 20 mg 12/28/24 17:00 Rivaroxaban 20 Mg Tablet PO DAILY@1700 [facility] Triamterene/Hydrochlorothiazide 1 tab 12/05/24 09:00 12/08/24 08:47 Triamterene 37.5 Mg/Hctz 25 Mg (Maxzide) Tablet PO 1 tab DAILY BRAULIO Administration Radiology Results: ITS Impressions Chest/Abdomen/Pelvis CTA 12/04/24 19:35 IMPRESSION: 1. Pulmonary emboli involving multiple basilar segmental and subsegmental pulmonary arteries in the bilateral lower lobes and possibly also in the right upper lobar and posterior segmental pulmonary arteries. No findings of right heart strain. 2. Increasing airspace disease in the bilateral lower lobes, right greater than left and in the posterior right upper lobe suspicious for pulmonary infarcts with differential including pneumonia, atelectasis or some combination thereof. 3. No acute intra-abdominal/pelvic process. 4. Diffuse hepatic steatosis. Venous Doppler Study 12/05/24 08:31 Impression: Left-sided DVT. Chest X-Ray 12/06/24 07:44 IMPRESSION: 1. Increasing opacities in bilateral mid and lower lung zones consistent with atelectasis, pneumonia and/or pulmonary infarcts likely superimposed over small bilateral pleural effusions. Renal Ultrasound 12/07/24 09:32 IMPRESSION: 1. Normal kidneys. No hydronephrosis. Abdomen/Pelvis CT 12/07/24 13:47 IMPRESSION: 1. Bibasilar pulmonary infarcts and/or pneumonia. 2. No renal stones or hydronephrosis. 3. No other acute abnormality within abdomen or pelvis. Labs Labs: Laboratory Results - last 24 hr 12/06/24 12/07/24 12/08/24 03:54 01:49 04:05 WBC RBC Hgb Hct MCV MCH MCHC RDW Plt Count MPV Immature Gran % (Auto) Neut % (Auto) Lymph % (Auto) [place] % (Auto) Eos % (Auto) Baso % (Auto) Lymph # (Auto) [place] # (Auto) Eos # (Auto) Baso # (Auto) Abs Immat Gran (auto) Absolute Neuts (auto) Absolute Nucleated RBC Nucleated RBC % Factor VIII Activity 183 H Sodium 135 L Potassium 4.1 Chloride 102 Carbon Dioxide 25 Anion Gap 8 BUN 30 H Creatinine 1.15 Estim Creat Clear Calc 136 Estimated GFR > 60 Glucose 148 H Lactic Acid 0.9 Calcium 8.2 L Magnesium 2.3 Total Bilirubin 1.0 AST 55 ALT 49 Alkaline Phosphatase 78 Total Protein 6.5 Albumin 3.2 L [id number] 360 H 12/08/24 04:08 WBC 17.7 H RBC 4.25 L Hgb 14.4 Hct 41.3 L MCV 97.2 MCH 33.9 MCHC 34.9 RDW 14.3 Plt Count 202 MPV 8.7 Immature Gran % (Auto) 0.4 Neut % (Auto) 78.0 H Lymph % (Auto) 9.3 L [place] % (Auto) 10.2 H Eos % (Auto) 1.8 Baso % (Auto) 0.3 Lymph # (Auto) 1.65 [place] # (Auto) 1.8 H Eos # (Auto) 0.3 Baso # (Auto) 0.1 Abs Immat Gran (auto) 0.07 H Absolute Neuts (auto) 13.8 H Absolute Nucleated RBC 0.000 Nucleated RBC % 0.0 Factor VIII Activity Sodium Potassium Chloride Carbon Dioxide Anion Gap BUN Creatinine Estim Creat Clear Calc Estimated GFR Glucose Lactic Acid Calcium Magnesium Total Bilirubin AST ALT Alkaline Phosphatase Total Protein Albumin [id number] Quality VTE Prophylaxis VTE prophylaxis: pharmacologic ordered
[2024-12-08] MEDS: ACETAMINOPHEN 500 MG TABLET PO (17:07)
[2024-12-08] MEDS: cefTRIAXone 1 GM in SODIUM CHLORIDE 0.9% IV 50 ML 100 ML IVPB (23:12)
[2024-12-09] VITALS (22 sets, daily range): BP systolic 131–150; BP diastolic 63–75; PULSE 73–98; RESP 14–20; TEMP 36.6–36.8; O2SAT 93–100
[2024-12-09] MEDS: MELATONIN 3 MG TABLET PO ×2 (00:35→23:36)
[2024-12-09] MEDS: HYDROcodone/acetaminophen (*CRX) 7.5-325 MG TABLET 1 TAB PO ×3 (04:05→23:35)
[2024-12-09 04:12] LABS: Hematocrit 40.9 % (42.0-52.0); Hemoglobin 14.2 g/dL (14.0-18.0); Immature Granulocyte Percent A 0.4 % (0-0.5); Lymphocytes Absolute Auto 1.46 K/mm3 (0.9-3.2); Mean Corpuscular HGB Conc 34.7 g/dl (32-36); Mean Corpuscular Hemoglobin 33.9 pg (26-34); Mean Corpuscular Volume 97.6 fl (80-100); Nucleated Red Blood Cells Absolute Auto 0.000 K/mm3 (0.0-0.012); Nucleated Red Blood Cells Perc 0.0 % (0.0-0.2); Platelet Count Result 236 k/mm3 (150-375); Red Blood Count 4.19 M/mm3 (4.6-6.20); White Blood Count 14.1 K/mm3 (4.5-10.0)
[2024-12-09 04:36] LABS: Alanine Aminotransferase 90 U/L (6-50); Albumin Level 3.5 g/dL (3.5-5.1); Alkaline Phosphatase 87 U/L (38-126); Anion Gap 8 mmol/L (4-12); Aspartate Amino Transferase 96 U/L (17-59); Bilirubin,Total 0.9 mg/dL (0.2-1.3); Blood Urea Nitrogen 23 mg/dL (9-20); Calcium 8.5 mg/dL (8.4-10.2); Carbon Dioxide 25 mmol/L (22-30); Chloride 104 mmol/L (98-107); Estimated CRCL calculation 170 ml/min; Estimated Glomerular Filt Rate > 60; Glucose 158 mg/dL (65-110); Magnesium 2.3 mg/dL (1.6-2.3); Potassium 3.8 mmol/L (3.4-5.0); Sodium 137 mmol/L (137-145); Total Protein 7.5 g/dL (6.3-8.2)
[2024-12-09] MEDS: IPRATROPIUM 0.5 MG/ALBUTEROL SULFATE 2.5 MG AMPUL.NEB 3 ML INHALATION ×2 (07:08→11:12)
[2024-12-09 07:42] LABS: NT Pro B Type Natriuretic Pept 33 pg/mL (19.9-100)
[2024-12-09 07:50] LABS: CRP 22.8 mg/dL (<1.0)
[2024-12-09 07:55] LABS: Procalcitonin 0.8 ng/mL
[2024-12-09] MEDS: LABETALOL HCL 100 MG TABLET PO ×2 (09:34→21:25)
[2024-12-09] MEDS: TRIAMTERENE 37.5 MG/HCTZ 25 MG (MAXZIDE) TABLET 1 TAB PO (09:34)
[2024-12-09] MEDS: guaiFENesin 12 HR 600 MG TABCR 1200 MG PO ×2 (09:35→21:25)
[2024-12-09] MEDS: RIVAROXABAN 15 MG TABLET PO ×2 (09:35→17:19)
[2024-12-09] MEDS: DOXYCYCLINE IV 100 MG in SODIUM CHLORIDE 0.9% IV 100 ML IVPB ×2 (09:36→21:26)
--- NOTE | 2024-12-09 10:11 | P.PNIM_ITS ---
Progress Note: A&P Assessment and Plan (1) Pneumonia: Code(s): J18.9 - Pneumonia, unspecified organism Status: Acute Assessment and Plan: SOB CT chest bilateral opacities -continue with DuoNebs. F/u Blood and sputum cultures Continue Rocephin and DOxycycline (2) Pulmonary embolus: Code(s): I26.99 - Other pulmonary embolism without acute cor pulmonale Status: Acute Assessment and Plan: With left DVT -CTA shows 1. Pulmonary emboli involving multiple basilar segmental and subsegmental pulmonary arteries in the bilateral lower lobes and possibly also in the right upper lobar and posterior segmental pulmonary arteries. No findings of right heart strain. Venous Doppler showed LLE DVT Continue Xarelto 15mg bid x 21 days, then 20 daily Monitor Discussed with Pulmonology (3) Obstructive sleep apnea syndrome: Code(s): G47.33 - Obstructive sleep apnea (adult) (pediatric) Status: Acute Assessment and Plan: -the patient is compliant with his CPAP machine at home -auto titrate CPAP. (4) Hypertension: Qualifiers: Hypertension type: essential hypertension Qualified Code(s): I10 - Essential (primary) hypertension Code(s): I10 - Essential (primary) hypertension Status: Acute Assessment and Plan: Now within normal limits Continue Amlodipine 10mg, Lisniopril 40mg, Labetalol 100mg po bid, and Triamterne and HCTZ (5) Tobacco abuse: Code(s): Z72.0 - Tobacco use Status: Acute Assessment and Plan: -we discussed the importance of smoking cessation. The patient is in agreement Plan The patient also has psoriasis and uses Skyrizi every 3 months. He stated that this clears up his psoriasis. Acute hypoxemic respiratory failure Markedly improving On HFNC 30 L and 30% No oxygen at baseline Continue titrating oxygen Discussed with Pulmonology and he will wean oxygen down to nasal cannula today Pulmonology following Bilateral flank pain CT AP from 12/04 no acute changes US renal unremarkable CT AP no acute changes PRN pain control monitor DVT prophylaxis on Xarelto PT/OT Subjective Date/time seen: 12/09/24 10:11 Interval history: Complains of bilateral flank pain Noted marked improvement, now down to 30% on HFNC I discussed with pulmonology and he will descalate to NC oxygen Review of Systems Constitutional: Constitutional: Reports as per HPI and Reports no additional constitutional complaints Eyes: Eyes: Reports as per HPI and Reports no additional eye complaints ENT: Reports system reviewed and no additional complaints, except as documented and Reports Normal hearing present Cardiovascular: Cardiovascular: Reports no additional cardiovascular complaints Respiratory: Respiratory: Reports as per HPI and Reports no additional respiratory complaints Gastrointestinal: Gastrointestinal: Reports as per HPI and Reports no additional gastrointestinal complaints Musculoskeletal: Musculoskeletal: Reports no additional musculoskeletal complaints Integumentary/Breasts: Skin/Breast: Reports system reviewed and no additional complaints, except as docu Neurologic: Reports system reviewed and no additional complaints, except as documented and Reports Normal hearing present Psychiatric: Psychiatric: Reports no additional psychiatric complaints and Reports as per HPI Hematologic/Lymphatic: Hematologic/Lymphatic: Reports no additional hematologic/lymphatic complaints Allergic/Immunologic: Allergic/Immunologic: Reports no additional allergic/immunologic complaints Exam Const: General: cooperative, healthy appearing, no acute distress, well developed, awake and well nourished Nutritional Appearance: well nourished Orientation/consciousness: oriented to person, oriented to place, oriented to time and patient oriented x3 Limitations: no limitations HENMT: Head: normal to inspection, No palpable skull fracture present, normocephalic, atraumatic and abrasion Ears: hearing grossly normal bilaterally Eyes: General: appearance normal, both eyes and all related structures Alignment and Position: alignment normal Periorbital: periorbital findings normal Eyelids: eyelids normal Pupils: Equal, round and reactive pupils present EOM: EOMs intact bilaterally Neck: Neck: normal visual inspection, full ROM and no lymphadenopathy Chest: Chest palpation & inspection: normal inspection of the chest Resp: Effort & Inspection: normal respiratory effort Auscultation: clear to auscultation bilaterally Cardio: Palpation: normal PMI Rate: regular rate Rhythm: regular rhythm Heart sounds: S1 normal heart sound present and S2 normal heart sound present Peripheral pulses: Peripheral pulses 2+ throughout GI: Inspection: normal to inspection Auscultation: normal bowel sounds Rectal Exam: deferred Back/Spine/Pelvis: Cervical Spine: cervical ROM normal Skin: General skin exam: normal color Lesions: no lesions Rashes: no rashes Trauma: no lacerations or abrasions Wounds: no wounds Hair: normal Nails: normal Neuro: General: oriented to person, oriented to place, oriented to time and patient oriented x3 Cranial nerves: Yes Equal, round and reactive pupils present and Yes Normal hearing present Cognition (Neuro): normal cognition Speech: normal speech Motor exam (neuro): 5/5 motor strength present throughout Sensory Exam: normal sensation Extrem: General: normal to inspection, no calf tenderness, edema bilateral and pedal edema bilaterally pitting and 2+ Right upper extremity: normal to inspection and shoulder/upper arm Left upper extremity: normal to inspection and shoulder/upper arm Other: Pretibial edema 2+ pitting edema Psych: Appearance: grossly normal Mental Status: mental status grossly normal Speech and movement: Normal speech and movement present Affect: normal affect Attitude: cooperative Thought process: Normal thought process present Insight: Good insight present (Psych) Judgement: Good judgement present (Psych) Objective Data Vital Signs Vital Signs: Vital Signs - 24 hr 12/08/24 12:00 12/08/24 12:00 12/08/24 12:00 Temperature 98.2 F Pulse Rate 85 79 Respiratory Rate 20 Blood Pressure 118/66 Pulse Oximetry 95 91 Oxygen Delivery High Flow Therapy with Na Oxygen Flow Rate 40 Fraction of Inspired Oxygen 55 12/08/24 12:19 12/08/24 12:19 12/08/24 12:26 Temperature Pulse Rate 88 88 84 Respiratory Rate 20 20 20 Blood Pressure Pulse Oximetry 94 Oxygen Delivery High Flow Therapy with Na Oxygen Flow Rate 40 Fraction of Inspired Oxygen 55 12/08/24 14:00 12/08/24 16:00 12/08/24 16:00 Temperature Pulse Rate 76 88 Respiratory Rate Blood Pressure Pulse Oximetry 95 Oxygen Delivery High Flow Therapy with Na Oxygen Flow Rate 40 Fraction of Inspired Oxygen 55 12/08/24 16:00 12/08/24 16:16 12/08/24 16:16 Temperature 98.0 F Pulse Rate 82 89 89 Respiratory Rate 22 H 20 20 Blood Pressure 146/65 H Pulse Oximetry 95 95 Oxygen Delivery High Flow Therapy with Na Oxygen Flow Rate 40 Fraction of Inspired Oxygen 55 12/08/24 16:25 12/08/24 17:30 12/08/24 18:00 Temperature Pulse Rate 89 82 Respiratory Rate 20 Blood Pressure Pulse Oximetry 95 Oxygen Delivery High Flow Therapy with Na Oxygen Flow Rate 40 Fraction of Inspired Oxygen 45 12/08/24 20:00 12/08/24 20:00 12/08/24 20:00 Temperature 98.6 F Pulse Rate 84 82 Respiratory Rate 20 Blood Pressure 146/69 H Pulse Oximetry 99 98 Oxygen Delivery High Flow Therapy with Na Oxygen Flow Rate 40 Fraction of Inspired Oxygen 45 12/08/24 21:05 12/08/24 21:17 12/08/24 21:26 Temperature Pulse Rate 85 90 90 Respiratory Rate 20 20 Blood Pressure Pulse Oximetry 98 Oxygen Delivery High Flow Therapy with Na Oxygen Flow Rate 30 Fraction of Inspired Oxygen 55 12/08/24 21:50 12/08/24 22:00 12/09/24 00:00 Temperature 98.2 F Pulse Rate 82 82 Respiratory Rate 20 Blood Pressure 132/67 Pulse Oximetry 96 95 Oxygen Delivery High Flow Therapy with Na Oxygen Flow Rate 40 Fraction of Inspired Oxygen 45 12/09/24 00:00 12/09/24 00:00 12/09/24 01:47 Temperature Pulse Rate 89 85 Respiratory Rate 20 Blood Pressure Pulse Oximetry 98 96 Oxygen Delivery High Flow Therapy with Na High Flow Therapy with Na Oxygen Flow Rate 30 30 Fraction of Inspired Oxygen 55 55 12/09/24 02:00 12/09/24 04:00 12/09/24 04:00 Temperature Pulse Rate 82 88 Respiratory Rate Blood Pressure Pulse Oximetry 100 Oxygen Delivery High Flow Therapy with Na Oxygen Flow Rate 30 Fraction of Inspired Oxygen 55 12/09/24 04:00 12/09/24 04:31 12/09/24 06:00 Temperature 98.3 F Pulse Rate 80 82 74 Respiratory Rate 18 20 Blood Pressure 146/73 H Pulse Oximetry 96 95 Oxygen Delivery High Flow Therapy with Na Oxygen Flow Rate 30 Fraction of Inspired Oxygen 55 12/09/24 07:08 12/09/24 07:08 12/09/24 07:21 Temperature Pulse Rate 76 79 Respiratory Rate 20 20 Blood Pressure Pulse Oximetry 97 Oxygen Delivery High Flow Therapy with Na Oxygen Flow Rate 30 Fraction of Inspired Oxygen 52 12/09/24 07:44 12/09/24 08:00 12/09/24 09:34 Temperature 97.9 F Pulse Rate 76 73 Respiratory Rate 14 Blood Pressure 134/68 Pulse Oximetry 95 95 Oxygen Delivery High Flow Therapy with Na Oxygen Flow Rate 30 Fraction of Inspired Oxygen 30 Intake/Output Intake/Output: Intake & Output 12/06/24 12/07/24 12/08/24 12/09/24 23:59 23:59 23:59 23:59 Intake Total 2378.8 1650 4020 918 Output Total 1050 1475 1850 250 Balance 1328.8 175 2170 668 Meds/Results Medications: Active Medications Generic Name Dose Route Start Last Admin Trade Name Antonioq PRN Reason Stop Dose Admin Acetaminophen 500 mg 12/04/24 22:34 12/08/24 17:07 Acetaminophen 500 Mg Tablet PO 500 mg Q6H PRN Administration Mild Pain (1-3) or Fever Hydrocodone Bitart/Acetaminophen 1 tab 12/05/24 23:16 12/09/24 09:57 Hydrocodone/Acetaminophen (*Crx) 7.5-325 Mg Tablet PO 1 tab Q4H PRN Administration Pain Rated 4-6 Albuterol/Ipratropium 3 ml 12/06/24 12:00 12/09/24 07:08 Ipratropium 0.5 Mg/Albuterol Sulfate 2.5 Mg Ampul.Neb 3 Ml INHALATION 3 ml [id number] BRAULIO Administration Amlodipine Besylate 10 mg 12/04/24 22:40 12/08/24 21:06 Amlodipine Besylate 10 Mg Tablet PO 10 mg HS BRAULIO Administration Guaifenesin 1,200 mg 12/06/24 09:00 12/09/24 09:35 Guaifenesin 12 Hr 600 Mg Tabcr PO 1,200 mg Q12HR BRAULIO Administration Hydromorphone HCl 2 mg 12/05/24 23:17 12/08/24 23:03 Hydromorphone Hcl Inj (*Crx) 1 Mg/Ml Syr IV PUSH 2 mg Q3H PRN Administration Pain Rated 7-10 Ceftriaxone Sodium 1 gm/ 50 mls @ 100 mls/hr 12/05/24 22:00 12/08/24 23:45 Sodium Chloride IVPB Infused Q24H BRAULIO Infusion Doxycycline Hyclate 100 mg/ 100 mls @ 100 mls/hr 12/06/24 21:00 12/09/24 09:36 Sodium Chloride IVPB 12/09/24 21:59 100 mls/hr Q12H BRAULIO Administration Labetalol HCl 100 mg 12/06/24 21:00 12/09/24 09:34 Labetalol Hcl 100 Mg Tablet PO 100 mg Q12HR BRAULIO Administration Lisinopril 40 mg 12/05/24 09:00 12/09/24 09:35 Lisinopril 20 Mg Tablet PO 40 mg DAILY BRAULIO Administration Melatonin 3 mg 12/08/24 23:54 12/09/24 00:35 Melatonin 3 Mg Tablet PO 3 mg HS PRN Administration Insomnia Polyethylene Glycol 17 gm 12/09/24 09:00 12/09/24 09:36 Polyethylene Glycol 3350 17 Gm Powd.Pack PO Not Given QAM [facility] Rivaroxaban 15 mg 12/06/24 21:00 12/09/24 09:35 Rivaroxaban 15 Mg Tablet PO 12/27/24 08:01 15 mg BIDWM BRAULIO Administration Rivaroxaban 20 mg 12/28/24 17:00 Rivaroxaban 20 Mg Tablet PO DAILY@1700 [facility] Triamterene/Hydrochlorothiazide 1 tab 12/05/24 09:00 12/09/24 09:34 Triamterene 37.5 Mg/Hctz 25 Mg (Maxzide) Tablet PO 1 tab DAILY [facility] Administration Radiology Results: ITS Impressions Chest/Abdomen/Pelvis CTA 12/04/24 19:35 IMPRESSION: 1. Pulmonary emboli involving multiple basilar segmental and subsegmental pulmonary arteries in the bilateral lower lobes and possibly also in the right upper lobar and posterior segmental pulmonary arteries. No findings of right heart strain. 2. Increasing airspace disease in the bilateral lower lobes, right greater than left and in the posterior right upper lobe suspicious for pulmonary infarcts with differential including pneumonia, atelectasis or some combination thereof. 3. No acute intra-abdominal/pelvic process. 4. Diffuse hepatic steatosis. Venous Doppler Study 12/05/24 08:31 Impression: Left-sided DVT. Renal Ultrasound 12/07/24 09:32 IMPRESSION: 1. Normal kidneys. No hydronephrosis. Abdomen/Pelvis CT 12/07/24 13:47 IMPRESSION: 1. Bibasilar pulmonary infarcts and/or pneumonia. 2. No renal stones or hydronephrosis. 3. No other acute abnormality within abdomen or pelvis. Chest X-Ray 12/09/24 09:01 IMPRESSION: 1. Decreasing opacities in bilateral lower lung zones which could relate to pulmonary infarcts, atelectasis, pneumonia or some combination thereof. Labs Labs: Laboratory Results - last 24 hr 12/06/24 12/06/24 12/09/24 03:54 20:02 03:53 WBC RBC Hgb Hct MCV MCH MCHC RDW Plt Count MPV Immature Gran % (Auto) Neut % (Auto) Lymph % (Auto) [place] % (Auto) Eos % (Auto) Baso % (Auto) Lymph # (Auto) [place] # (Auto) Eos # (Auto) Baso # (Auto) Abs Immat Gran (auto) Absolute Neuts (auto) Absolute Nucleated RBC Nucleated RBC % Heparin Anti-Xa Level 0.89 Factor VIII Activity 183 H Factor IX Activity 97 Sodium Potassium Chloride Carbon Dioxide Anion Gap BUN Creatinine Estim Creat Clear Calc Estimated GFR Glucose Calcium Magnesium Total Bilirubin AST ALT Alkaline Phosphatase C-Reactive Protein NT-Pro-B Natriuret Pep Total Protein Albumin Procalcitonin 0.8 12/09/24 03:54 WBC 14.1 H RBC 4.19 L Hgb 14.2 Hct 40.9 L MCV 97.6 MCH 33.9 MCHC 34.7 RDW 14.0 Plt Count 236 MPV 8.8 Immature Gran % (Auto) 0.4 Neut % (Auto) 75.1 H Lymph % (Auto) 10.3 L Webster % (Auto) 10.3 H Eos % (Auto) 3.5 Baso % (Auto) 0.4 Lymph # (Auto) 1.46 [place] # (Auto) 1.5 H Eos # (Auto) 0.5 H Baso # (Auto) 0.1 Abs Immat Gran (auto) 0.06 H Absolute Neuts (auto) 10.6 H Absolute Nucleated RBC 0.000 Nucleated RBC % 0.0 Heparin Anti-Xa Level Factor VIII Activity Factor IX Activity Sodium 137 Potassium 3.8 Chloride 104 Carbon Dioxide 25 Anion Gap 8 BUN 23 H Creatinine 0.91 Estim Creat Clear Calc 170 Estimated GFR > 60 Glucose 158 H Calcium 8.5 Magnesium 2.3 Total Bilirubin 0.9 AST 96 H ALT 90 H Alkaline Phosphatase 87 C-Reactive Protein 22.8 H NT-Pro-B Natriuret Pep 33 Total Protein 7.5 Albumin 3.5 Procalcitonin Quality VTE Prophylaxis VTE prophylaxis: pharmacologic ordered
--- NOTE | 2024-12-09 12:27 | PM.PNPUL ---
Progress Note: A&P Assessment and Plan (1) Pulmonary embolus: Code(s): I26.99 - Other pulmonary embolism without acute cor pulmonale Status: Acute Assessment and Plan: Patient with a history of unprovoked PE in 10/16/2019 treated with Xarelto for [address] angiogram was negative. Hypercoagulable workup by Hematology was negative. Patient presents now with acute bilateral PE and left popliteal and posterior tibial DVT. Patient is a tobacco user, he has psoriasis on Skyrizi, he is a tobacco user and has elevated hemoglobin at 51.2, he had a left ankle fracture on 08/29/2024 and continued meniscus knee pain limiting his mobility although he does tell me he walks 3000 steps a day. He has had no long plane rides. The patient tells me that his mother from a PE in her 30s and his mother's sisters daughter of a PE in her 50s. On 12/05/2024 patient had worsening oxygenation up to 10 L nasal cannula with saturations 89-92 and was changed to Airvo 40 L 91% FiO2 with saturations 96%. The patient tells me today his pain is better wears it was 10/10 and now it is 9/10. He says he is breathing 15% back to his normal with no phlegm or hemoptysis. I decreased him to Airvo 40 L 82% and his saturations were 93%. Lower extremity Dopplers demonstrated left popliteal and posterior tibial thrombus. Echocardiogram demonstrated LVEF 65-70, normal diastolic function, normal right ventricular size and function, normal right atrial size, there was no tricuspid regurg and no RVSP was calculated. Repeat troponin was negative. Patient had an ABG on 5 L nasal cannula with pH of 7.46/33/81. His role to was discontinued he was placed on IV heparin. Plan: patient tells me he is feeling better today. Patient is hemodynamically stable, troponin is negative x2, BNP is 25, no evidence of RV strain on a CT angiogram or his echocardiogram. Agree with IV heparin at this time given his worsening oxygenation he may require procedures in the future and will make sure he can tolerate anticoagulation at this time. Patient may have a genetic component to his PE-DVT and I will complete hypercoagulable workup with anticardiolipin IgG and IgM, beta 2 glycoprotein IgG, factor 9 activity, factor 8 activity, factor 10 activity, MTHFR mutation. Patient has worsening hypoxia which may be related to his PE and or pneumonia. Currently he is requiring Airvo 40 L 82% with saturations 93%. 12/06/2024: Overall the patient tells me he feels better. He states his breathing is 20% back to his normal. He still has sharp pleuritic chest pain graded as 9/10 worse with deep breathing and movement. He is making more clear phlegm today. He denies hemoptysis. He had a fever to 38.1 last night at 11:30 p.m. when I enter the room he was on high-flow 40 L 80% with saturations 93%. I decreased him to 40 L and 75% and after 11 minutes saturations were 91%. His white blood cell count is 18.6, his creatinine is 1.38, his PTT is 55.3. Yesterday was positive 286 mL. Plan: Slow clinical improvement. Continue with IV heparin. Fever may be related to DVT-PE and or pneumonia. Goal saturation greater than 90%, wean FiO2 as tolerated. Hypercoagulable workup sent. Pulmonary inpatient consultative services will resume on 12/09/2024. Call with questions. 12/09/2024. Patient tells me he is feeling much better. States he is 40% back to his normal. His pain is now rated as 4/10. He denies cough, phlegm or hemoptysis. He is walking better around the room. When I enter the room he was on Airvo 30 L and 31% FiO2 with saturations 95%. I changed him to nasal cannula oxygen and decreased him sequentially down to 3 L with saturations 93%. White blood cell count 14.1, creatinine 0.91. CRP is unchanged from 12/05/2024 at 23 to a value of 22.8. BNP is 33. Procalcitonin has increased from 0.3 on 12/05/2024 to 0.8. Chest x-ray today showed improved infiltrates in the lower lobes compared with 12/06/2024. Plan: Patient now on Rivaroxaban 15 mg p.o. b.i.d. He has had no bleeding complications. Discussed with Dr. Yeung (2) Pneumonia: Code(s): J18.9 - Pneumonia, unspecified organism Status: Acute Assessment and Plan: Patient presents with 3 day history of fatigue, worsening shortness of breath, 1 day worsening chills with sweats and pleuritic pain. His white blood cell count was 17.9, and a CT angiogram of the chest showed increased bibasilar infiltrates compared to 12/03/2024. Patient tells me that the DuoNebs to help him take deeper breaths. 12/05/24: Plan: Patient may have a pneumonia and agree with ceftriaxone and doxycycline at this time. His COVID, influenza, RSV RT PCR assay was negative. I will send a respiratory pathogen panel, urine for Legionella antigen, urine for pneumococcal antigen and serum mycoplasma IgM. Sputum culture has been ordered. Blood cultures are pending. I have ordered procalcitonin, CRP. Patient has no history of asthma or COPD but states that the DuoNebs help him take deeper breaths and will continue these Q 6 hours. 12/06/24: He had a fever to 38.1 last night at 11:30 p.m. when I enter the room he was on high-flow 40 L 80% with saturations 93%. I decreased him to 40 L and 75% and after 11 minutes saturations were 91%. His white blood cell count is 18.6, his creatinine is 1.38, Chest x-ray today with decreased lung volumes and increased bilateral mid and lower lung infiltrates. Plan: Patient is morbidly obese and laying in bed. Decreased lung volumes on chest x-ray today. I will add EzPAP q.i.d.. Patient states the nebulized treatments are helping him but once to administer them during the day and will change to q.4 hours while awake. Has some difficulty expectorating and will add guaifenesin 1200 p.o. b.i.d.. Respiratory pathogen panel, urine for Legionella antigen, urine for pneumococcal antigen and mycoplasma IgM all pending. Blood cultures pending. Sputum culture has been ordered 12/09/24: Patient is afebrile. Leukocytosis persists but is improving. Chest x-ray is improved, oxygenation has improved. Plan: Patient has improved with treatment for bacterial infection as well as PE. He says the DuoNebs are not helping him and I will discontinue. Continue ceftriaxone, day 6 and doxycycline, day 5. (3) Hypoxic respiratory failure: Code(s): J96.91 - Respiratory failure, unspecified with hypoxia Status: Acute Assessment and Plan: 12/04/2024 ABG on 5 L nasal cannula 7.46/33/81. 12/05/2024 ABG on 6 L nasal cannula pH 7.40/43/57. There is no evidence of acute or chronic hypercarbic respiratory failure. 12/04 18:15 Room air, sats 91% then 83% required 5 L. 12/04 23:15 5 L NC, sats 94% 12/05 11:45 10 L NC, sats 92% 12/05 15:00 Airvo 40 L, 82%, sats 93% 12/05 20:00 Airvo 40 L, 83%, sats 92% 12/06 08:30 Aivo 40 L, 75%, sats 91 12/07 08:00 Aivo 40 L, 88%, sats 96 12/08 08:00 Aivo 40 L, 65%, sats 95 12/09 08:00 Aivo 30 L, 30%, sats 95 12/09 11:00 3 L NC, sats 94% 12/05/24: Patient has worsening hypoxia which may be related to his PE and or pneumonia. Currently he is requiring Airvo 40 L 82% with saturations 93%. 12/06/24: Minimal improvement in oxygenation over the last 24 hours. Goal saturation greater than 90%, wean FiO2 as tolerated. Will get out of bed to chair today, will start EzPAP treatment today. 12/09/24: Continue EzPAP, goal saturation 90%, wean as tolerated. (4) Obstructive sleep apnea syndrome: Code(s): G47.33 - Obstructive sleep apnea (adult) (pediatric) Status: Acute Assessment and Plan: Regarding his obstructive sleep apnea patient tells me he had a home sleep study 4-5 years ago and was told he had severe obstructive sleep apnea was prescribed auto PAP 4-20 by his PCP. He ended up buying the machine from [employer] and now buys his supplies off of [employer]. He uses a nasal mask with and uses the machine every night with good clinical benefit. I have a download from 11/05/2024 through 12/04/2024 from [employer]. He is on AutoSet 4-20. Usage days greater than or equal to 4 hours is 97%. Average usage on days used is 7 hours and 3 minutes. AHI 0.3. Apnea index 0.2, hypopnea index 0.1, central apnea index 0.0. Median pressure is 11.4. Ninety-fifth percentile pressure is 14.0. Maximum pressure is 15.6. Median leak is 4.2. Ninety-fifth percentile leak is 27.2. Maximum leak is 46.5. I interpret this download as excellent compliance, adequate pressures and high leak. 12/05/24: Patient was ordered hospital auto PAP but this machine can only handle 6 L nasal cannula oxygen. I brought a V 60 machine to his room and placed him on CPAP 10 with 80% FiO2 and he said that this was too strong and I decreased him to CPAP 6 and he said that this felt comparable to his home machine. I then trialed the patient on AVAPS with a rate of 14, tidal volume 450, EPAP 4, minimal inspiratory pressure 5, maximal inspiratory pressure 25 and adjusted the flow rates to comfort with a rise of 5 and inspiratory time of 1.2 and he could not tolerate this mode. Plan: [facility] patient should wear V 60 with CPAP 6 and 70% FiO2. If he cannot tolerate this he can be returned to the Airvo. 12/06/24: Patient attempt to wear the hospital CPAP 6 with a fullface mask last night but could not tolerate this as the pressures were too much. Respiratory therapy decreased his CPAP but the patient still could not tolerate this. Plan: Eventually patient will be placed on his home AutoSet 4-20 once his oxygenation improves. 12/09/24: I spoke to the was in the room and she will bring his home CPAP in [facility]. Plan: : Place on home AutoSet 4-20 and 2 L bleed in. I will obtain overnight oximetry on these settings. (5) Tobacco abuse: Code(s): Z72.0 - Tobacco use Status: Acute Assessment and Plan: Patient smokes 1 pack per day from age 18 for total of 26 pack years. Patient does not check his saturations at home but does have erythrocytosis. Previous workup showed a negative JAK2 mutation. Current hemoglobin is 17.8 and hematocrit is 51.2. Of note, white blood cell count prior to this admission on 6 different occasions had ranged from 11.6 to 14.3 between 10/23/2018 and 12/27/2020. patient with a history of leukocytosis and his BCR-ABL translocation test was negative per Oncology on 01/13/2020. 12/05/24: plan: Will follow hematocrit. At this time do not feel he needs a phlebotomy. Smoking cessation counseling was provided. 12/06/24: Hemoglobin 16.4, hematocrit 47.0. Will follow. 12/09/24: Hemoglobin 14.2, hematocrit 40.9. Will follow off of cigarettes since admission and on adequate oxygenation. Subjective Date/time seen: 12/09/24 12:27 Interval history: 10/04/2024: This is a new pulmonary consult for pulmonary embolism and hypoxic respiratory failure 44-year-old man with a history of hypertension, psoriasis, PE on 10/16/2019, severe obstructive sleep apnea on home auto PAP 4-20. regarding patient's prior PE on 10/16/2019 this was an unprovoked PE in the right basilar lower lobe by CT angiogram. He was treated with Xarelto for 3 months. He was seen by Hematology who did a hypercoagulable workup all off of anticoagulation for 1 week which was negative. He has been off anticoagulation since 01/2020. Regarding his obstructive sleep apnea patient tells me he had a home sleep study 4-5 years ago and was told he had severe obstructive sleep apnea was prescribed auto PAP 4-20 by his PCP. He ended up buying the machine from [employer] and now buys his supplies off of [employer]. He uses a nasal mask with and uses the machine every night with good clinical benefit. I have a download from 11/05/2024 through 12/04/2024 from [employer]. He is on AutoSet 4-20. Usage days greater than or equal to 4 hours is 97%. Average usage on days used is 7 hours and 3 minutes. AHI 0.3. Apnea index 0.2, hypopnea index 0.1, central apnea index 0.0. Median pressure is 11.4. Ninety-fifth percentile pressure is 14.0. Maximum pressure is 15.6. Median leak is 4.2. Ninety-fifth percentile leak is 27.2. Maximum leak is 46.5. I interpret this download as excellent compliance, adequate pressures and high leak. On 08/29/2024 the patient fell and fractured his left ankle and tore his left meniscus. He was placed in a boot and the ankle healed but he still has continued knee pain. prior to this injury he would walk 40,000 steps. After this injury he was placed on light duty and is currently walking 3000 steps. On 11/27/2024 the patient noticed that his left leg was more swollen than usual. On 12/01/2024 the patient was watching football in his usual state of health. On 12/02/2024 the patient underwent physical therapy for his leg and said that he felt tired and had some dyspnea on exertion. He denied fever, chills, rigors, phlegm or hemoptysis. On 12/03 the patient had worsening shortness of breath and dyspnea on exertion, developed right-sided pleuritic chest pain and started producing a minimal amount of phlegm. he presented to the emergency room and denied shortness of breath. His blood pressure is 143/88, heart rate 91, respirations 17, saturations on 2 L were 96. White blood cell count was 13.7 creatinine was 0.8. He had a CT angiogram of the chest that had poor contrast timing and was indeterminate for PE. Patient was treated for PE and sent home on Xarelto 15 mg p.o. b.i.d. for 21 days then 20 q.day following. He was told to come back if his symptoms worsened. On 12/04/2024 the patient had sweats, chills, worse right-sided and now left-sided pain And presented to the emergency department. His blood pressure is 160/98, his heart rate 102, respirations 22, room air saturations were 91%. His white blood cell count was 17.9, his creatinine was 0.9, his BNP was 25, his troponin was negative, his COVID influenza RSV RT PCR assay were negative. CT angiogram of the chest abdomen and pelvis demonstrated multiple basilar segmental and subsegmental pulmonary arteries in the bilateral lower lobes and possibly also in the right upper lobar and posterior segmental pulmonary arteries. No findings of right heart strain. Increasing airspace disease in the bilateral lower lobes, right greater than left and in the posterior right upper lobe suspicious for pulmonary infarcts with differential including pneumonia, atelectasis or some combination thereof. patient was started on Xarelto 15 mg p.o. b.i.d., ceftriaxone, azithromycin and given 1 dose of Lasix. Patient was increased to 5 L nasal cannula at 11:15 p.m.. On 12/05/2024 patient had worsening oxygenation up to 10 L nasal cannula with saturations 89-92 and was changed to Airvo 40 L 91% FiO2 with saturations 96%. The patient tells me today his pain is better wears it was 10/10 and now it is 9/10. He says he is breathing 15% back to his normal with no phlegm or hemoptysis. I decreased him to Airvo 40 L 82% and his saturations were 93%. Lower extremity Dopplers demonstrated left popliteal and posterior tibial thrombus. Echocardiogram demonstrated LVEF 65-70, normal diastolic function, normal right ventricular size and function, normal right atrial size, there was no tricuspid regurg and no RVSP was calculated. Repeat troponin was negative. Patient had an ABG on 5 L nasal cannula with pH of 7.46/33/81. His role to was discontinued he was placed on IV heparin. 12/06/2024: Overall the patient tells me he feels better. He states his breathing is 20% back to his normal. He still has sharp pleuritic chest pain graded as 9/10 worse with deep breathing and movement. He is making more clear phlegm today. He denies hemoptysis. He had a fever to 38.1 last night at 11:30 p.m. when I enter the room he was on high-flow 40 L 80% with saturations 93%. I decreased him to 40 L and 75% and after 11 minutes saturations were 91%. His white blood cell count is 18.6, his creatinine is 1.38, his PTT is 55.3. Yesterday was positive 286 mL. Chest x-ray today with decreased lung volumes and increased bilateral mid and lower lung infiltrates. pulmonary inpatient services will resume 12/09/2024. 12/09/2024. Patient tells me he is feeling much better. States he is 40% back to his normal. His pain is now rated as 4/10. He denies cough, phlegm or hemoptysis. He is walking better around the room. When I enter the room he was on Airvo 30 L and 31% FiO2 with saturations 95%. I changed him to nasal cannula oxygen and decreased him sequentially down to 3 L with saturations 93%. White blood cell count 14.1, creatinine 0.91. CRP is unchanged from 12/05/2024 at 23 to a value of 22.8. BNP is 33. Procalcitonin has increased from 0.3 on 12/05/2024 to 0.8. Chest x-ray today showed improved infiltrates in the lower lobes compared with 12/06/2024. DATA: 12/09/24: EXAMINATION: XR chest 1V portable INDICATION: Pulmonary embolism COMPARISON: Chest radiograph dated 12/06/[address] dated 12/04/2024 FINDINGS: Improved aeration at the bilateral lung bases with some persistent patchy and bandlike opacities in the lower lung zones which could represent pulmonary infarct, atelectasis, pneumonia or some combination thereof. No pleural effusion or pneumothorax. Heart size is normal. IMPRESSION: 1. Decreasing opacities in bilateral lower lung zones which could relate to pulmonary infarcts, atelectasis, pneumonia or some combination thereof. 12/05/24: Echo Summary 1. Definity contrast administered improved wall motion interpretation. 2. Left ventricular chamber dimension is normal. 3. Left ventricular systolic function is hyperdynamic, estimated at 65-70. 4. There is mild concentric increased left ventricular wall thickness. 5. The left ventricular diastolic function is normal. Right Ventricle Right ventricular chamber dimension is normal. Right ventricular systolic function is normal. Right Atria Right atrial chamber dimension is normal. No TR, no RVSP obtained 12/05/24: EXAMINATION: US venous doppler [facility], 12/05/2024 7:45 CDT HISTORY: pe and edema to legs COMPARISON: None Technique: Hartley-scale and color Doppler images were attempted of the lower saphenofemoral junction, common femoral vein,superficial femoral vein, proximal deep femoral vein, proximal deep femoral vein, popliteal vein and posterior tibial veins. Findings: Deep Venous System:There is a thrombus with diminished flow in the left popliteal and posterior tibial veins, the remaining visualized deep venous system is unremarkable Superficial Venous SystemNo superficial thrombophlebitis. Soft tissues: Soft tissues are unremarkable. Impression: Left-sided DVT. 12/04/24: EXAMINATION: CTA chest PE abdomen pel INDICATION: Shortness of breath COMPARISON: None FINDINGS: Chest: Again seen is suboptimal contrast opacification of the pulmonary arteries which limits evaluation some of the smaller subsegmental pulmonary arteries. There is nonetheless sufficient contrast to definitively identified pulmonary emboli in the several of the basilar segmental and subsegmental pulmonary arteries in the bilateral lower lobes. Decreased attenuation in the right upper lobar and posterior segmental pulmonary arteries is also suspicious for pulmonary embolism however there is some streak artifact from adjacent dense contrast in the superior vena cava which decreases specificity. Patchy consolidation and some surrounding groundglass opacities in the right lower lobe which along with a small peripheral small region of peripheral consolidation in the posterior segment right upper lobe with central groundglass opacity are suspicious for secondary pulmonary infarcts with differential including pneumonia. Consolidation at the basilar aspect of the lingula and bandlike opacity extension across the basilar left lower lobe with similar differential also including atelectasis. Tiny right pleural effusion. Heart size is normal. No leftward bowing of the ventricular septum to suggest right heart strain. No pericardial effusion. Thoracic aorta is normal in caliber with no dissection. No pathologically enlarged thoracic lymphadenopathy. Mild bilateral gynecomastia. Moderate lower thoracic spondylosis. Chronic appearing minimal to mild anterior wedging at T6-T12. Abdomen/pelvis: Diffuse hepatic steatosis with focal sparing along the gallbladder fossa. New small amount of likely vicariously excreted contrast related to CT study from one day prior which layers dependently in the otherwise normal gallbladder. Spleen, pancreas, bilateral adrenal glands and kidneys are normal. Bladder is normal. Bowels including the appendix are normal. No free intraperitoneal gas or fluid. No pathologically enlarged abdominal or pelvic lymphadenopathy. Moderate lumbosacral spondylosis with mild spondylosis more cephalad lumbar spine. IMPRESSION: 1. Pulmonary emboli involving multiple basilar segmental and subsegmental pulmonary arteries in the bilateral lower lobes and possibly also in the right upper lobar and posterior segmental pulmonary arteries. No findings of right heart strain. 2. Increasing airspace disease in the bilateral lower lobes, right greater than left and in the posterior right upper lobe suspicious for pulmonary infarcts with differential including pneumonia, atelectasis or some combination thereof. 3. No acute intra-abdominal/pelvic process. 4. Diffuse hepatic steatosis. 12/27/2020: EXAMINATION: CTA chest PE protocol DATE: 12/27/2020 14:39 INDICATION: Shortness of breath. Prior pulmonary embolus and. TECHNIQUE: Computed tomography (CT) pulmonary angiogram of the chest was performed with 200 mL Omnipaque-350 intravenous contrast. Additional 3D reconstructions utilizing coronal maximum intensity projection (MIP) were performed. Automated exposure control and iterative reconstruction technique were employed. The dose-length product was 1909.70 mGy-cm. COMPARISON: 10/30/2020 FINDINGS: Suboptimal contrast opacification of the pulmonary arteries on both initial and repeat imaging. There is mild streak artifact from dense contrast in the superior vena cava and right atrium. Moderate to severe scattered respiratory motion artifact most prominent in the lower lung zones renders assessment in the subsegmental pulmonary arteries is essentially nondiagnostic. Mild decreased sensitivity in the segmental pulmonary arteries, moderately decreased sensitivity in the smaller subsegmental pulmonary arteries in the mid and upper lung zones. No pulmonary embolism. Small right pleural effusion. There is consolidation in the right lower lobe with significant corresponding volume loss and favor atelectasis over pneumonia. Additional smaller regions of consolidation similarly more likely atelectasis than pneumonia in the left lower lobe, lingula and mild discoid atelectasis in the right middle lobe along the minor fissure. Heart size is normal. No pericardial effusion. Thoracic aorta is normal in caliber with no dissection. No pathologically enlarged thoracic lymphadenopathy. Diffuse hepatic steatosis. Mild anterior wedging of a few lower thoracic vertebral bodies. Mild thoracic spondylosis. IMPRESSION: 1. No evident pulmonary embolism. Evaluation is however significantly limited by suboptimal contrast opacification of the pulmonary arteries and prominent motion artifact. 2. Regions of consolidation in the bilateral lower lungs most prominent in the right lower lobar there is corresponding volume loss and favor atelectasis over pneumonia. 3. Small right pleural effusion. 4. Diffuse hepatic steatosis. 01/23/2020 EXAMINATION: CTA chest PE protocol EXAM DATE: 01/23/2020 15:00 INDICATION: Fatigue. Pulmonary embolus in follow-up. TECHNIQUE: Spiral CTA of the chest (pulmonary arteries) was performed with 200 cc Omnipaque 350 intravenous contrast injection. (Patient was injected twice due to poor pulmonary arterial opacification on 1st scan) Images were acquired during the pulmonary arterial phase. Coronal maximum intensity projection 3D-reconstructions were created by the technologist on dedicated workstation. Axial, coronal and sagittal reformatted images were reviewed. The dose-length product (DLP) for this examination was 2166.15 mGy-cm. The exposure was tailored according to patient size (auto mA exposure control), and iterative reconstruction (ASIR) was used as additional dose reduction technique. Comparison is made to prior examination from 10/16/2019. FINDINGS: There are no pulmonary emboli in the 1st through 3rd order (central and interlobar) pulmonary arteries. Some loss of attenuation in the segmental pulmonary arteries due to respiratory motion, but no intraluminal filling defects suspected. No thoracic aortic dissection. Subsegmental right basilar atelectasis. There are no pleural or pericardial effusions. Tracheobronchial tree is patent. There is no mediastinal, hilar or axillary lymphadenopathy. There is no pneumothorax. Heart normal in size. There is mild coronary arterial calcification, arterial sclerosis. There is hepatic steatosis. There is thoracic spondylosis without osteoblastic or osteolytic lesions identified. Compared to prior study, can't identify the suspected right lower lobe segmental segment. Previously seen small right pleural effusion has resolved, with improvement in the right basilar dependent atelectasis. IMPRESSION: 1. Probable resolution of previously seen segmental pulmonary embolism. 2. Right basilar subsegmental atelectasis. 11/02/2018: EXAMINATION: CTA CHEST (PULMONARY ART) DATE: 11/02/2018 16:49 INDICATION: Hemoptysis. COMPARISON: Chest 2 views 11/02/2018 FINDINGS: The lungs demonstrate minimal atelectasis. No pleural effusion. The heart size is normal. There are coronary artery calcifications. No pericardial effusion. The main pulmonary artery is enlarged, consistent with pulmonary arterial hypertension. There is no pulmonary embolus. There is mild thoracic spondylosis. There is mild chronic anterior wedging of multiple lower thoracic vertebral bodies. IMPRESSION: 1. No pulmonary embolus. 2. Enlargement main pulmonary artery, consistent with pulmonary arterial hypertension. Review of Systems Constitutional: Constitutional: Reports no additional constitutional complaints Eyes: Eyes: Reports no additional eye complaints ENT: Reports system reviewed and no additional complaints, except as documented Cardiovascular: Cardiovascular: Reports no additional cardiovascular complaints Respiratory: Respiratory: Reports no additional respiratory complaints Gastrointestinal: Gastrointestinal: Reports no additional gastrointestinal complaints Musculoskeletal: Musculoskeletal: Reports no additional musculoskeletal complaints Neurologic: Reports system reviewed and no additional complaints, except as documented Psychiatric: Psychiatric: Reports no additional psychiatric complaints Endocrine: Endocrine: Reports no additional endocrine complaints Hematologic/Lymphatic: Hematologic/Lymphatic: Reports no additional hematologic/lymphatic complaints Allergic/Immunologic: Allergic/Immunologic: Reports no additional allergic/immunologic complaints Exam Const: General: cooperative, comfortable and no acute distress Orientation/consciousness: oriented to person, oriented to place and oriented to time Other: obese HENMT: Head: normal to inspection Ears: hearing grossly normal bilaterally Eyes: General: appearance normal, both eyes and all related structures Neck: Neck: normal visual inspection Chest: Chest palpation & inspection: normal inspection of the chest Resp: Effort & Inspection: normal respiratory effort and able to speak in complete sentences Auscultation: no crackles, no rales, no rhonchi, no wheezes and diminished lung sounds Other: obese Cardio: Jugular venous distension: no JVD GI: Inspection: normal to inspection Skin: General skin exam: normal color Neuro: General: oriented to person, oriented to place and oriented to time Extrem: General: normal to inspection Other: Left lower extremity swelling greater than right. Psych: Appearance: grossly normal Objective Data Vital Signs Vital Signs: Vital Signs - 24 hr 12/08/24 14:00 12/08/24 16:00 12/08/24 16:00 Temperature Pulse Rate 76 88 Respiratory Rate Blood Pressure Pulse Oximetry 95 Oxygen Delivery High Flow Therapy with Na Oxygen Flow Rate 40 Fraction of Inspired Oxygen 55 12/08/24 16:00 12/08/24 16:16 12/08/24 16:16 Temperature 36.7 C Pulse Rate 82 89 89 Respiratory Rate 22 H 20 20 Blood Pressure 146/65 H Pulse Oximetry 95 95 Oxygen Delivery High Flow Therapy with Na Oxygen Flow Rate 40 Fraction of Inspired Oxygen 55 12/08/24 16:25 12/08/24 17:30 12/08/24 18:00 Temperature Pulse Rate 89 82 Respiratory Rate 20 Blood Pressure Pulse Oximetry 95 Oxygen Delivery High Flow Therapy with Na Oxygen Flow Rate 40 Fraction of Inspired Oxygen 45 12/08/24 20:00 12/08/24 20:00 12/08/24 20:00 Temperature 37.0 C Pulse Rate 84 82 Respiratory Rate 20 Blood Pressure 146/69 H Pulse Oximetry 99 98 Oxygen Delivery High Flow Therapy with Na Oxygen Flow Rate 40 Fraction of Inspired Oxygen 45 12/08/24 21:05 12/08/24 21:17 12/08/24 21:26 Temperature Pulse Rate 85 90 90 Respiratory Rate 20 20 Blood Pressure Pulse Oximetry 98 Oxygen Delivery High Flow Therapy with Na Oxygen Flow Rate 30 Fraction of Inspired Oxygen 55 12/08/24 21:50 12/08/24 22:00 12/09/24 00:00 Temperature 36.8 C Pulse Rate 82 82 Respiratory Rate 20 Blood Pressure 132/67 Pulse Oximetry 96 95 Oxygen Delivery High Flow Therapy with Na Oxygen Flow Rate 40 Fraction of Inspired Oxygen 45 12/09/24 00:00 12/09/24 00:00 12/09/24 01:47 Temperature Pulse Rate 89 85 Respiratory Rate 20 Blood Pressure Pulse Oximetry 98 96 Oxygen Delivery High Flow Therapy with Na High Flow Therapy with Na Oxygen Flow Rate 30 30 Fraction of Inspired Oxygen 55 55 12/09/24 02:00 12/09/24 04:00 12/09/24 04:00 Temperature Pulse Rate 82 88 Respiratory Rate Blood Pressure Pulse Oximetry 100 Oxygen Delivery High Flow Therapy with Na Oxygen Flow Rate 30 Fraction of Inspired Oxygen 55 12/09/24 04:00 12/09/24 04:31 12/09/24 06:00 Temperature 36.8 C Pulse Rate 80 82 74 Respiratory Rate 18 20 Blood Pressure 146/73 H Pulse Oximetry 96 95 Oxygen Delivery High Flow Therapy with Na Oxygen Flow Rate 30 Fraction of Inspired Oxygen 55 12/09/24 07:08 12/09/24 07:08 12/09/24 07:21 Temperature Pulse Rate 76 79 Respiratory Rate 20 20 Blood Pressure Pulse Oximetry 97 Oxygen Delivery High Flow Therapy with Na Oxygen Flow Rate 30 Fraction of Inspired Oxygen 52 12/09/24 07:44 12/09/24 08:00 12/09/24 08:00 Temperature 36.6 C Pulse Rate 76 Respiratory Rate 14 Blood Pressure 134/68 Pulse Oximetry 95 95 95 Oxygen Delivery High Flow Therapy with Na High Flow Therapy with Na Oxygen Flow Rate 30 30 Fraction of Inspired Oxygen 30 30 12/09/24 08:00 12/09/24 09:34 12/09/24 10:00 Temperature Pulse Rate 78 73 82 Respiratory Rate Blood Pressure Pulse Oximetry Oxygen Delivery Oxygen Flow Rate Fraction of Inspired Oxygen 12/09/24 11:12 12/09/24 11:12 12/09/24 11:23 Temperature Pulse Rate 74 78 Respiratory Rate 16 16 Blood Pressure Pulse Oximetry 94 Oxygen Delivery High Flow Nasal Cannula Oxygen Flow Rate 3 Fraction of Inspired Oxygen 12/09/24 12:00 Temperature 36.6 C Pulse Rate 73 Respiratory Rate 16 Blood Pressure 141/70 H Pulse Oximetry 97 Oxygen Delivery Oxygen Flow Rate Fraction of Inspired Oxygen Intake/Output Intake/Output: Intake & Output 12/06/24 12/07/24 12/08/24 12/09/24 23:59 23:59 23:59 23:59 Intake Total 2378.8 1650 4020 918 Output Total 1050 1475 1850 250 Balance 1328.8 175 2170 668 Meds/Results Medications: Active Medications Generic Name Dose Route Start Last Admin Trade Name Freq PRN Reason Stop Dose Admin Acetaminophen 500 mg 12/04/24 22:34 12/08/24 17:07 Acetaminophen 500 Mg Tablet PO 500 mg Q6H PRN Administration Mild Pain (1-3) or Fever Hydrocodone Bitart/Acetaminophen 1 tab 12/05/24 23:16 12/09/24 09:57 Hydrocodone/Acetaminophen (*Crx) 7.5-325 Mg Tablet PO 1 tab Q4H PRN Administration Pain Rated 4-6 Albuterol/Ipratropium 3 ml 12/06/24 12:00 12/09/24 11:12 Ipratropium 0.5 Mg/Albuterol Sulfate 2.5 Mg Ampul.Neb 3 Ml INHALATION 3 ml [id number] BRAULIO Administration Amlodipine Besylate 10 mg 12/04/24 22:40 12/08/24 21:06 Amlodipine Besylate 10 Mg Tablet PO 10 mg HS BRAULIO Administration Guaifenesin 1,200 mg 12/06/24 09:00 12/09/24 09:35 Guaifenesin 12 Hr 600 Mg Tabcr PO 1,200 mg Q12HR BRAULIO Administration Hydromorphone HCl 2 mg 12/05/24 23:17 12/08/24 23:03 Hydromorphone Hcl Inj (*Crx) 1 Mg/Ml Syr IV PUSH 2 mg Q3H PRN Administration Pain Rated 7-10 Ceftriaxone Sodium 1 gm/ 50 mls @ 100 mls/hr 12/05/24 22:00 12/08/24 23:45 Sodium Chloride IVPB Infused Q24H BRAULIO Infusion Doxycycline Hyclate 100 mg/ 100 mls @ 100 mls/hr 12/06/24 21:00 12/09/24 09:36 Sodium Chloride IVPB 12/09/24 21:59 100 mls/hr Q12H BRAULIO Administration Labetalol HCl 100 mg 12/06/24 21:00 12/09/24 09:34 Labetalol Hcl 100 Mg Tablet PO 100 mg Q12HR BRAULIO Administration Lisinopril 40 mg 12/05/24 09:00 12/09/24 09:35 Lisinopril 20 Mg Tablet PO 40 mg DAILY BRAULIO Administration Melatonin 3 mg 12/08/24 23:54 12/09/24 00:35 Melatonin 3 Mg Tablet PO 3 mg HS PRN Administration Insomnia Polyethylene Glycol 17 gm 12/09/24 09:00 12/09/24 09:36 Polyethylene Glycol 3350 17 Gm Powd.Pack PO Not Given [facility] Rivaroxaban 15 mg 12/06/24 21:00 12/09/24 09:35 Rivaroxaban 15 Mg Tablet PO 12/27/24 08:01 15 mg BIDWM BRAULIO Administration Rivaroxaban 20 mg 12/28/24 17:00 Rivaroxaban 20 Mg Tablet PO DAILY@1700 [facility] Triamterene/Hydrochlorothiazide 1 tab 12/05/24 09:00 12/09/24 09:34 Triamterene 37.5 Mg/Hctz 25 Mg (Maxzide) Tablet PO 1 tab DAILY BRAULIO Administration Radiology Results: ITS Impressions Chest/Abdomen/Pelvis CTA 12/04/24 19:35 IMPRESSION: 1. Pulmonary emboli involving multiple basilar segmental and subsegmental pulmonary arteries in the bilateral lower lobes and possibly also in the right upper lobar and posterior segmental pulmonary arteries. No findings of right heart strain. 2. Increasing airspace disease in the bilateral lower lobes, right greater than left and in the posterior right upper lobe suspicious for pulmonary infarcts with differential including pneumonia, atelectasis or some combination thereof. 3. No acute intra-abdominal/pelvic process. 4. Diffuse hepatic steatosis. Venous Doppler Study 12/05/24 08:31 Impression: Left-sided DVT. Renal Ultrasound 12/07/24 09:32 IMPRESSION: 1. Normal kidneys. No hydronephrosis. Abdomen/Pelvis CT 12/07/24 13:47 IMPRESSION: 1. Bibasilar pulmonary infarcts and/or pneumonia. 2. No renal stones or hydronephrosis. 3. No other acute abnormality within abdomen or pelvis. Chest X-Ray 12/09/24 09:01 IMPRESSION: 1. Decreasing opacities in bilateral lower lung zones which could relate to pulmonary infarcts, atelectasis, pneumonia or some combination thereof. Labs Labs: Laboratory Results - last 24 hr 12/06/24 12/06/24 12/09/24 03:54 20:02 03:53 WBC RBC Hgb Hct MCV MCH MCHC RDW Plt Count MPV Immature Gran % (Auto) Neut % (Auto) Lymph % (Auto) [place] % (Auto) Eos % (Auto) Baso % (Auto) Lymph # (Auto) [place] # (Auto) Eos # (Auto) Baso # (Auto) Abs Immat Gran (auto) Absolute Neuts (auto) Absolute Nucleated RBC Nucleated RBC % Heparin Anti-Xa Level 0.89 Factor VIII Activity 183 H Factor IX Activity 97 Sodium Potassium Chloride Carbon Dioxide Anion Gap BUN Creatinine Estim Creat Clear Calc Estimated GFR Glucose Calcium Magnesium Total Bilirubin AST ALT Alkaline Phosphatase C-Reactive Protein NT-Pro-B Natriuret Pep Total Protein Albumin Procalcitonin 0.8 12/09/24 03:54 WBC 14.1 H RBC 4.19 L Hgb 14.2 Hct 40.9 L MCV 97.6 MCH 33.9 MCHC 34.7 RDW 14.0 Plt Count 236 MPV 8.8 Immature Gran % (Auto) 0.4 Neut % (Auto) 75.1 H Lymph % (Auto) 10.3 L [place] % (Auto) 10.3 H Eos % (Auto) 3.5 Baso % (Auto) 0.4 Lymph # (Auto) 1.46 [place] # (Auto) 1.5 H Eos # (Auto) 0.5 H Baso # (Auto) 0.1 Abs Immat Gran (auto) 0.06 H Absolute Neuts (auto) 10.6 H Absolute Nucleated RBC 0.000 Nucleated RBC % 0.0 Heparin Anti-Xa Level Factor VIII Activity Factor IX Activity Sodium 137 Potassium 3.8 Chloride 104 Carbon Dioxide 25 Anion Gap 8 BUN 23 H Creatinine 0.91 Estim Creat Clear Calc 170 Estimated GFR > 60 Glucose 158 H Calcium 8.5 Magnesium 2.3 Total Bilirubin 0.9 AST 96 H ALT 90 H Alkaline Phosphatase 87 C-Reactive Protein 22.8 H NT-Pro-B Natriuret Pep 33 Total Protein 7.5 Albumin 3.5 Procalcitonin
[2024-12-09 14:08] LABS: Beta-2 Glycoprotein I Ab, IgG <9 (0-20)
[2024-12-09 15:09] LABS: Factor X, Chromogenic 62 % (82-151)
[2024-12-09] MEDS: ACETAMINOPHEN 500 MG TABLET PO (17:18)
[2024-12-09] MEDS: cefTRIAXone 1 GM in SODIUM CHLORIDE 0.9% IV 50 ML 100 ML IVPB (22:33)
[2024-12-10] VITALS (18 sets, daily range): BP systolic 134–146; BP diastolic 70–74; PULSE 73–96; RESP 16–17; TEMP 36.6; O2SAT 86–98
--- NOTE | 2024-12-10 00:44 | PCRCNOTE ---
Addendum entered by Chuck Cox, [employer]INE [employer]PERATOR 12/10/24 02:31: 0215: RN reports desaturation to 70%, woke patient, he then recovered to mid 90's 0225: placed on HFNC for use of restroom Addendum entered by Chuck Cox, [employer] MACHINE OPERATOR 12/10/24 01:33: 0130: after observing consecutive desaturation events to 85%, oxygen bleed in was increased to 4L/min; SpO2: 93% Addendum entered by Chuck Cox, [employer] MACHINE OPERATOR 12/10/24 01:10: Target SpO2: >90% Original Note: [facility] completed this pm with no issues; upon inspection of home CPAP machine, it was found to be in an unusable state with older, soiled parts needing to be replaced; they state that this machine was purchased outright and have been securing replacement parts for it from [employer]. RT discussed with them the importance of using distilled water, instead of from the tap as this could cause a pneumonia from particulates left behind and taken into the respiratory system. A hospital ResMed was supplied with settings of Autopap 4-20, 2L/min oxygen bleed. 2330: placed on CPAP with 2L/min and overnight oximetry started 0030: SpO2: 82-89%; increased bleed in to 3L/min, SpO2: 89-93%
[2024-12-10 06:16] LABS: Hematocrit 42.6 % (42.0-52.0); Hemoglobin 14.4 g/dL (14.0-18.0); Immature Granulocyte Percent A 0.5 % (0-0.5); Lymphocytes Absolute Auto 1.69 K/mm3 (0.9-3.2); Mean Corpuscular HGB Conc 33.8 g/dl (32-36); Mean Corpuscular Hemoglobin 33.5 pg (26-34); Mean Corpuscular Volume 99.1 fl (80-100); Nucleated Red Blood Cells Absolute Auto 0.000 K/mm3 (0.0-0.012); Nucleated Red Blood Cells Perc 0.0 % (0.0-0.2); Platelet Count Result 265 k/mm3 (150-375); Red Blood Count 4.30 M/mm3 (4.6-6.20); White Blood Count 12.2 K/mm3 (4.5-10.0)
[2024-12-10 07:17] LABS: Alanine Aminotransferase 130 U/L (6-50); Albumin Level 3.5 g/dL (3.5-5.1); Alkaline Phosphatase 99 U/L (38-126); Anion Gap 9 mmol/L (4-12); Aspartate Amino Transferase 113 U/L (17-59); Bilirubin,Total 0.9 mg/dL (0.2-1.3); Blood Urea Nitrogen 18 mg/dL (9-20); Calcium 8.7 mg/dL (8.4-10.2); Carbon Dioxide 25 mmol/L (22-30); Chloride 104 mmol/L (98-107); Estimated CRCL calculation 187 ml/min; Estimated Glomerular Filt Rate > 60; Glucose 138 mg/dL (65-110); Magnesium 2.2 mg/dL (1.6-2.3); Potassium 3.5 mmol/L (3.4-5.0); Sodium 138 mmol/L (137-145); Total Protein 7.7 g/dL (6.3-8.2)
[2024-12-10] MEDS: HYDROmorphone HCL INJ (*CRX) 1 MG/ML SYR 2 MG IV PUSH (07:30)
--- NOTE | 2024-12-10 07:38 | P.PNIM_ITS ---
Progress Note: A&P Assessment and Plan (1) Pneumonia: Code(s): J18.9 - Pneumonia, unspecified organism Status: Acute Assessment and Plan: SOB CT chest bilateral opacities -continue with DuoNebs. F/u Blood and sputum cultures Continue Rocephin and DOxycycline (2) Pulmonary embolus: Code(s): I26.99 - Other pulmonary embolism without acute cor pulmonale Status: Acute Assessment and Plan: With left DVT -CTA shows 1. Pulmonary emboli involving multiple basilar segmental and subsegmental pulmonary arteries in the bilateral lower lobes and possibly also in the right upper lobar and posterior segmental pulmonary arteries. No findings of right heart strain. Venous Doppler showed LLE DVT Continue Xarelto 15mg bid x 21 days, then 20 daily Monitor Discussed with Pulmonology (3) Obstructive sleep apnea syndrome: Code(s): G47.33 - Obstructive sleep apnea (adult) (pediatric) Status: Acute Assessment and Plan: -the patient is compliant with his CPAP machine at home -auto titrate CPAP. (4) Hypertension: Qualifiers: Hypertension type: essential hypertension Qualified Code(s): I10 - Essential (primary) hypertension Code(s): I10 - Essential (primary) hypertension Status: Acute Assessment and Plan: Now within normal limits Continue Amlodipine 10mg, Lisniopril 40mg, Labetalol 100mg po bid, and Triamterne and HCTZ (5) Tobacco abuse: Code(s): Z72.0 - Tobacco use Status: Acute Assessment and Plan: -we discussed the importance of smoking cessation. The patient is in agreement Plan The patient also has psoriasis and uses Skyrizi every 3 months. He stated that this clears up his psoriasis. Acute hypoxemic respiratory failure Markedly improving On HFNC 30 L and 30% No oxygen at baseline Continue titrating oxygen Discussed with Pulmonology and he will wean oxygen down to nasal cannula today Pulmonology following Bilateral flank pain CT AP from 12/04 no acute changes US renal unremarkable CT AP no acute changes PRN pain control monitor DVT prophylaxis on Xarelto PT/OT Subjective Date/time seen: 12/10/24 07:38 Review of Systems Constitutional: Constitutional: Reports as per HPI and Reports no additional constitutional complaints Eyes: Eyes: Reports as per HPI and Reports no additional eye complaints ENT: Reports system reviewed and no additional complaints, except as documented and Reports Normal hearing present Cardiovascular: Cardiovascular: Reports no additional cardiovascular complaints Respiratory: Respiratory: Reports as per HPI and Reports no additional respiratory complaints Gastrointestinal: Gastrointestinal: Reports as per HPI and Reports no additional gastrointestinal complaints Musculoskeletal: Musculoskeletal: Reports no additional musculoskeletal complaints Integumentary/Breasts: Skin/Breast: Reports system reviewed and no additional complaints, except as docu Neurologic: Reports system reviewed and no additional complaints, except as documented and Reports Normal hearing present Psychiatric: Psychiatric: Reports no additional psychiatric complaints and Reports as per HPI Hematologic/Lymphatic: Hematologic/Lymphatic: Reports no additional hematologic/lymphatic complaints Allergic/Immunologic: Allergic/Immunologic: Reports no additional allergic/immunologic complaints Exam Const: General: cooperative, healthy appearing, no acute distress, well developed, awake and well nourished Nutritional Appearance: well nourished Orientation/consciousness: oriented to person, oriented to place, oriented to time and patient oriented x3 Limitations: no limitations HENMT: Head: normal to inspection, No palpable skull fracture present, normocephalic, atraumatic and abrasion Ears: hearing grossly normal bilaterally Eyes: General: appearance normal, both eyes and all related structures Alignment and Position: alignment normal Periorbital: periorbital findings normal Eyelids: eyelids normal Pupils: Equal, round and reactive pupils present EOM: EOMs intact bilaterally Neck: Neck: normal visual inspection, full ROM and no lymphadenopathy Chest: Chest palpation & inspection: normal inspection of the chest Resp: Effort & Inspection: normal respiratory effort Auscultation: clear to auscultation bilaterally Cardio: Palpation: normal PMI Rate: regular rate Rhythm: regular rhythm Heart sounds: S1 normal heart sound present and S2 normal heart sound present Peripheral pulses: Peripheral pulses 2+ throughout GI: Inspection: normal to inspection Auscultation: normal bowel sounds Rectal Exam: deferred Back/Spine/Pelvis: Cervical Spine: cervical ROM normal Skin: General skin exam: normal color Lesions: no lesions Rashes: no rashes Trauma: no lacerations or abrasions Wounds: no wounds Hair: normal Nails: normal Neuro: General: oriented to person, oriented to place, oriented to time and patient oriented x3 Cranial nerves: Yes Equal, round and reactive pupils present and Yes Normal hearing present Cognition (Neuro): normal cognition Speech: normal speech Motor exam (neuro): 5/5 motor strength present throughout Sensory Exam: normal sensation Extrem: General: normal to inspection, no calf tenderness, edema bilateral and pedal edema bilaterally pitting and 2+ Right upper extremity: normal to inspection and shoulder/upper arm Left upper extremity: normal to inspection and shoulder/upper arm Other: Pretibial edema 2+ pitting edema Psych: Appearance: grossly normal Mental Status: mental status grossly normal Speech and movement: Normal speech and movement present Affect: normal affect Attitude: cooperative Thought process: Normal thought process present Insight: Good insight present (Psych) Judgement: Good judgement present (Psych) Objective Data Vital Signs Vital Signs: Vital Signs - 24 hr 12/09/24 07:44 12/09/24 08:00 12/09/24 08:00 Temperature 97.9 F Pulse Rate 76 Respiratory Rate 14 Blood Pressure 134/68 Pulse Oximetry 95 95 95 Oxygen Delivery High Flow Therapy with Na High Flow Therapy with Na Oxygen Flow Rate 30 30 Fraction of Inspired Oxygen 30 30 12/09/24 08:00 12/09/24 09:34 12/09/24 10:00 Temperature Pulse Rate 78 73 82 Respiratory Rate Blood Pressure Pulse Oximetry Oxygen Delivery Oxygen Flow Rate Fraction of Inspired Oxygen 12/09/24 11:12 12/09/24 11:12 12/09/24 11:23 Temperature Pulse Rate 74 78 Respiratory Rate 16 16 Blood Pressure Pulse Oximetry 94 Oxygen Delivery High Flow Nasal Cannula Oxygen Flow Rate 3 Fraction of Inspired Oxygen 12/09/24 12:00 12/09/24 12:00 12/09/24 12:00 Temperature 97.9 F Pulse Rate 73 75 Respiratory Rate 16 Blood Pressure 141/70 H Pulse Oximetry 97 95 Oxygen Delivery High Flow Therapy with Na Oxygen Flow Rate 30 Fraction of Inspired Oxygen 30 12/09/24 14:00 12/09/24 15:21 12/09/24 15:41 Temperature 97.8 F Pulse Rate 83 81 Respiratory Rate 16 Blood Pressure 150/63 H Pulse Oximetry 98 Oxygen Delivery Nasal Cannula Oxygen Flow Rate 3 Fraction of Inspired Oxygen 12/09/24 16:00 12/09/24 16:00 12/09/24 20:00 Temperature 97.8 F 97.8 F Pulse Rate 81 81 88 Respiratory Rate 16 16 Blood Pressure 150/63 H 131/68 Pulse Oximetry 98 97 Oxygen Delivery Oxygen Flow Rate Fraction of Inspired Oxygen 12/09/24 20:00 12/09/24 20:00 12/09/24 21:25 Temperature Pulse Rate 85 98 Respiratory Rate Blood Pressure Pulse Oximetry 95 Oxygen Delivery Nasal Cannula Oxygen Flow Rate 3 Fraction of Inspired Oxygen 12/09/24 22:00 12/09/24 23:20 12/09/24 23:53 Temperature 97.8 F Pulse Rate 85 87 Respiratory Rate 17 Blood Pressure 147/75 H Pulse Oximetry 93 Oxygen Delivery Autopap Oxygen Flow Rate Fraction of Inspired Oxygen 12/10/24 00:00 12/10/24 00:19 12/10/24 00:34 Temperature Pulse Rate 80 87 75 Respiratory Rate 16 16 Blood Pressure Pulse Oximetry 94 89 L Oxygen Delivery Autopap Autopap Oxygen Flow Rate 2 3 Fraction of Inspired Oxygen 12/10/24 01:29 12/10/24 02:27 12/10/24 04:00 Temperature Pulse Rate 82 73 Respiratory Rate 16 17 Blood Pressure 134/70 Pulse Oximetry 95 95 92 Oxygen Delivery Autopap High Flow Nasal Cannula Oxygen Flow Rate 4 4 Fraction of Inspired Oxygen 12/10/24 04:00 12/10/24 05:54 Temperature 97.8 F Pulse Rate 74 Respiratory Rate Blood Pressure Pulse Oximetry Oxygen Delivery Oxygen Flow Rate Fraction of Inspired Oxygen Intake/Output Intake/Output: Intake & Output 12/07/24 12/08/24 12/09/24 12/10/24 23:59 23:59 23:59 23:59 Intake Total 1650 4020 1668 100 Output Total 1475 1850 250 Balance 175 2170 1418 100 Meds/Results Medications: Active Medications Generic Name Dose Route Start Last Admin Trade Name Freq PRN Reason Stop Dose Admin Acetaminophen 500 mg 12/04/24 22:34 12/09/24 17:18 Acetaminophen 500 Mg Tablet PO 500 mg Q6H PRN Administration Mild Pain (1-3) or Fever Hydrocodone Bitart/Acetaminophen 1 tab 12/05/24 23:16 12/09/24 23:35 Hydrocodone/Acetaminophen (*Crx) 7.5-325 Mg Tablet PO 1 tab Q4H PRN Administration Pain Rated 4-6 Amlodipine Besylate 10 mg 12/04/24 22:40 12/09/24 21:24 Amlodipine Besylate 10 Mg Tablet PO 10 mg HS BRAULIO Administration Guaifenesin 1,200 mg 12/06/24 09:00 12/09/24 21:25 Guaifenesin 12 Hr 600 Mg Tabcr PO 1,200 mg Q12HR BRAULIO Administration Hydromorphone HCl 2 mg 12/05/24 23:17 12/10/24 07:30 Hydromorphone Hcl Inj (*Crx) 1 Mg/Ml Syr IV PUSH 2 mg Q3H PRN Administration Pain Rated 7-10 Ceftriaxone Sodium 1 gm/ 50 mls @ 100 mls/hr 12/05/24 22:00 12/09/24 23:07 Sodium Chloride IVPB 12/10/24 22:29 Infused Q24H BRAULIO Infusion Doxycycline Hyclate 100 mg/ 100 mls @ 100 mls/hr 12/09/24 21:00 12/10/24 01:11 Sodium Chloride IVPB 12/10/24 21:59 Infused Q12HR BRAULIO Infusion Labetalol HCl 100 mg 12/06/24 21:00 12/09/24 21:25 Labetalol Hcl 100 Mg Tablet PO 100 mg Q12HR BRAULIO Administration Lisinopril 40 mg 12/05/24 09:00 12/09/24 09:35 Lisinopril 20 Mg Tablet PO 40 mg DAILY BRAULIO Administration Melatonin 3 mg 12/08/24 23:54 12/09/24 23:36 Melatonin 3 Mg Tablet PO 3 mg HS PRN Administration Insomnia Polyethylene Glycol 17 gm 12/09/24 09:00 12/09/24 09:36 Polyethylene Glycol 3350 17 Gm Powd.Pack PO Not Given QAM [facility] Rivaroxaban 15 mg 12/06/24 21:00 12/09/24 17:19 Rivaroxaban 15 Mg Tablet PO 12/27/24 08:01 15 mg BIDWM BRAULIO Administration Rivaroxaban 20 mg 12/28/24 17:00 Rivaroxaban 20 Mg Tablet PO DAILY@1700 [facility] Triamterene/Hydrochlorothiazide 1 tab 12/05/24 09:00 12/09/24 09:34 Triamterene 37.5 Mg/Hctz 25 Mg (Maxzide) Tablet PO 1 tab DAILY [facility] Administration Radiology Results: ITS Impressions Chest/Abdomen/Pelvis CTA 12/04/24 19:35 IMPRESSION: 1. Pulmonary emboli involving multiple basilar segmental and subsegmental pulmonary arteries in the bilateral lower lobes and possibly also in the right upper lobar and posterior segmental pulmonary arteries. No findings of right heart strain. 2. Increasing airspace disease in the bilateral lower lobes, right greater than left and in the posterior right upper lobe suspicious for pulmonary infarcts with differential including pneumonia, atelectasis or some combination thereof. 3. No acute intra-abdominal/pelvic process. 4. Diffuse hepatic steatosis. Venous Doppler Study 12/05/24 08:31 Impression: Left-sided DVT. Renal Ultrasound 12/07/24 09:32 IMPRESSION: 1. Normal kidneys. No hydronephrosis. Abdomen/Pelvis CT 12/07/24 13:47 IMPRESSION: 1. Bibasilar pulmonary infarcts and/or pneumonia. 2. No renal stones or hydronephrosis. 3. No other acute abnormality within abdomen or pelvis. Chest X-Ray 12/09/24 09:01 IMPRESSION: 1. Decreasing opacities in bilateral lower lung zones which could relate to pulm onary infarcts, atelectasis, pneumonia or some combination thereof. Labs Labs: Laboratory Results - last 24 hr 12/05/24 12/06/24 12/06/24 03:55 03:54 20:02 WBC RBC Hgb Hct MCV MCH MCHC RDW Plt Count MPV Immature Gran % (Auto) Neut % (Auto) Lymph % (Auto) [place] % (Auto) Eos % (Auto) Baso % (Auto) Lymph # (Auto) [place] # (Auto) Eos # (Auto) Baso # (Auto) Abs Immat Gran (auto) Absolute Neuts (auto) Absolute Nucleated RBC Nucleated RBC % Heparin Anti-Xa Level 0.89 Factor V Leiden Comment Factor V Leiden Comment Comment Factor IX Activity 97 Factor X Chromogenic 62 L Sodium Potassium Chloride Carbon Dioxide Anion Gap BUN Creatinine Estim Creat Clear Calc Estimated GFR Glucose Lactic Acid Calcium Magnesium Total Bilirubin AST ALT Alkaline Phosphatase C-Reactive Protein NT-Pro-B Natriuret Pep Total Protein Albumin Procalcitonin Beta-2 GPI IgG Ab <9 Heparin-induced Plt Ab 0.081 M.pneumoniae IgM Titer <770 12/09/24 12/09/24 12/10/24 03:53 03:54 06:02 WBC 12.2 H RBC 4.30 L Hgb 14.4 Hct 42.6 MCV 99.1 MCH 33.5 MCHC 33.8 RDW 13.9 Plt Count 265 MPV 8.7 Immature Gran % (Auto) 0.5 Neut % (Auto) 69.9 Lymph % (Auto) 13.9 L [place] % (Auto) 11.3 H Eos % (Auto) 3.7 Baso % (Auto) 0.7 Lymph # (Auto) 1.69 [place] # (Auto) 1.4 H Eos # (Auto) 0.5 H Baso # (Auto) 0.1 Abs Immat Gran (auto) 0.06 H Absolute Neuts (auto) 8.5 H Absolute Nucleated RBC 0.000 Nucleated RBC % 0.0 Heparin Anti-Xa Level Factor V Leiden Factor V Leiden Comment Factor IX Activity Factor X Chromogenic Sodium 138 Potassium 3.5 Chloride 104 Carbon Dioxide 25 Anion Gap 9 BUN 18 Creatinine 0.83 Estim Creat Clear Calc 187 Estimated GFR > 60 Glucose 138 H Lactic Acid 1.0 Calcium 8.7 Magnesium 2.2 Total Bilirubin 0.9 AST 113 H ALT 130 H Alkaline Phosphatase 99 C-Reactive Protein 22.8 H NT-Pro-B Natriuret Pep 33 Total Protein 7.7 Albumin 3.5 Procalcitonin 0.8 Beta-2 GPI IgG Ab Heparin-induced Plt Ab M.pneumoniae IgM Titer Quality VTE Prophylaxis VTE prophylaxis: pharmacologic ordered
--- NOTE | 2024-12-10 08:17 | PM.PNPUL ---
Progress Note: A&P Assessment and Plan (1) Pulmonary embolus: Code(s): I26.99 - Other pulmonary embolism without acute cor pulmonale Status: Acute Assessment and Plan: Patient with a history of unprovoked PE in 10/16/2019 treated with Xarelto for [address] angiogram was negative. Hypercoagulable workup by Hematology was negative. Patient presents now with acute bilateral PE and left popliteal and posterior tibial DVT. Patient is a tobacco user, he has psoriasis on Skyrizi, he is a tobacco user and has elevated hemoglobin at 51.2, he had a left ankle fracture on 08/29/2024 and continued meniscus knee pain limiting his mobility although he does tell me he walks 3000 steps a day. He has had no long plane rides. The patient tells me that his mother from a PE in her 30s and his mother's sisters daughter of a PE in her 50s. On 12/05/2024 patient had worsening oxygenation up to 10 L nasal cannula with saturations 89-92 and was changed to Airvo 40 L 91% FiO2 with saturations 96%. The patient tells me today his pain is better wears it was 10/10 and now it is 9/10. He says he is breathing 15% back to his normal with no phlegm or hemoptysis. I decreased him to Airvo 40 L 82% and his saturations were 93%. Lower extremity Dopplers demonstrated left popliteal and posterior tibial thrombus. Echocardiogram demonstrated LVEF 65-70, normal diastolic function, normal right ventricular size and function, normal right atrial size, there was no tricuspid regurg and no RVSP was calculated. Repeat troponin was negative. Patient had an ABG on 5 L nasal cannula with pH of 7.46/33/81. His role to was discontinued he was placed on IV heparin. Plan: patient tells me he is feeling better today. Patient is hemodynamically stable, troponin is negative x2, BNP is 25, no evidence of RV strain on a CT angiogram or his echocardiogram. Agree with IV heparin at this time given his worsening oxygenation he may require procedures in the future and will make sure he can tolerate anticoagulation at this time. Patient may have a genetic component to his PE-DVT and I will complete hypercoagulable workup with anticardiolipin IgG and IgM, beta 2 glycoprotein IgG, factor 9 activity, factor 8 activity, factor 10 activity, MTHFR mutation. Patient has worsening hypoxia which may be related to his PE and or pneumonia. Currently he is requiring Airvo 40 L 82% with saturations 93%. 12/06/2024: Overall the patient tells me he feels better. He states his breathing is 20% back to his normal. He still has sharp pleuritic chest pain graded as 9/10 worse with deep breathing and movement. He is making more clear phlegm today. He denies hemoptysis. He had a fever to 38.1 last night at 11:30 p.m. when I enter the room he was on high-flow 40 L 80% with saturations 93%. I decreased him to 40 L and 75% and after 11 minutes saturations were 91%. His white blood cell count is 18.6, his creatinine is 1.38, his PTT is 55.3. Yesterday was positive 286 mL. Plan: Slow clinical improvement. Continue with IV heparin. Fever may be related to DVT-PE and or pneumonia. Goal saturation greater than 90%, wean FiO2 as tolerated. Hypercoagulable workup sent. Pulmonary inpatient consultative services will resume on 12/09/2024. Call with questions. 12/09/2024. Patient tells me he is feeling much better. States he is 40% back to his normal. His pain is now rated as 4/10. He denies cough, phlegm or hemoptysis. He is walking better around the room. When I enter the room he was on Airvo 30 L and 31% FiO2 with saturations 95%. I changed him to nasal cannula oxygen and decreased him sequentially down to 3 L with saturations 93%. White blood cell count 14.1, creatinine 0.91. CRP is unchanged from 12/05/2024 at 23 to a value of 22.8. BNP is 33. Procalcitonin has increased from 0.3 on 12/05/2024 to 0.8. Chest x-ray today showed improved infiltrates in the lower lobes compared with 12/06/2024. Plan: Patient now on Rivaroxaban 15 mg p.o. b.i.d. He has had no bleeding complications. 12/10/24: Me he is slowly improving. Overall he is 70% back to his normal. He intermittently has pleural predicted chest pain that is very sharp and debilitating. He has no phlegm and no hemoptysis. He is afebrile. When I enter the room he is on 3 L nasal cannula saturations 97%. I placed him on room air and he desatted to 89% over the next 12 minutes. I placed him back on 2 L nasal cannula saturations were 94%. His white blood cell count is 12.2, his creatinine is 0.83. Yesterday he was positive 1.4 L. His weight today is 193 kg. Plan: From a pulmonary perspective patient is ready to be discharged home on these pulmonary medications: Rivaroxaban 15 mg p.o. b.i.d. for total of 21 days then 20 mg p.o. q.day. Levofloxacin 750 mg p.o. q.day x3 days Guaifenesin 1200 mg p.o. b.i.d. p.r.n. congestion Oxygen at rest and with activity per formal home O2 assessment which I have ordered. When he naps or sleeps: AutoSet 4-20 with 4 L bleed in Follow-up in the Pulmonary Clinic 12/18/24, I gave the patient my business card and informed the pharmacy scheduler. Discussed with [place], will sign off, call with questions. (2) Pneumonia: Code(s): J18.9 - Pneumonia, unspecified organism Status: Acute Assessment and Plan: Patient presents with 3 day history of fatigue, worsening shortness of breath, 1 day worsening chills with sweats and pleuritic pain. His white blood cell count was 17.9, and a CT angiogram of the chest showed increased bibasilar infiltrates compared to 12/03/2024. Patient tells me that the DuoNebs to help him take deeper breaths. 12/05/24: Plan: Patient may have a pneumonia and agree with ceftriaxone and doxycycline at this time. His COVID, influenza, RSV RT PCR assay was negative. I will send a respiratory pathogen panel, urine for Legionella antigen, urine for pneumococcal antigen and serum mycoplasma IgM. Sputum culture has been ordered. Blood cultures are pending. I have ordered procalcitonin, CRP. Patient has no history of asthma or COPD but states that the DuoNebs help him take deeper breaths and will continue these Q 6 hours. 12/06/24: He had a fever to 38.1 last night at 11:30 p.m. when I enter the room he was on high-flow 40 L 80% with saturations 93%. I decreased him to 40 L and 75% and after 11 minutes saturations were 91%. His white blood cell count is 18.6, his creatinine is 1.38, Chest x-ray today with decreased lung volumes and increased bilateral mid and lower lung infiltrates. Plan: Patient is morbidly obese and laying in bed. Decreased lung volumes on chest x-ray today. I will add EzPAP q.i.d.. Patient states the nebulized treatments are helping him but once to administer them during the day and will change to q.4 hours while awake. Has some difficulty expectorating and will add guaifenesin 1200 p.o. b.i.d.. Respiratory pathogen panel, urine for Legionella antigen, urine for pneumococcal antigen and mycoplasma IgM all pending. Blood cultures pending. Sputum culture has been ordered 12/09/24: Patient is afebrile. Leukocytosis persists but is improving. Chest x-ray is improved, oxygenation has improved. Plan: Patient has improved with treatment for bacterial infection as well as PE. He says the DuoNebs are not helping him and I will discontinue. Continue ceftriaxone, day 6 and doxycycline, day 5. 12/10/24: Patient is afebrile. Leukocytosis is improving. Oxygenation has improved. Plan: I will complete a 10 day course of antibiotics with levofloxacin. (3) Hypoxic respiratory failure: Code(s): J96.91 - Respiratory failure, unspecified with hypoxia Status: Acute Assessment and Plan: 12/04/2024 ABG on 5 L nasal cannula 7.46/33/81. 12/05/2024 ABG on 6 L nasal cannula pH 7.40/43/57. There is no evidence of acute or chronic hypercarbic respiratory failure. 12/04 18:15 Room air, sats 91% then 83% required 5 L. 12/04 23:15 5 L NC, sats 94% 12/05 11:45 10 L NC, sats 92% 12/05 15:00 Airvo 40 L, 82%, sats 93% 12/05 20:00 Airvo 40 L, 83%, sats 92% 12/06 08:30 Aivo 40 L, 75%, sats 91 12/07 08:00 Aivo 40 L, 88%, sats 96 12/08 08:00 Aivo 40 L, 65%, sats 95 12/09 08:00 Aivo 30 L, 30%, sats 95 12/09 11:00 3 L NC, sats 94% 12/10 0:80 2 L NC, sats 94% 12/05/24: Patient has worsening hypoxia which may be related to his PE and or pneumonia. Currently he is requiring Airvo 40 L 82% with saturations 93%. 12/06/24: Minimal improvement in oxygenation over the last 24 hours. Goal saturation greater than 90%, wean FiO2 as tolerated. Will get out of bed to chair today, will start EzPAP treatment today. 12/09/24: Continue EzPAP, goal saturation 90%, wean as tolerated. (4) Obstructive sleep apnea syndrome: Code(s): G47.33 - Obstructive sleep apnea (adult) (pediatric) Status: Acute Assessment and Plan: Regarding his obstructive sleep apnea patient tells me he had a home sleep study 4-5 years ago and was told he had severe obstructive sleep apnea was prescribed auto PAP 4-20 by his PCP. He ended up buying the machine from [employer] and now buys his supplies off of [employer]. He uses a nasal mask with and uses the machine every night with good clinical benefit. I have a download from 11/05/2024 through 12/04/2024 from [employer]. He is on AutoSet 4-20. Usage days greater than or equal to 4 hours is 97%. Average usage on days used is 7 hours and 3 minutes. AHI 0.3. Apnea index 0.2, hypopnea index 0.1, central apnea index 0.0. Median pressure is 11.4. Ninety-fifth percentile pressure is 14.0. Maximum pressure is 15.6. Median leak is 4.2. Ninety-fifth percentile leak is 27.2. Maximum leak is 46.5. I interpret this download as excellent compliance, adequate pressures and high leak. 12/05/24: Patient was ordered hospital auto PAP but this machine can only handle 6 L nasal cannula oxygen. I brought a V 60 machine to his room and placed him on CPAP 10 with 80% FiO2 and he said that this was too strong and I decreased him to CPAP 6 and he said that this felt comparable to his home machine. I then trialed the patient on AVAPS with a rate of 14, tidal volume 450, EPAP 4, minimal inspiratory pressure 5, maximal inspiratory pressure 25 and adjusted the flow rates to comfort with a rise of 5 and inspiratory time of 1.2 and he could not tolerate this mode. Plan: [facility] patient should wear V 60 with CPAP 6 and 70% FiO2. If he cannot tolerate this he can be returned to the Airvo. 12/06/24: Patient attempt to wear the hospital CPAP 6 with a fullface mask last night but could not tolerate this as the pressures were too much. Respiratory therapy decreased his CPAP but the patient still could not tolerate this. Plan: Eventually patient will be placed on his home AutoSet 4-20 once his oxygenation improves. 12/09/24: I spoke to the was in the room and she will bring his home CPAP in [facility]. Plan: : Place on home AutoSet 4-20 and 2 L bleed in. I will obtain overnight oximetry on these settings. 12/10/24: Patient attempted to uses home AutoSet 4-20 but the humidification filter was not working properly and he was placed on the hospital AutoSet 4-20 with 2 L bleed in. Overnight oximetry was started on 2 L but he required 4 L to maintain saturations. Recording duration 5 hours and 21 minutes. Average saturation 93%. Low saturation 87%. Time with saturation less than or equal to 88% was 9 minutes. Oxygen desaturation index 8.7. Plan: when he naps or sleeps will place patient on 4 L nasal cannula. (5) Tobacco abuse: Code(s): Z72.0 - Tobacco use Status: Acute Assessment and Plan: Patient smokes 1 pack per day from age 18 for total of 26 pack years. Patient does not check his saturations at home but does have erythrocytosis. Previous workup showed a negative JAK2 mutation. Current hemoglobin is 17.8 and hematocrit is 51.2. Of note, white blood cell count prior to this admission on 6 different occasions had ranged from 11.6 to 14.3 between 10/23/2018 and 12/27/2020. patient with a history of leukocytosis and his BCR-ABL translocation test was negative per Oncology on 01/13/2020. 12/05/24: plan: Will follow hematocrit. At this time do not feel he needs a phlebotomy. Smoking cessation counseling was provided. 12/06/24: Hemoglobin 16.4, hematocrit 47.0. Will follow. 12/09/24: Hemoglobin 14.2, hematocrit 40.9. Will follow off of cigarettes since admission and on adequate oxygenation. 12/10/24: Hemoglobin 14.4. Smoking cessation counseling provided. Subjective Date/time seen: 12/10/24 08:17 Interval history: 10/04/2024: This is a new pulmonary consult for pulmonary embolism and hypoxic respiratory failure 44-year-old man with a history of hypertension, psoriasis, PE on 10/16/2019, severe obstructive sleep apnea on home auto PAP 4-20. regarding patient's prior PE on 10/16/2019 this was an unprovoked PE in the right basilar lower lobe by CT angiogram. He was treated with Xarelto for 3 months. He was seen by Hematology who did a hypercoagulable workup all off of anticoagulation for 1 week which was negative. He has been off anticoagulation since 01/2020. Regarding his obstructive sleep apnea patient tells me he had a home sleep study 4-5 years ago and was told he had severe obstructive sleep apnea was prescribed auto PAP 4-20 by his PCP. He ended up buying the machine from [employer] and now buys his supplies off of [employer]. He uses a nasal mask with and uses the machine every night with good clinical benefit. I have a download from 11/05/2024 through 12/04/2024 from [employer]. He is on AutoSet 4-20. Usage days greater than or equal to 4 hours is 97%. Average usage on days used is 7 hours and 3 minutes. AHI 0.3. Apnea index 0.2, hypopnea index 0.1, central apnea index 0.0. Median pressure is 11.4. Ninety-fifth percentile pressure is 14.0. Maximum pressure is 15.6. Median leak is 4.2. Ninety-fifth percentile leak is 27.2. Maximum leak is 46.5. I interpret this download as excellent compliance, adequate pressures and high leak. On 08/29/2024 the patient fell and fractured his left ankle and tore his left meniscus. He was placed in a boot and the ankle healed but he still has continued knee pain. prior to this injury he would walk 40,000 steps. After this injury he was placed on light duty and is currently walking 3000 steps. On 11/27/2024 the patient noticed that his left leg was more swollen than usual. On 12/01/2024 the patient was watching football in his usual state of health. On 12/02/2024 the patient underwent physical therapy for his leg and said that he felt tired and had some dyspnea on exertion. He denied fever, chills, rigors, phlegm or hemoptysis. On 12/03 the patient had worsening shortness of breath and dyspnea on exertion, developed right-sided pleuritic chest pain and started producing a minimal amount of phlegm. he presented to the emergency room and denied shortness of breath. His blood pressure is 143/88, heart rate 91, respirations 17, saturations on 2 L were 96. White blood cell count was 13.7 creatinine was 0.8. He had a CT angiogram of the chest that had poor contrast timing and was indeterminate for PE. Patient was treated for PE and sent home on Xarelto 15 mg p.o. b.i.d. for 21 days then 20 q.day following. He was told to come back if his symptoms worsened. On 12/04/2024 the patient had sweats, chills, worse right-sided and now left-sided pain And presented to the emergency department. His blood pressure is 160/98, his heart rate 102, respirations 22, room air saturations were 91%. His white blood cell count was 17.9, his creatinine was 0.9, his BNP was 25, his troponin was negative, his COVID influenza RSV RT PCR assay were negative. CT angiogram of the chest abdomen and pelvis demonstrated multiple basilar segmental and subsegmental pulmonary arteries in the bilateral lower lobes and possibly also in the right upper lobar and posterior segmental pulmonary arteries. No findings of right heart strain. Increasing airspace disease in the bilateral lower lobes, right greater than left and in the posterior right upper lobe suspicious for pulmonary infarcts with differential including pneumonia, atelectasis or some combination thereof. patient was started on Xarelto 15 mg p.o. b.i.d., ceftriaxone, azithromycin and given 1 dose of Lasix. Patient was increased to 5 L nasal cannula at 11:15 p.m.. On 12/05/2024 patient had worsening oxygenation up to 10 L nasal cannula with saturations 89-92 and was changed to Airvo 40 L 91% FiO2 with saturations 96%. The patient tells me today his pain is better wears it was 10/10 and now it is 9/10. He says he is breathing 15% back to his normal with no phlegm or hemoptysis. I decreased him to Airvo 40 L 82% and his saturations were 93%. Lower extremity Dopplers demonstrated left popliteal and posterior tibial thrombus. Echocardiogram demonstrated LVEF 65-70, normal diastolic function, normal right ventricular size and function, normal right atrial size, there was no tricuspid regurg and no RVSP was calculated. Repeat troponin was negative. Patient had an ABG on 5 L nasal cannula with pH of 7.46/33/81. His role to was discontinued he was placed on IV heparin. 12/06/2024: Overall the patient tells me he feels better. He states his breathing is 20% back to his normal. He still has sharp pleuritic chest pain graded as 9/10 worse with deep breathing and movement. He is making more clear phlegm today. He denies hemoptysis. He had a fever to 38.1 last night at 11:30 p.m. when I enter the room he was on high-flow 40 L 80% with saturations 93%. I decreased him to 40 L and 75% and after 11 minutes saturations were 91%. His white blood cell count is 18.6, his creatinine is 1.38, his PTT is 55.3. Yesterday was positive 286 mL. Chest x-ray today with decreased lung volumes and increased bilateral mid and lower lung infiltrates. pulmonary inpatient services will resume 12/09/2024. 12/09/2024. Patient tells me he is feeling much better. States he is 40% back to his normal. His pain is now rated as 4/10. He denies cough, phlegm or hemoptysis. He is walking better around the room. When I enter the room he was on Airvo 30 L and 31% FiO2 with saturations 95%. I changed him to nasal cannula oxygen and decreased him sequentially down to 3 L with saturations 93%. White blood cell count 14.1, creatinine 0.91. CRP is unchanged from 12/05/2024 at 23 to a value of 22.8. BNP is 33. Procalcitonin has increased from 0.3 on 12/05/2024 to 0.8. Chest x-ray today showed improved infiltrates in the lower lobes compared with 12/06/2024. 12/10/24: Me he is slowly improving. Overall he is 70% back to his normal. He intermittently has pleural predicted chest pain that is very sharp and debilitating. He has no phlegm and no hemoptysis. He is afebrile. When I enter the room he is on 3 L nasal cannula saturations 97%. I placed him on room air and he desatted to 89% over the next 12 minutes. I placed him back on 2 L nasal cannula saturations were 94%. His white blood cell count is 12.2, his creatinine is 0.83. Yesterday he was positive 1.4 L. His weight today is 193 kg. Patient attempted to uses home AutoSet 4-20 but the humidification filter was not working properly and he was placed on the hospital AutoSet 4-20 with 2 L bleed in. Overnight oximetry was started on 2 L but he required 4 L to maintain saturations. Recording duration 5 hours and 21 minutes. Average saturation 93%. Low saturation 87%. Time with saturation less than or equal to 88% was 9 minutes. Oxygen desaturation index 8.7. DATA: 12/09/24: EXAMINATION: XR chest 1V portable INDICATION: Pulmonary embolism COMPARISON: Chest radiograph dated 12/06/[address] dated 12/04/2024 FINDINGS: Improved aeration at the bilateral lung bases with some persistent patchy and bandlike opacities in the lower lung zones which could represent pulmonary infarct, atelectasis, pneumonia or some combination thereof. No pleural effusion or pneumothorax. Heart size is normal. IMPRESSION: 1. Decreasing opacities in bilateral lower lung zones which could relate to pulmonary infarcts, atelectasis, pneumonia or some combination thereof. 12/05/24: Echo Summary 1. Definity contrast administered improved wall motion interpretation. 2. Left ventricular chamber dimension is normal. 3. Left ventricular systolic function is hyperdynamic, estimated at 65-70. 4. There is mild concentric increased left ventricular wall thickness. 5. The left ventricular diastolic function is normal. Right Ventricle Right ventricular chamber dimension is normal. Right ventricular systolic function is normal. Right Atria Right atrial chamber dimension is normal. No TR, no RVSP obtained 12/05/24: EXAMINATION: US venous doppler ISAAC MCHUGH, 12/05/2024 7:45 CDT HISTORY: pe and edema to legs COMPARISON: None Technique: Hartley-scale and color Doppler images were attempted of the lower saphenofemoral junction, common femoral vein,superficial femoral vein, proximal deep femoral vein, proximal deep femoral vein, popliteal vein and posterior tibial veins. Findings: Deep Venous System:There is a thrombus with diminished flow in the left popliteal and posterior tibial veins, the remaining visualized deep venous system is unremarkable Superficial Venous SystemNo superficial thrombophlebitis. Soft tissues: Soft tissues are unremarkable. Impression: Left-sided DVT. 12/04/24: EXAMINATION: CTA chest PE abdomen pel INDICATION: Shortness of breath COMPARISON: None FINDINGS: Chest: Again seen is suboptimal contrast opacification of the pulmonary arteries which limits evaluation some of the smaller subsegmental pulmonary arteries. There is nonetheless sufficient contrast to definitively identified pulmonary emboli in the several of the basilar segmental and subsegmental pulmonary arteries in the bilateral lower lobes. Decreased attenuation in the right upper lobar and posterior segmental pulmonary arteries is also suspicious for pulmonary embolism however there is some streak artifact from adjacent dense contrast in the superior vena cava which decreases specificity. Patchy consolidation and some surrounding groundglass opacities in the right lower lobe which along with a small peripheral small region of peripheral consolidation in the posterior segment right upper lobe with central groundglass opacity are suspicious for secondary pulmonary infarcts with differential including pneumonia. Consolidation at the basilar aspect of the lingula and bandlike opacity extension across the basilar left lower lobe with similar differential also including atelectasis. Tiny right pleural effusion. Heart size is normal. No leftward bowing of the ventricular septum to suggest right heart strain. No pericardial effusion. Thoracic aorta is normal in caliber with no dissection. No pathologically enlarged thoracic lymphadenopathy. Mild bilateral gynecomastia. Moderate lower thoracic spondylosis. Chronic appearing minimal to mild anterior wedging at T6-T12. Abdomen/pelvis: Diffuse hepatic steatosis with focal sparing along the gallbladder fossa. New small amount of likely vicariously excreted contrast related to CT study from one day prior which layers dependently in the otherwise normal gallbladder. Spleen, pancreas, bilateral adrenal glands and kidneys are normal. Bladder is normal. Bowels including the appendix are normal. No free intraperitoneal gas or fluid. No pathologically enlarged abdominal or pelvic lymphadenopathy. Moderate lumbosacral spondylosis with mild spondylosis more cephalad lumbar spine. IMPRESSION: 1. Pulmonary emboli involving multiple basilar segmental and subsegmental pulmonary arteries in the bilateral lower lobes and possibly also in the right upper lobar and posterior segmental pulmonary arteries. No findings of right heart strain. 2. Increasing airspace disease in the bilateral lower lobes, right greater than left and in the posterior right upper lobe suspicious for pulmonary infarcts with differential including pneumonia, atelectasis or some combination thereof. 3. No acute intra-abdominal/pelvic process. 4. Diffuse hepatic steatosis. 12/27/2020: EXAMINATION: CTA chest PE protocol DATE: 12/27/2020 14:39 INDICATION: Shortness of breath. Prior pulmonary embolus and. TECHNIQUE: Computed tomography (CT) pulmonary angiogram of the chest was performed with 200 mL Omnipaque-350 intravenous contrast. Additional 3D reconstructions utilizing coronal maximum intensity projection (MIP) were performed. Automated exposure control and iterative reconstruction technique were employed. The dose-length product was 1909.70 mGy-cm. COMPARISON: 10/30/2020 FINDINGS: Suboptimal contrast opacification of the pulmonary arteries on both initial and repeat imaging. There is mild streak artifact from dense contrast in the superior vena cava and right atrium. Moderate to severe scattered respiratory motion artifact most prominent in the lower lung zones renders assessment in the subsegmental pulmonary arteries is essentially nondiagnostic. Mild decreased sensitivity in the segmental pulmonary arteries, moderately decreased sensitivity in the smaller subsegmental pulmonary arteries in the mid and upper lung zones. No pulmonary embolism. Small right pleural effusion. There is consolidation in the right lower lobe with significant corresponding volume loss and favor atelectasis over pneumonia. Additional smaller regions of consolidation similarly more likely atelectasis than pneumonia in the left lower lobe, lingula and mild discoid atelectasis in the right middle lobe along the minor fissure. Heart size is normal. No pericardial effusion. Thoracic aorta is normal in caliber with no dissection. No pathologically enlarged thoracic lymphadenopathy. Diffuse hepatic steatosis. Mild anterior wedging of a few lower thoracic vertebral bodies. Mild thoracic spondylosis. IMPRESSION: 1. No evident pulmonary embolism. Evaluation is however significantly limited by suboptimal contrast opacification of the pulmonary arteries and prominent motion artifact. 2. Regions of consolidation in the bilateral lower lungs most prominent in the right lower lobar there is corresponding volume loss and favor atelectasis over pneumonia. 3. Small right pleural effusion. 4. Diffuse hepatic steatosis. 01/23/2020 EXAMINATION: CTA chest PE protocol EXAM DATE: 01/23/2020 15:00 INDICATION: Fatigue. Pulmonary embolus in follow-up. TECHNIQUE: Spiral CTA of the chest (pulmonary arteries) was performed with 200 cc Omnipaque 350 intravenous contrast injection. (Patient was injected twice due to poor pulmonary arterial opacification on 1st scan) Images were acquired during the pulmonary arterial phase. Coronal maximum intensity projection 3D-reconstructions were created by the technologist on dedicated workstation. Axial, coronal and sagittal reformatted images were reviewed. The dose-length product (DLP) for this examination was 2166.15 mGy-cm. The exposure was tailored according to patient size (auto mA exposure control), and iterative reconstruction (ASIR) was used as additional dose reduction technique. Comparison is made to prior examination from 10/16/2019. FINDINGS: There are no pulmonary emboli in the 1st through 3rd order (central and interlobar) pulmonary arteries. Some loss of attenuation in the segmental pulmonary arteries due to respiratory motion, but no intraluminal filling defects suspected. No thoracic aortic dissection. Subsegmental right basilar atelectasis. There are no pleural or pericardial effusions. Tracheobronchial tree is patent. There is no mediastinal, hilar or axillary lymphadenopathy. There is no pneumothorax. Heart normal in size. There is mild coronary arterial calcification, arterial sclerosis. There is hepatic steatosis. There is thoracic spondylosis without osteoblastic or osteolytic lesions identified. Compared to prior study, can't identify the suspected right lower lobe segmental segment. Previously seen small right pleural effusion has resolved, with improvement in the right basilar dependent atelectasis. IMPRESSION: 1. Probable resolution of previously seen segmental pulmonary embolism. 2. Right basilar subsegmental atelectasis. 11/02/2018: EXAMINATION: CTA CHEST (PULMONARY ART) DATE: 11/02/2018 16:49 INDICATION: Hemoptysis. COMPARISON: Chest 2 views 11/02/2018 FINDINGS: The lungs demonstrate minimal atelectasis. No pleural effusion. The heart size is normal. There are coronary artery calcifications. No pericardial effusion. The main pulmonary artery is enlarged, consistent with pulmonary arterial hypertension. There is no pulmonary embolus. There is mild thoracic spondylosis. There is mild chronic anterior wedging of multiple lower thoracic vertebral bodies. IMPRESSION: 1. No pulmonary embolus. 2. Enlargement main pulmonary artery, consistent with pulmonary arterial hypertension. Review of Systems Constitutional: Constitutional: Reports no additional constitutional complaints Eyes: Eyes: Reports no additional eye complaints ENT: Reports system reviewed and no additional complaints, except as documented Cardiovascular: Cardiovascular: Reports no additional cardiovascular complaints Respiratory: Respiratory: Reports no additional respiratory complaints Gastrointestinal: Gastrointestinal: Reports no additional gastrointestinal complaints Musculoskeletal: Musculoskeletal: Reports no additional musculoskeletal complaints Neurologic: Reports system reviewed and no additional complaints, except as documented Psychiatric: Psychiatric: Reports no additional psychiatric complaints Endocrine: Endocrine: Reports no additional endocrine complaints Hematologic/Lymphatic: Hematologic/Lymphatic: Reports no additional hematologic/lymphatic complaints Allergic/Immunologic: Allergic/Immunologic: Reports no additional allergic/immunologic complaints Exam Const: General: cooperative, comfortable and no acute distress Orientation/consciousness: oriented to person, oriented to place and oriented to time Other: obese HENMT: Head: normal to inspection Ears: hearing grossly normal bilaterally Eyes: General: appearance normal, both eyes and all related structures Neck: Neck: normal visual inspection Chest: Chest palpation & inspection: normal inspection of the chest Resp: Effort & Inspection: normal respiratory effort and able to speak in complete sentences Auscultation: no crackles, no rales, no rhonchi, no wheezes and diminished lung sounds Other: obese Cardio: Jugular venous distension: no JVD GI: Inspection: normal to inspection Skin: General skin exam: normal color Neuro: General: oriented to person, oriented to place and oriented to time Extrem: General: normal to inspection Other: Left lower extremity swelling greater than right. Psych: Appearance: grossly normal Objective Data Vital Signs Vital Signs: Vital Signs - 24 hr 12/09/24 09:34 12/09/24 10:00 12/09/24 11:12 Temperature Pulse Rate 73 82 Respiratory Rate Blood Pressure Pulse Oximetry 94 Oxygen Delivery High Flow Nasal Cannula Oxygen Flow Rate 3 Fraction of Inspired Oxygen 12/09/24 11:12 12/09/24 11:23 12/09/24 12:00 Temperature 36.6 C Pulse Rate 74 78 73 Respiratory Rate 16 16 16 Blood Pressure 141/70 H Pulse Oximetry 97 Oxygen Delivery Oxygen Flow Rate Fraction of Inspired Oxygen 12/09/24 12:00 12/09/24 12:00 12/09/24 14:00 Temperature Pulse Rate 75 83 Respiratory Rate Blood Pressure Pulse Oximetry 95 Oxygen Delivery High Flow Therapy with Na Oxygen Flow Rate 30 Fraction of Inspired Oxygen 30 12/09/24 15:21 12/09/24 15:41 12/09/24 16:00 Temperature 36.6 C 36.6 C Pulse Rate 81 81 Respiratory Rate 16 16 Blood Pressure 150/63 H 150/63 H Pulse Oximetry 98 98 Oxygen Delivery Nasal Cannula Oxygen Flow Rate 3 Fraction of Inspired Oxygen 12/09/24 16:00 12/09/24 20:00 12/09/24 20:00 Temperature 36.6 C Pulse Rate 81 88 Respiratory Rate 16 Blood Pressure 131/68 Pulse Oximetry 97 95 Oxygen Delivery Nasal Cannula Oxygen Flow Rate 3 Fraction of Inspired Oxygen 12/09/24 20:00 12/09/24 21:25 12/09/24 22:00 Temperature Pulse Rate 85 98 85 Respiratory Rate Blood Pressure Pulse Oximetry Oxygen Delivery Oxygen Flow Rate Fraction of Inspired Oxygen 12/09/24 23:20 12/09/24 23:53 12/10/24 00:00 Temperature 36.6 C Pulse Rate 87 80 Respiratory Rate 17 Blood Pressure 147/75 H Pulse Oximetry 93 Oxygen Delivery Autopap Oxygen Flow Rate Fraction of Inspired Oxygen 12/10/24 00:19 12/10/24 00:34 12/10/24 01:29 Temperature Pulse Rate 87 75 82 Respiratory Rate 16 16 16 Blood Pressure Pulse Oximetry 94 89 L 95 Oxygen Delivery Autopap Autopap Autopap Oxygen Flow Rate 2 3 4 Fraction of Inspired Oxygen 12/10/24 02:27 12/10/24 04:00 12/10/24 04:00 Temperature Pulse Rate 73 74 Respiratory Rate 17 Blood Pressure 134/70 Pulse Oximetry 95 92 Oxygen Delivery High Flow Nasal Cannula Oxygen Flow Rate 4 Fraction of Inspired Oxygen 12/10/24 05:54 12/10/24 07:51 Temperature 36.6 C 36.6 C Pulse Rate 74 Respiratory Rate 16 Blood Pressure 146/74 H Pulse Oximetry 98 Oxygen Delivery Oxygen Flow Rate Fraction of Inspired Oxygen Intake/Output Intake/Output: Intake & Output 12/07/24 12/08/24 12/09/24 12/10/24 23:59 23:59 23:59 23:59 Intake Total 1650 4020 1668 100 Output Total 1475 1850 250 Balance 175 2170 1418 100 Meds/Results Medications: Active Medications Generic Name Dose Route Start Last Admin Trade Name Freq PRN Reason Stop Dose Admin Acetaminophen 500 mg 12/04/24 22:34 12/09/24 17:18 Acetaminophen 500 Mg Tablet PO 500 mg Q6H PRN Administration Mild Pain (1-3) or Fever Hydrocodone Bitart/Acetaminophen 1 tab 12/05/24 23:16 12/09/24 23:35 Hydrocodone/Acetaminophen (*Crx) 7.5-325 Mg Tablet PO 1 tab Q4H PRN Administration Pain Rated 4-6 Amlodipine Besylate 10 mg 12/04/24 22:40 12/09/24 21:24 Amlodipine Besylate 10 Mg Tablet PO 10 mg HS BRAULIO Administration Guaifenesin 1,200 mg 12/06/24 09:00 12/09/24 21:25 Guaifenesin 12 Hr 600 Mg Tabcr PO 1,200 mg Q12HR BRAULIO Administration Hydromorphone HCl 2 mg 12/05/24 23:17 12/10/24 07:30 Hydromorphone Hcl Inj (*Crx) 1 Mg/Ml Syr IV PUSH 2 mg Q3H PRN Administration Pain Rated 7-10 Ceftriaxone Sodium 1 gm/ 50 mls @ 100 mls/hr 12/05/24 22:00 12/09/24 23:07 Sodium Chloride IVPB 12/10/24 22:29 Infused Q24H BRAULIO Infusion Doxycycline Hyclate 100 mg/ 100 mls @ 100 mls/hr 12/09/24 21:00 12/10/24 01:11 Sodium Chloride IVPB 12/10/24 21:59 Infused Q12HR BRAULIO Infusion Labetalol HCl 100 mg 12/06/24 21:00 12/09/24 21:25 Labetalol Hcl 100 Mg Tablet PO 100 mg Q12HR BRAULIO Administration Lisinopril 40 mg 12/05/24 09:00 12/09/24 09:35 Lisinopril 20 Mg Tablet PO 40 mg DAILY BRAULIO Administration Melatonin 3 mg 12/08/24 23:54 12/09/24 23:36 Melatonin 3 Mg Tablet PO 3 mg HS PRN Administration Insomnia Polyethylene Glycol 17 gm 12/09/24 09:00 12/09/24 09:36 Polyethylene Glycol 3350 17 Gm Powd.Pack PO Not Given [facility] Rivaroxaban 15 mg 12/06/24 21:00 12/09/24 17:19 Rivaroxaban 15 Mg Tablet PO 12/27/24 08:01 15 mg BIDWM BRAULIO Administration Rivaroxaban 20 mg 12/28/24 17:00 Rivaroxaban 20 Mg Tablet PO DAILY@1700 [facility] Triamterene/Hydrochlorothiazide 1 tab 12/05/24 09:00 12/09/24 09:34 Triamterene 37.5 Mg/Hctz 25 Mg (Maxzide) Tablet PO 1 tab DAILY [facility] Administration Radiology Results: ITS Impressions Chest/Abdomen/Pelvis CTA 12/04/24 19:35 IMPRESSION: 1. Pulmonary emboli involving multiple basilar segmental and subsegmental pulmonary arteries in the bilateral lower lobes and possibly also in the right upper lobar and posterior segmental pulmonary arteries. No findings of right heart strain. 2. Increasing airspace disease in the bilateral lower lobes, right greater than left and in the posterior right upper lobe suspicious for pulmonary infarcts with differential including pneumonia, atelectasis or some combination thereof. 3. No acute intra-abdominal/pelvic process. 4. Diffuse hepatic steatosis. Venous Doppler Study 12/05/24 08:31 Impression: Left-sided DVT. Renal Ultrasound 12/07/24 09:32 IMPRESSION: 1. Normal kidneys. No hydronephrosis. Abdomen/Pelvis CT 12/07/24 13:47 IMPRESSION: 1. Bibasilar pulmonary infarcts and/or pneumonia. 2. No renal stones or hydronephrosis. 3. No other acute abnormality within abdomen or pelvis. Chest X-Ray 12/09/24 09:01 IMPRESSION: 1. Decreasing opacities in bilateral lower lung zones which could relate to pulmonary infarcts, atelectasis, pneumonia or some combination thereof. Labs Labs: Laboratory Results - last 24 hr 12/05/24 12/06/24 12/06/24 03:55 03:54 20:02 WBC RBC Hgb Hct MCV MCH MCHC RDW Plt Count MPV Immature Gran % (Auto) Neut % (Auto) Lymph % (Auto) [place] % (Auto) Eos % (Auto) Baso % (Auto) Lymph # (Auto) [place] # (Auto) Eos # (Auto) Baso # (Auto) Abs Immat Gran (auto) Absolute Neuts (auto) Absolute Nucleated RBC Nucleated RBC % Heparin Anti-Xa Level 0.89 Factor V Leiden Comment Factor V Leiden Comment Comment Factor IX Activity 97 Factor X Chromogenic 62 L Sodium Potassium Chloride Carbon Dioxide Anion Gap BUN Creatinine Estim Creat Clear Calc Estimated GFR Glucose Lactic Acid Calcium Magnesium Total Bilirubin AST ALT Alkaline Phosphatase Total Protein Albumin Beta-2 GPI IgG Ab <9 Heparin-induced Plt Ab 0.081 M.pneumoniae IgM Titer <770 12/10/24 06:02 WBC 12.2 H RBC 4.30 L Hgb 14.4 Hct 42.6 MCV 99.1 MCH 33.5 MCHC 33.8 RDW 13.9 Plt Count 265 MPV 8.7 Immature Gran % (Auto) 0.5 Neut % (Auto) 69.9 Lymph % (Auto) 13.9 L [place] % (Auto) 11.3 H Eos % (Auto) 3.7 Baso % (Auto) 0.7 Lymph # (Auto) 1.69 [place] # (Auto) 1.4 H Eos # (Auto) 0.5 H Baso # (Auto) 0.1 Abs Immat Gran (auto) 0.06 H Absolute Neuts (auto) 8.5 H Absolute Nucleated RBC 0.000 Nucleated RBC % 0.0 Heparin Anti-Xa Level Factor V Leiden Factor V Leiden Comment Factor IX Activity Factor X Chromogenic Sodium 138 Potassium 3.5 Chloride 104 Carbon Dioxide 25 Anion Gap 9 BUN 18 Creatinine 0.83 Estim Creat Clear Calc 187 Estimated GFR > 60 Glucose 138 H Lactic Acid 1.0 Calcium 8.7 Magnesium 2.2 Total Bilirubin 0.9 AST 113 H ALT 130 H Alkaline Phosphatase 99 Total Protein 7.7 Albumin 3.5 Beta-2 GPI IgG Ab Heparin-induced Plt Ab M.pneumoniae IgM Titer
[2024-12-10] MEDS: DOXYCYCLINE IV 100 MG in SODIUM CHLORIDE 0.9% IV 100 ML IVPB (08:56)
[2024-12-10] MEDS: TRIAMTERENE 37.5 MG/HCTZ 25 MG (MAXZIDE) TABLET 1 TAB PO (08:57)
[2024-12-10] MEDS: guaiFENesin 12 HR 600 MG TABCR 1200 MG PO (08:57)
[2024-12-10] MEDS: LABETALOL HCL 100 MG TABLET PO (08:57)
[2024-12-10] MEDS: RIVAROXABAN 15 MG TABLET PO (08:58)
[2024-12-10] MEDS: HYDROcodone/acetaminophen (*CRX) 7.5-325 MG TABLET 1 TAB PO (13:13)
--- NOTE | 2024-12-10 13:57 | P.DS_ITS ---
DS: Admitting Diagnosis Discharge Date 12/10/2024 Admitting Diagnosis PNA and pulmonary embolism DS: Discharge Diagnosis Discharge Diagnosis (1) Pneumonia: Code(s): J18.9 - Pneumonia, unspecified organism Status: Acute Assessment and Plan: Please refer to hospital course for brief summary SOB CT chest bilateral opacities -continue with DuoNebs. F/u Blood and sputum cultures Continue Rocephin and DOxycycline (2) Pulmonary embolus: Code(s): I26.99 - Other pulmonary embolism without acute cor pulmonale Status: Acute Assessment and Plan: With left DVT -CTA shows 1. Pulmonary emboli involving multiple basilar segmental and subsegmental pulmonary arteries in the bilateral lower lobes and possibly also in the right upper lobar and posterior segmental pulmonary arteries. No findings of right heart strain. Venous Doppler showed LLE DVT Continue Xarelto 15mg bid x 21 days, then 20 daily Monitor Discussed with Pulmonology (3) Obstructive sleep apnea syndrome: Code(s): G47.33 - Obstructive sleep apnea (adult) (pediatric) Status: Acute Assessment and Plan: -the patient is compliant with his CPAP machine at home -auto titrate CPAP. (4) Hypertension: Qualifiers: Hypertension type: essential hypertension Qualified Code(s): I10 - Essential (primary) hypertension Code(s): I10 - Essential (primary) hypertension Status: Acute Assessment and Plan: Now within normal limits Continue Amlodipine 10mg, Lisniopril 40mg, Labetalol 100mg po bid, and Triamterne and HCTZ (5) Tobacco abuse: Code(s): Z72.0 - Tobacco use Status: Acute Assessment and Plan: -we discussed the importance of smoking cessation. The patient is in agreement Plan The patient also has psoriasis and uses Skyrizi every 3 months. He stated that this clears up his psoriasis. Acute hypoxemic respiratory failure Markedly improving On HFNC 30 L and 30% No oxygen at baseline Continue titrating oxygen Discussed with Pulmonology and he will wean oxygen down to nasal cannula today Pulmonology following Bilateral flank pain CT AP from 12/04 no acute changes US renal unremarkable CT AP no acute changes PRN pain control monitor DVT prophylaxis on Xarelto PT/OT DS: Summary Hospital Course Hospital Course: Patient is a 44-year-old male with a past medical history of unprovoked PE in 10/16/2019 treated with Xarelto for [address] angiogram was negative. Hypercoagulable workup by Hematology was negative. Patient presents now with acute bilateral PE and left popliteal and posterior tibial DVT. Patient is a tobacco user, he has psoriasis on Skyrizi, he is a tobacco user and has elevated hemoglobin at 51.2, he had a left ankle fracture on 08/29/2024 and continued meniscus knee pain limiting his mobility although he does tell me he walks 3000 steps a day. He has had no long plane rides. The patient tells me that his mother from a PE in her 30s and his mother's sisters daughter of a PE in her 50s. Patient reports on 12/02 patient was in physical therapy and was very tired and came to ER on Monday was diagnosed with pulmonary embolism and was discharged on Xarelto. On Monday patient was a belly able to breathe and he was brought in back and was admitted in the hospital. Patient was admitted in the setting of PNA, left lower extremity DVT and pulmonary embolism. Echocardiogram shows left ventricular ejection fraction 65-70% and no evidence of right ventricular strain. CTA chest shows pulmonary embolism without right heart strain. Today patient is feeling better but still complains of pleuritic chest pain. Patient will be discharged with pain medication and follow-up with Hematology/Oncology. In regards to O2 saturation patient will be discharged with PRN oxygen need. Patient is on room air at resting, 2 L while during the activity, 4 L bleed in CPAP patient. Patient is to follow up with PCP within a week for his oxygen needs. Patient also will be discharged with the rivaroxaban and advised to follow-up with otology/Oncology for his hypercoagulable workup. Patient previously followed with . Patient will be discharged with levofloxacin for 5 days for his pneumonia On the day of discharge, the patient was seen and examined. Vital signs were stable. Physical exam were stable and labs were reviewed at length. Discharge instructions, medications, and follow-up appointments were discussed with the patient at length and all day questions were answered. ER warnings were given. Status at Discharge Cognitive/behavioral status at discharge: Stable Time Spent with Patient Time attestation: Total time spent providing and/or coordinating discharge services: 45 minutes Exam Narrative: General appearance: Well-developed, well-nourished Skin: Normal color Head: Normocephalic, nontraumatic Eyes: Clear conjunctiva ENT: Oropharynx normal, ears normal, nose normal Neck: Supple, nontender Chest and respiratory: Airway patent, no respiratory distress, no accessory muscle use Heart: Regular rate/rhythm Abdomen: Soft, diffuse abdominal tenderness mainly on the right side, no organomegaly, quiet bowel sounds Vascular: Normal peripheral pulses, normal capillary refill. Musculoskeletal: Normal range of motion, nontender back Neurologic: Alert and oriented ?3, [employer] is normal as tested, no gross motor deficit Const: General: cooperative, healthy appearing, comfortable, no acute distress, well developed, awake and well nourished Nutritional Appearance: well nourished Orientation/consciousness: oriented to person, oriented to place, oriented to time and patient oriented x3 Limitations: no limitations Other: obese HENMT: Head: normal to inspection, No palpable skull fracture present, normocephalic, atraumatic and abrasion Ears: hearing grossly normal bilaterally Eyes: General: appearance normal, both eyes and all related structures Alignment and Position: alignment normal Periorbital: periorbital findings normal Eyelids: eyelids normal Pupils: Equal, round and reactive pupils present EOM: EOMs intact bilaterally Neck: Neck: normal visual inspection, full ROM and no lymphadenopathy Chest: Chest palpation & inspection: normal inspection of the chest Resp: Effort & Inspection: normal respiratory effort and able to speak in complete sentences Auscultation: clear to auscultation bilaterally, no crackles, no rales, no rhonchi, no wheezes and diminished lung sounds Other: obese Cardio: Jugular venous distension: no JVD Palpation: normal PMI Rate: regular rate Rhythm: regular rhythm Heart sounds: S1 normal heart sound present and S2 normal heart sound present Peripheral pulses: Peripheral pulses 2+ throughout GI: Inspection: normal to inspection Auscultation: normal bowel sounds Rectal Exam: deferred Back/Spine/Pelvis: Cervical Spine: cervical ROM normal Skin: General skin exam: normal color Lesions: no lesions Rashes: no rashes Trauma: no lacerations or abrasions Wounds: no wounds Hair: normal Nails: normal Neuro: General: oriented to person, oriented to place, oriented to time and patient oriented x3 Cranial nerves: Yes Equal, round and reactive pupils present and Yes Normal hearing present Cognition (Neuro): normal cognition Speech: normal speech Motor exam (neuro): 5/5 motor strength present throughout Sensory Exam: normal sensation Extrem: General: normal to inspection, no calf tenderness, edema bilateral and pedal edema bilaterally pitting and 2+ Right upper extremity: normal to inspection and shoulder/upper arm Left upper extremity: normal to inspection and shoulder/upper arm Other: Pretibial edema 2+ pitting edema Psych: Appearance: grossly normal Mental Status: mental status grossly normal Speech and movement: Normal speech and movement present Affect: normal affect Attitude: cooperative Thought process: Normal thought process present Insight: Good insight present (Psych) Judgement: Good judgement present (Psych) DS: Data Data Completed and Pending Labs on day of discharge: Labs from last 24 hours 12/10/24 12/06/24 12/06/24 06:02 20:02 03:54 WBC 12.2 H RBC 4.30 L Hgb 14.4 Hct 42.6 MCV 99.1 MCH 33.5 MCHC 33.8 RDW 13.9 Plt Count 265 MPV 8.7 Immature Gran % (Auto) 0.5 Neut % (Auto) 69.9 Lymph % (Auto) 13.9 L [place] % (Auto) 11.3 H Eos % (Auto) 3.7 Baso % (Auto) 0.7 Lymph # (Auto) 1.69 [place] # (Auto) 1.4 H Eos # (Auto) 0.5 H Baso # (Auto) 0.1 Abs Immat Gran (auto) 0.06 H Absolute Neuts (auto) 8.5 H Absolute Nucleated RBC 0.000 Nucleated RBC % 0.0 Factor V Leiden Factor V Leiden Comment Factor X Chromogenic 62 L Sodium 138 Potassium 3.5 Chloride 104 Carbon Dioxide 25 Anion Gap 9 BUN 18 Creatinine 0.83 Estim Creat Clear Calc 187 Estimated GFR > 60 Glucose 138 H Lactic Acid 1.0 Calcium 8.7 Magnesium 2.2 Total Bilirubin 0.9 AST 113 H ALT 130 H Alkaline Phosphatase 99 Total Protein 7.7 Albumin 3.5 Beta-2 GPI IgG Ab <9 Heparin-induced Plt Ab 0.081 M.pneumoniae IgM Titer <770 12/05/24 03:55 WBC RBC Hgb Hct MCV MCH MCHC RDW Plt Count MPV Immature Gran % (Auto) Neut % (Auto) Lymph % (Auto) [place] % (Auto) Eos % (Auto) Baso % (Auto) Lymph # (Auto) [place] # (Auto) Eos # (Auto) Baso # (Auto) Abs Immat Gran (auto) Absolute Neuts (auto) Absolute Nucleated RBC Nucleated RBC % Factor V Leiden Comment Factor V Leiden Comment Comment Factor X Chromogenic Sodium Potassium Chloride Carbon Dioxide Anion Gap BUN Creatinine Estim Creat Clear Calc Estimated GFR Glucose Lactic Acid Calcium Magnesium Total Bilirubin AST ALT Alkaline Phosphatase Total Protein Albumin Beta-2 GPI IgG Ab Heparin-induced Plt Ab M.pneumoniae IgM Titer Preliminary micro results at discharge 12/04/24 20:32 Blood Culture - Preliminary Blood 12/04/24 20:30 Blood Culture - Preliminary Blood Imaging Radiologist's impression: ITS Impressions Chest X-Ray 12/04/24 18:57 IMPRESSION: 1. Increasing opacities in the bilateral lower lung zones consistent with pulmonary edema or pneumonia. Chest/Abdomen/Pelvis CTA 12/04/24 19:35 IMPRESSION: 1. Pulmonary emboli involving multiple basilar segmental and subsegmental pulmonary arteries in the bilateral lower lobes and possibly also in the right upper lobar and posterior segmental pulmonary arteries. No findings of right heart strain. 2. Increasing airspace disease in the bilateral lower lobes, right greater than left and in the posterior right upper lobe suspicious for pulmonary infarcts with differential including pneumonia, atelectasis or some combination thereof. 3. No acute intra-abdominal/pelvic process. 4. Diffuse hepatic steatosis. Venous Doppler Study 12/05/24 08:31 Impression: Left-sided DVT. Chest X-Ray 12/06/24 07:44 IMPRESSION: 1. Increasing opacities in bilateral mid and lower lung zones consistent with atelectasis, pneumonia and/or pulmonary infarcts likely superimposed over small bilateral pleural effusions. Renal Ultrasound 12/07/24 09:32 IMPRESSION: 1. Normal kidneys. No hydronephrosis. Abdomen/Pelvis CT 12/07/24 13:47 IMPRESSION: 1. Bibasilar pulmonary infarcts and/or pneumonia. 2. No renal stones or hydronephrosis. 3. No other acute abnormality within abdomen or pelvis. Chest X-Ray 12/09/24 09:01 IMPRESSION: 1. Decreasing opacities in bilateral lower lung zones which could relate to pulmonary infarcts, atelectasis, pneumonia or some combination thereof. Discharge Plan Discharge Attending physician on discharge: Logan Ya Consulting providers: Garett Self Discharging Clinician: Logan Ya Anticipated Discharge Date/Time: 12/10/24 14:26 Patient Disposition: Home Activity: as tolerated Diet: as tolerated Discharge Instructions: O2 need:room air at resting, 2 L while during the activity, 4 L bleed in CPAP patient Please follow-up with PCP within a week upon discharge for pulmonary embolism/pneumonia/oxygen needs. Patient is a follow-up with Hematology/Oncology for his pulmonary embolism and hypercoagulable workup In the event of concerning symptoms please return to ED. Patient will be discharged with rivaroxaban. Monitor for any bleeding Please complete the course of antibiotic for 5 days Patient Instructions: Antibiotic Form, Rivaroxaban (By mouth), Pulmonary Embolism (DC), How to Stop Smoking (DC), Using Oxygen at Home (DC) Patient Language: Kyrgyz Stand Alone Forms: General Discharge Information Follow-up/Referrals: Kallie Maurice PA-C [Primary Care Provider, Family Practice] Saad Quintanilla MD [Physician, Hematology] Garett Self MD [Physician, Pulmonology] Discharge Medications: New guaifenesin [Mucus Relief ER] 600 mg Tablet Extended Release 12hr 1,200 mg PO Q12HR Qty: 30 0RF Xarelto 15 mg Tablet 15 mg PO BIDWM Qty: 36 0RF Rx Instructions: Please take rivaroxaban 15 mg p.o. b.i.d. until is 12/27/2024 Xarelto 20 mg Tablet 20 mg PO DAILY@1700 Qty: 30 0RF Rx Instructions: Place take rivaroxaban 20 mg from 01/2025 hydrocodone-acetaminophen 7.5-325 mg tablet 1 tablet PO Q6H PRN (Reason: pain) Qty: 20 0RF levofloxacin 750 mg tablet 750 mg PO DAILY Qty: 5 0RF Continued Skyrizi 150 mg/mL syringe 150 mg subcut [id number] amlodipine 10 mg tablet 10 mg PO HS lisinopril 40 mg tablet 40 mg PO DAILY Qty: 90 2RF triamterene-hydrochlorothiazid 37.5-25 mg tablet 1 tablet PO DAILY Qty: 90 1RF labetalol 100 mg tablet 100 mg PO BID Qty: 180 3RF Discontinued Xarelto DVT-PE Treat 30d Start 15 mg (42)- 20 mg (9) tablets,dose pack See Rx Instructions .ROUTE .COMPLEX Qty: 51 0RF Rx Instructions: take one-15 mg tablet twice daily for 21 days, then one-20 mg tablet once daily; must take with meal/food Date of admission: 12/04/24 20:23 Primary Care Provider: Kallie Maurice Admitting Provider: Harrison Morales Attending physician on admission: Harrison Morales Condition: Stable
--- NOTE | 2024-12-10 14:29 | PCRCNOTE ---
Home o2 eval done, room air resting, 2 liters with activity, 4liters bleed-in with home cpap unit.
== END 2024-12-10 15:44 | disposition home or self-care (01) | DRG 193 ==
LOC: ANHED 18:29 → ANH2MED 20:48 → ANHIMU 12-05 12:45
PROVIDERS: Internal Medicine; Internal Medicine Pulmonary Disease; Nurse Practitioner; Admitting Provider Family Medicine; Emergency Provider Emergency Medicine; PCP Student in an Organized Health Care Education/Training Program; Visit Provider General Practice
DX: J18.9 Pneumonia, unspecified organism (principal); I26.94 Multiple subsegmental thrombotic pulmonary emboli without acute cor pulmonale; J96.01 Acute respiratory failure with hypoxia; Z68.42 Body mass index [BMI] 45.0-49.9, adult; I82.432 Acute embolism and thrombosis of left popliteal vein; I82.442 Acute embolism and thrombosis of left tibial vein; E66.01 Morbid (severe) obesity due to excess calories; G47.33 Obstructive sleep apnea (adult) (pediatric); I10 Essential (primary) hypertension; F17.210 Nicotine dependence, cigarettes, uncomplicated; K76.0 Fatty (change of) liver, not elsewhere classified; L40.9 Psoriasis, unspecified; Z79.01 Long term (current) use of anticoagulants; Z86.711 Personal history of pulmonary embolism; Z99.89 Dependence on other enabling machines and devices; Z83.2 Family history of diseases of the blood and blood-forming organs and certain disorders involving the immune mechanism
CPT/HCPCS: 36415; 36600; 71045; 71275; 74176; 74177; 76770; 80048; 80053; 81001; 81241; 81291; 82103; 82104; 82805; 83605; 83690; 83735; 83880; 84145; 84484; 85018; 85025; 85240; 85250; 85260; 85520; 85610; 85730; 86022; 86140; 86146; 86147; 86738; 87040; 87449; 87637; 87899; 93005; 93970; 94002; 94003; 94618; 94640; 94762; 96374; 96375; 97161; 97165; 99285; A9270; C8929; J0456; J0696; J1171; J1644; J1938; J2405; J7050; Q9957; Q9967

== ENCOUNTER 2024-12-18 12:08 | Outpatient (CLI) | payer OTHER, SELFPAY ==
--- NOTE | ~2024-12-18 | XR_ITS ---
Examination: XR chest 2V Clinical History: J18.9 - Pneumonia, unspecified organism Comparison: 12/09/2024 Technique: PA and Lateral Findings: Cardiomediastinal silhouette normal size and configuration. Scattered linear bibasilar opacities. No acute bony abnormality. IMPRESSION: 1. Improving but persistent scattered nonspecific bibasilar predominant airspace opacities. Reviewed, dictated and finalized at location R. IMPRESSION: 1. Improving but persistent scattered nonspecific bibasilar predominant airspa ce opacities.
--- OUTSIDE RECORDS SUMMARY | 2024-12-18 12:21 | XMS_ITS | Clinical Summary ---
Author Organization [facility] Sameer Burrell Address [address] [place] [address] Care Team Providers Care Refinery Superintendent Name Role Phone Janet Davis MD Primary Care Provider [phone] Allergies No known active allergies Medications amLODIPine [...] Comments Blood Pressure 178/103 01/28/2020 2:25 PM TICKET COLLECTOR first bp 193/108 Pulse 87 01/28/2020 2:25 PM TICKET COLLECTOR Temperature 37.3 C (99.2 F) 01/28/2020 2:25 PM TICKET COLLECTOR Respiratory Rate - - Oxygen Saturation 98% 01/28/2020 2:2 5 PM TICKET COLLECTOR Inhaled Oxygen Concentration - - Weight 186.5 kg (411 lb 3.2 oz) 01/28/2020 2:25 PM TICKET COLLECTOR Height 195.6 cm (6' 5) 01/28/2020 2:25 PM TICKET COLLECTOR Body Mass Index 48.76 01/28/2020 2:25 PM TICKET COLLECTOR Plan of Treatment Health Maintenance Due Date Last Done Comments DTAP/TDAP/TD VACCINES (1 - Tdap) 2001 HEPATITIS B VACCINES (1 of 3 - 19+ 3-dose series) 08/2001 HPV VACCINES (1 - 3-dose SCDM series) 2009 INFLUENZA VACCINE (#1) 2024 Care Teams Refinery Superintendent Relationship Specialty Start Date End Date Janet Davis MD [address] [place] [address] PCP - General Family Practice 12/19/19
[2024-12-18 12:46] LABS: Hematocrit 45.7 % (42.0-52.0); Hemoglobin 15.7 g/dL (14.0-18.0); Immature Granulocyte Percent A 0.6 % (0-0.5); Lymphocytes Absolute Auto 2.55 K/mm3 (0.9-3.2); Mean Corpuscular HGB Conc 34.4 g/dl (32-36); Mean Corpuscular Hemoglobin 32.8 pg (26-34); Mean Corpuscular Volume 95.4 fl (80-100); Nucleated Red Blood Cells Absolute Auto 0.000 K/mm3 (0.0-0.012); Nucleated Red Blood Cells Perc 0.0 % (0.0-0.2); Platelet Count Result 609 k/mm3 (150-375); Red Blood Count 4.79 M/mm3 (4.6-6.20); White Blood Count 14.8 K/mm3 (4.5-10.0)
[2024-12-18 12:56] LABS: Hemoglobin A1C 5.9 % (<5.7)
[2024-12-18 13:00] LABS: INR 1.9; Prothrombin Time 21.3 Seconds (11.1-14.7)
[2024-12-18 13:06] LABS: Alanine Aminotransferase 44 U/L (6-50); Albumin Level 4.0 g/dL (3.5-5.1); Alkaline Phosphatase 88 U/L (38-126); Anion Gap 11 mmol/L (4-12); Aspartate Amino Transferase 37 U/L (17-59); Bilirubin,Total 0.6 mg/dL (0.2-1.3); Blood Urea Nitrogen 16 mg/dL (9-20); Calcium 9.0 mg/dL (8.4-10.2); Carbon Dioxide 25 mmol/L (22-30); Chloride 101 mmol/L (98-107); Cholesterol 158 mg/dL (0-200); Estimated Glomerular Filt Rate > 60; Glucose 113 mg/dL (65-110); HDL Direct 23 mg/dL; Potassium 4.3 mmol/L (3.4-5.0); Sodium 137 mmol/L (137-145); Total Protein 9.3 g/dL (6.3-8.2); Triglycerides 114 mg/dL (<150)
[2024-12-18 13:38] LABS: Hepatitis B Surface Antigen Negative (Negative)
[2024-12-18 13:43] LABS: HAV RESULT Negative (Negative); Hepatitis B Core IgM Result Negative (Negative)
== END 2024-12-18 12:09 | disposition home or self-care (01) ==
LOC: ANHLAB 12:09
PROVIDERS: PCP Family Medicine; Visit Provider Student in an Organized Health Care Education/Training Program
DX: J18.9 Pneumonia, unspecified organism (principal); I10 Essential (primary) hypertension; R73.03 Prediabetes; Z13.220 Encounter for screening for lipoid disorders; R53.83 Other fatigue; T79.0XXA Air embolism (traumatic), initial encounter; K74.60 Unspecified cirrhosis of liver
CPT/HCPCS: 36415; 71046; 80053; 80061; 80074; 83036; 85025; 85610; 85652